=== PATIENT | male | born 1960 | race American Indian/Alaskan Native ===

== ENCOUNTER 2020-08-21 20:41 | Inpatient (IN) | payer MEDICARE ==
--- NOTE | 2020-08-21 21:01 | Emergency Department Report ---
ED Altered Mental Status HPI - General Chief Complaint: Altered Mental Status Stated Complaint: AMS PUI?: No Time Seen by Provider: 08/21/20 20:57 Source: patient, EMS, RN notes reviewed Mode of arrival: Stretcher Limitations: Altered Mental Status, Physical Limitation - History of Present Illness Initial Comments: Patient is a 60-year-old male presents from a local custodial for altered mental status. EMS brought the patient to the emergency room to be evaluated. EMS states that the initial staff states he has not gotten out of bed all day and he normally gets out of bed to go smoke and is weak and tired. Patient was found to be hypotensive by EMS. Patient also has an open chronic ulcer that is foul-smelling on the right lower extremity. Patient denies pain. Patient denies chest pain shortness of breath. Patient denies fever. Patient complains of weakness and fatigue. Patient denies recent travel. Patient denies recent international travel. Patient denies exposure to the novel coronavirus. Patient denies sick contacts. Patient denies fever and chills. Patient denies cough. Patient denies diarr hea. Patient denies coming in contact with anybody with symptoms of the novel coronavirus. MD Complaint: altered mental status, decreased responsiveness, weakness -: Sudden Severity: severe Consistency of Symptoms: constant Treatments Prior to Arrival: IV fluid - Related Data Allergies Allergy/AdvReac Type Severity Reaction Status Date / Time No Known Allergies Allergy Verified 08/21/20 21:39 ED Review of Systems ROS: Stated complaint: AMS Other details as noted in HPI Comment: All other systems reviewed and negative ED Past Medical Hx - Past Medical History Previous Medical History?: Yes Hx Hypertension: Yes Hx CVA: Yes Hx Congestive Heart Failure: Yes Hx Renal Disease: Yes Hx COPD: Yes Hx Dementia: Yes Additional medical history: Chronic ulcers, PVD, diastolic heart failure, vascular dementia, weakness, falls, - Surgical History Past Surgical History?: No - Family History Family history: no significant - Social History Smoking Status: Current Every Day Smoker Substance Use Type: None ED Physical Exam - General Limitations: Altered Mental Status, Physical Limitation General appearance: alert, in no apparent distress - Head Head exam: Present: atraumatic, normocephalic - Eye Eye exam: Present: normal appearance - ENT ENT exam: Present: mucous membranes dry - Neck Neck exam: Present: normal inspection - Respiratory Respiratory exam: Present: normal lung sounds bilaterally. Absent: respiratory distress, wheezes, rales - Cardiovascular Cardiovascular Exam: Present: regular rate, normal rhythm. Absent: systolic murmur, diastolic murmur, rubs, gallop - GI/Abdominal GI/Abdominal exam: Present: soft, normal bowel sounds. Absent: distended, tenderness, guarding - Rectal Rectal exam: Present: deferred - Extremities Exam Extremities exam: Present: normal inspection - Back Exam Back exam: Present: normal inspection - Neurological Exam Neurological exam: Present: alert, altered (Patient is oriented x2. Patient is oriented to person and place. I am GI bleeding is from not taking iron she has heavy periods but not actively vaginal bleeding right now internal medicine) - Psychiatric Psychiatric exam: Present: normal affect, normal mood - Skin Skin exam: Present: warm, dry, normal color, other (Opened ulcer noted to the posterior right lower extremity. Wound bed has a purulent discharge and a foul smell.). Absent: rash - Assessment Assessment Interval: Baseline - Level of Consciousness 1a. Level of Consciousness: alert/keenly responsive - LOC Questions 1b. LOC Questions: answers both correctly - LOC Command 1c. LOC Commands: performs tasks correctly - Best Gaze 2. Best Gaze: normal - Visual 3. Visual: no visual loss - Facial Palsy 4. Facial Palsy: normal symmetrical movement - Motor Arm 5a. Motor Arm Left: no drift 5b. Motor Arm Right: no drift - Motor Leg 6a. Motor Leg Left: no drift 6b. Motor Leg Right: no drift - Limb Ataxia 7. Limb Ataxia: absent - Sensory 8. Sensory: normal - Best Language 9. Best Language: no aphasia - Dysarthria 10. Dysarthria: normal - Extinction and Inattention 11. Extinction/Inattention: no abnormality - Scoring Total Score: 0 Stroke Severity: No Stroke Symptoms ED Course Vital Signs 08/21/20 08/21/20 08/21/20 20:50 21:00 21:15 Temperature Pulse Rate Respiratory Rate Blood Pressure 77/51 85/60 O2 Sat by Pulse 91 99 98 Oximetry 08/21/20 08/21/20 08/21/20 21:30 21:40 21:51 Temperature 97.9 F Pulse Rate 69 71 74 Respiratory 11 L 18 9 L Rate Blood Pressure 77/48 O2 Sat by Pulse 100 90 100 Oximetry 08/21/20 08/21/20 08/21/20 22:00 22:16 22:30 Temperature Pulse Rate 73 74 72 Respiratory 10 L 10 L 10 L Rate Blood Pressure 111/66 118/58 121/61 O2 Sat by Pulse 98 99 98 Oximetry 08/21/20 08/21/20 08/21/20 22:46 23:00 23:16 Temperature Pulse Rate 74 69 72 Respiratory 10 L 10 L 10 L Rate Blood Pressure 103/70 101/63 99/63 O2 Sat by Pulse 98 99 98 Oximetry 08/21/20 08/21/20 08/22/20 23:30 23:46 00:16 Temperature Pulse Rate 73 72 72 Respiratory 9 L 9 L 11 L Rate Blood Pressure 106/62 102/62 105/55 O2 Sat by Pulse 99 100 100 Oximetry 08/22/20 08/22/20 00:30 00:46 Temperature Pulse Rate 75 83 Respiratory 10 L 15 Rate Blood Pressure 110/76 122/77 O2 Sat by Pulse 100 100 Oximetry - Reevaluation(s) Reevaluation #1: Patient is receiving fluids from EMS But the blood pressure still low. Patient will be given another liter of fluid and will monitor blood pressure. Patient started on a sepsis protocol. Due to the patient history of congestive heart failure we will give the fluids over a longer period of time. 08/21/20 21:08 Reevaluation #2: Patient's blood pressure is better. Patient will be given any more fluids slowly. Patient was given clindamycin. 08/21/20 21:37 Reevaluation #3: Patient's blood pressure is improving. Patient states he is feeling a little bit better. I discussed all results with patient. I discussed plan of care with patient. Patient agrees with plan of care and admission. Patient to be admitted to the hospitalist service. 08/21/20 22:57 - Consultations Consultation #1: Hospitalist consulted for admission. Hospitalist to admit patient. 08/21/20 22:57 - Lab Data Result diagrams: 08/21/20 21:15 08/21/20 21:15 Lab Results 08/21/20 08/21/20 08/21/20 Range/Units 21:15 21:15 21:15 WBC 7.3 (4.5-11.0) K/mm3 RBC 3.10 L (3.65-5.03) M/mm3 Hgb 8.9 L (11.8-15.2) gm/dl Hct 26.5 L (35.5-45.6) % MCV 85 (84-94) fl MCH 29 (28-32) pg MCHC 34 (32-34) % RDW 15.5 H (13.2-15.2) % Plt Count 264 (140-440) K/mm3 Lymph % (Auto) 16.5 (13.4-35.0) % [place] % (Auto) 15.0 H (0.0-7.3) % Eos % (Auto) 1.2 (0.0-4.3) % Baso % (Auto) 0.2 (0.0-1.8) % Lymph # (Auto) 1.2 (1.2-5.4) K/mm3 [place] # (Auto) 1.1 H (0.0-0.8) K/mm3 Eos # (Auto) 0.1 (0.0-0.4) K/mm3 Baso # (Auto) 0.0 (0.0-0.1) K/mm3 Seg Neutrophils % 67.1 (40.0-70.0) % Seg Neutrophils # 4.9 (1.8-7.7) K/mm3 PT 14.6 (12.2-14.9) Sec. INR 1.09 (0.87-1.13) Sodium 135 L (137-145) mmol/L Potassium 4.6 (3.6-5.0) mmol/L Chloride 107.5 H (98-107) mmol/L Carbon Dioxide 20 L (22-30) mmol/L Anion Gap 12 mmol/L BUN 97 H (9-20) mg/dL Creatinine 2.7 H (0.8-1.3) mg/dL Estimated GFR 29 ml/min BUN/Creatinine Ratio 36 % Glucose 95 (75-100) mg/dL Lactic Acid (0.7-2.0) mmol/L Calcium 8.3 L (8.4-10.2) mg/dL Total Bilirubin 0.30 (0.1-1.2) mg/dL AST 22 (5-40) units/L ALT 23 (7-56) units/L Alkaline Phosphatase 97 (35-129) units/L Ammonia (25-60) umol/L Total Protein 7.2 (6.3-8.2) g/dL Albumin 3.3 L (3.9-5) g/dL Albumin/Globulin Ratio 0.8 % Plasma/Serum Alcohol (0-0.07) % 08/21/20 08/21/20 08/21/20 Range/Units 21:15 21:15 21:15 WBC (4.5-11.0) K/mm3 RBC (3.65-5.03) M/mm3 Hgb (11.8-15.2) gm/dl Hct (35.5-45.6) % MCV (84-94) fl MCH (28-32) pg MCHC (32-34) % RDW (13.2-15.2) % Plt Count (140-440) K/mm3 Lymph % (Auto) (13.4-35.0) % [place] % (Auto) (0.0-7.3) % Eos % (Auto) (0.0-4.3) % Baso % (Auto) (0.0-1.8) % Lymph # (Auto) (1.2-5.4) K/mm3 [place] # (Auto) (0.0-0.8) K/mm3 Eos # (Auto) (0.0-0.4) K/mm3 Baso # (Auto) (0.0-0.1) K/mm3 Seg Neutrophils % (40.0-70.0) % Seg Neutrophils # (1.8-7.7) K/mm3 PT (12.2-14.9) Sec. INR (0.87-1.13) Sodium (137-145) mmol/L Potassium (3.6-5.0) mmol/L Chloride (98-107) mmol/L Carbon Dioxide (22-30) mmol/L Anion Gap mmol/L BUN (9-20) mg/dL Creatinine (0.8-1.3) mg/dL Estimated GFR ml/min BUN/Creatinine Ratio % Glucose (75-100) mg/dL Lactic Acid 0.60 L (0.7-2.0) mmol/L Calcium (8.4-10.2) mg/dL Total Bilirubin (0.1-1.2) mg/dL AST (5-40) units/L ALT (7-56) units/L Alkaline Phosphatase (35-129) units/L Ammonia 50.0 (25-60) umol/L Total Protein (6.3-8.2) g/dL Albumin (3.9-5) g/dL Albumin/Globulin Ratio % Plasma/Serum Alcohol < 0.01 (0-0.07) % - EKG Data -: EKG Interpreted by Me EKG shows normal: sinus rhythm, axis, intervals, QRS complexes, ST-T waves Rate: normal - Radiology Data Radiology results: report reviewed, image reviewed interpreted by me: Chest x-ray: No pneumonia, no pneumothorax, no foreign body, no osseous findings, no acute findings CHEST 1 VIEW 08/21/2020 8:30 PM INDICATION / CLINICAL INFORMATION: Altered Mental Status. COMPARISON: None available. FINDINGS: SUPPORT DEVICES: None. HEART / MEDIASTINUM: Cardiomegaly LUNGS / PLEURA: Mild increased interstitial prominence in bilateral lungs No pneumothorax. ADDITIONAL FINDINGS: No significant additional findings. IMPRESSION: 1. Cardiomegaly with mild increased pulmonary vascularity Right ankle 3 views INDICATION: Pain FINDINGS: Diffuse soft tissue edema is seen throughout the lower extremity. No bone marrow edema or acute bone findings are definitely seen. Calcaneal spurring is seen. IMPRESSION: Soft tissue ulcerations with diffuse soft tissue edema throughout the lower extremity. No acute fracture CT HEAD WITHOUT CONTRAST INDICATION / CLINICAL INFORMATION: Altered Mental Status. TECHNIQUE: All CT scans at this location are performed using CT dose reduction for ALARA by means of automated exposure control. COMPARISON: None available. FINDINGS: No acute intracranial hemorrhage. There are diffuse areas of low-attenuation periventricular central white matter suggesting nonspecific white matter change. Vascular rashmi cifications are seen throughout the intracranial vessels. Diffuse ethmoid sinus disease and left fr ontal sinus disease. ADDITIONAL FINDINGS: None. IMPRESSION: 1. Diffuse periventricular and central white matter areas of low-attenuation suggesting chronic small vessel disease. If there is concern for acute ischemic change MRI with diffusion recommended. 2. Extensive intracranial atherosclerotic calcifications throughout the vessels. 3. Sinus disease. - Medical Decision Making Patient is a 60-year-old male who presents emergency room with weakness and altered mental status. Patient brought in by EMS from a local emergency room. Patient found to be hypotensive. Patient given fluids but EMS blood pressure remained low. Patient given more fluids after arrival and his blood pressure improved. After initial evaluation, patient was started on sepsis protocol. However because the patient has a history of his heart failure we gave the fluids at a slower rate and lower volume. Patient was given clindamycin for suspected wound infection in his right lower extremity. Patient's source of infection is the right lower extremity ulceration. Patient was given Clinda immediately after initial evaluation. Patient had labs done which revealed acute on chronic renal failure, anemia. Patient had blood cultures done as well. Patient had urine culture done as well. Patient's UA was positive for a UTI. Patient admitted to the hospital service for further evaluation treatment. Critical care time documented due to the multiple reassessments, prolonged time at the bedside, interpretation of diagnostics and labs. - Differential Diagnosis Sepsis, wound infection, hypotension, weakness, altered mental status Critical Care Time: Yes Critical care time in (mins) excluding proc time.: 35 Critical care attestation.: If time is entered above; I have spent that time in minutes in the direct care of this critically ill patient, excluding procedure time. Critical Care Time: 35 minutes ED Disposition Clinical Impression: Wound infection, Weakness Sepsis Qualifiers: Sepsis type: sepsis due to unspecified organism Sepsis acute organ dysfunction status: with acute organ dysfunction Severe sepsis acute organ dysfunction type: encephalopathy Severe sepsis shock status: without septic shock Qualified Code(s): A41.9 - Sepsis, unspecified organism; R65.20 - Severe sepsis without septic shock; G93.40 - Encephalopathy, unspecified Hypotension Qualifiers: Hypotension type: unspecified hypotension type Qualified Code(s): I95.9 - Hypotension, unspecified Ulcer of right ankle Qualifiers: Non-pressure ulcer stage: unspecified non-pressure ulcer stage Qualified Code(s): L97.319 - Non-pressure chronic ulcer of right ankle with unspecified severity Altered mental status Qualifiers: Altered mental status type: unspecified Qualified Code(s): R41.82 - Altered mental status, unspecified Acute on chronic kidney failure Qualifiers: Acute renal failure type: unspecified Chronic kidney disease stage: unspecified stage Qualified Code(s): N17.9 - Acute kidney failure, unspecified; N18.9 - Chronic kidney disease, unspecified UTI (urinary tract infection) Qualifiers: Urinary tract infection type: acute cystitis Hematuria presence: with hematuria Qualified Code(s): N30.01 - Acute cystitis with hematuria Disposition: 09 OP ADMIT IP TO THIS HOSP Is pt being admited?: Yes Does the pt Need Aspirin: No Condition: Critical Time of Disposition: 23:04
[2020-08-21] MEDS ORDERED: SODIUM CHLORIDE 0.9% 1000 ML 1,000 ML IV ONE (21:02)
[2020-08-21] MEDS ORDERED: CLINDAMYCIN 300 MG/50 mL 300 MG/50 ML BAG IV ONE (21:31)
[2020-08-21 21:38] LABS: Basophils % (Auto) 0.2 % (0.0-1.8); Eosinophils # (Auto) 0.1 K/mm3 (0.0-0.4); Eosinophils % (Auto) 1.2 % (0.0-4.3); Hematocrit 26.5 % (35.5-45.6); Hemoglobin 8.9 gm/dl (11.8-15.2); Lymphocytes # (Auto) 1.2 K/mm3 (1.2-5.4); Lymphocytes % (Auto) 16.5 % (13.4-35.0); Mean Corpuscular HGB Conc 34 % (32-34); Mean Corpuscular Volume 85 fl (84-94); Monocytes # (Auto) 1.1 K/mm3 (0.0-0.8); Platelet Count 264 K/mm3 (140-440); Red Cell Distribution Width 15.5 % (13.2-15.2)
[2020-08-21 21:49] LABS: INR 1.09 (0.87-1.13)
[2020-08-21 21:50] LABS: Albumin 3.3 g/dL (3.9-5); Calcium 8.3 mg/dL (8.4-10.2)
--- NOTE | 2020-08-21 22:32 | Cat Scan Report ---
CT HEAD WITHOUT CONTRAST INDICATION / CLINICAL INFORMATION: Altered Mental Status. TECHNIQUE: All CT scans at this location are performed using CT dose reduction for ALARA by means of automated e xposure control. COMPARISON: None available. FINDINGS: No acute intracranial hemorrhage. There are diffuse areas of low-attenuation periventricular central white matter suggesting nonspecific white matter change. Vascular calcifications are seen throughout the intracranial vessels. Diffuse ethmoid sinus disease and left frontal sinus disease. ADDITIONAL FINDINGS: None. IMPRESSION: 1. Diffuse periventricular and central white matter areas of low-attenuation suggesting chronic small vessel disease. If there is concern for acute ischemic change MRI with diffusion recommended. 2. Extensive intracranial atherosclerotic calcifications throughout the vessels. 3. Sinus disease. Signer Name: Ezra Taylor MD Signed: 08/21/2020 10:28 PM Workstation Name: [id number]
--- NOTE | 2020-08-21 22:34 | XRay Report ---
CHEST 1 VIEW 08/21/2020 8:30 PM INDICATION / CLINICAL INFORMATION: Altered Mental Status. COMPARISON: None available. FINDINGS: SUPPORT DEVICES: None. HEART / MEDIASTINUM: Cardiomegaly LUNGS / PLEURA: Mild increased interstitial prominence in bilateral lungs No pneumothorax. ADDITIONAL FINDINGS: No significant additional findings. IMPRESSION: 1. Cardiomegaly with mild increased pulmonary vascularity Right ankle 3 views INDICATION: Pain FINDINGS: Diffuse soft tissue edema is seen throughout the lower extremity. No bone marrow edema or a cute bone findings are definitely seen. Calcaneal spurring is seen. IMPRESSION: Soft tissue ulcerations with diffuse soft tissue edema throughout the lower extremity. No acute fract ure Signer Name: Ezra Taylor MD Signed: 08/21/2020 10:29 PM Workstation Name: [id number]
--- NOTE | 2020-08-21 22:53 | History and Physical Report ---
History of Present Illness Date of examination: 08/21/20 Date of admission: 08/21/2020 Chief complaint: Altered Mental Status History of present illness: 60-year-old -Turkish male with known history of dementia, CVA, CHF, COPD and hypertension resident of a custodial brought into the emergency room today with for evaluation of changes in mental status. He is said to be quite lethargic today and has not been getting out of bed. Patient normally goes out to smoke cigarettes but has been feeling quite weak today. Upon arrival of EMS patient was found to be hypotensive. He has a chronic foul- smelling ulcer on the right ankle. Patient unable to give very good history and most of the information was gotten from the ER staff. Work-up in the emergency room today, he was slightly hypotensive on arrival. CT scan of the head shows chronic small vessel disease. X-ray of the right ankle show soft tissue ulceration with diffuse soft tissue edema throughout the lower extremity, no acute fracture. Labs were significant for worsening BUN and creatinine. Patient has been admitted with chronic right lower extremity ulcer, sepsis, hypotension, acute on chronic renal failure. Past History Past Medical History: COPD, heart failure, hypertension, stroke, other (Chronic Ulcers,Vascular Dementia,Falls) Social history: smoking (Current daily smoker) Family history: no significant family history Medications and Allergies Allergies Allergy/AdvReac Type Severity Reaction Status Date / Time No Known Allergies Allergy Verified 08/21/20 21:39 Review of Systems ROS unobtainable: due to mental status Exam - Constitutional Vitals: Temp Pulse Resp BP Pulse Ox 97.9 F 71 18 77/48 90 08/21/20 21:40 08/21/20 21:40 08/21/20 21:40 08/21/20 21:40 08/21/20 21:40 General appearance: Present: no acute distress, well-nourished - EENT Eyes: Present: PERRL, EOM intact. Absent: scleral icterus ENT: hearing intact, clear oral mucosa, dentition normal - Neck Neck: Present: supple, normal ROM - Respiratory Respiratory effort: normal Respiratory: bilateral: CTA - Cardiovascular Rhythm: regular Heart Sounds: Present: S1 & S2. Absent: gallop, systolic murmur, diastolic murmur - Extremities Extremities: no ischemia, pulses intact, pulses symmetrical, Full ROM Extremity abnormal: edema (1+ bilatera lower extremity edema.), ulceration (Dressing over right ankle ulcer.) Peripheral Pulses: within normal limits - Abdominal General gastrointestinal: Present: soft, non-tender, non-distended, normal bowel sounds. Absent: mass - Integumentary Integumentary: Present: clear, warm, dry. Absent: rash - Musculoskeletal Musculoskeletal: strength equal bilaterally - Psychiatric Psychiatric: appropriate mood/affect, intact judgment & insight, memory intact, cooperative - Neurologic Neurologic: CNII-XII intact, no focal deficits, moves all extremities Results - Labs CBC & Chem 7: 08/21/20 21:15 08/21/20 21:15 Labs: Abnormal lab results 08/21/20 08/21/20 08/21/20 Range/Units 21:15 21:15 21:15 RBC 3.10 L (3.65-5.03) M/mm3 Hgb 8.9 L (11.8-15.2) gm/dl Hct 26.5 L (35.5-45.6) % RDW 15.5 H (13.2-15.2) % [place] % (Auto) 15.0 H (0.0-7.3) % [place] # (Auto) 1.1 H (0.0-0.8) K/mm3 Sodium 135 L (137-145) mmol/L Chloride 107.5 H (98-107) mmol/L Carbon Dioxide 20 L (22-30) mmol/L BUN 97 H (9-20) mg/dL Creatinine 2.7 H (0.8-1.3) mg/dL Lactic Acid 0.60 L (0.7-2.0) mmol/L Calcium 8.3 L (8.4-10.2) mg/dL Albumin 3.3 L (3.9-5) g/dL Assessment and Plan - Patient Problems (1) Sepsis Current Visit: Yes Status: Acute Qualifiers: Sepsis type: sepsis due to unspecified organism Sepsis acute organ dysfunction status: with acute organ dysfunction Severe sepsis acute organ dysfunction type: encephalopathy Severe sepsis shock status: without septic shock Qualified Code(s): A41.9 - Sepsis, unspecified organism; R65.20 - Severe sepsis without septic shock; G93.40 - Encephalopathy, unspecified Plan to address problem: Possibly secondary to underlying chronic right ankle wound. Patient has been started on empiric IV antibiotics and IV fluid. (2) Ulcer of right ankle Current Visit: Yes Status: Acute Qualifiers: Non-pressure ulcer stage: unspecified non-pressure ulcer stage Qualified Code(s): L97.319 - Non-pressure chronic ulcer of right ankle with unspecified severity Plan to address problem: We will continue patient on empiric IV antibiotics. Consult placed to wound care team for evaluation and recommendation. We will consider infectious disease evaluation if needed. (3) Hypotension Current Visit: Yes Status: Acute Qualifiers: Hypotension type: unspecified hypotension type Qualified Code(s): I95.9 - Hypotension, unspecified Plan to address problem: Patient placed on gentle IV hydration. We will monitor vital signs closely. (4) Acute on chronic kidney failure Current Visit: Yes Status: Acute Qualifiers: Acute renal failure type: unspecified Chronic kidney disease stage: unspecified stage Qualified Code(s): N17.9 - Acute kidney failure, unspecified; N18.9 - Chronic kidney disease, unspecified Plan to address problem: Consult placed to nephrology for evaluation and recommendation. (5) DVT prophylaxis Current Visit: Yes Status: Acute Plan to address problem: Patient placed on subcutaneous heparin. (6) Full code status Current Visit: Yes Status: Acute Plan to address problem: Patient is full code.
[2020-08-21] MEDS ORDERED: ONDANSETRON 4 MG/2 ML INJ IV PRN (23:01)
[2020-08-21] MEDS ORDERED: ACETAMINOPHEN 325 MG TAB PO PRN (23:01)
[2020-08-21] MEDS ORDERED: MAGNESIUM HYDROXIDE (MOM) ORAL LIQD UDC PO PRN (23:01)
[2020-08-22 01:23] LABS: Bacteria,Urine 1+ /HPF (Negative); Mucus,Urine FEW /HPF
[2020-08-22 01:24] LABS: Amphetamine Screen,Urine Negative; Benzodiazepines Screen,Urine Negative; Cannabinoid Screen,Urine Negative; Cocaine Screen,Urine Negative; Methadone Screen,Urine Negative; Opiate Screen,Urine Negative; WBC,Urine > 182.0 /HPF (0.0-6.0)
[2020-08-22 01:26] LABS: Color,Urine Yellow (Yellow); Protein,Urine <15 mg/dL mg/dL (Negative)
[2020-08-22 01:27] LABS: Urobilinogen,Urine < 2.0 mg/dL (<2.0)
[2020-08-22 01:30] LABS: Ictotest,Urine Negative (Negative)
[2020-08-22] MEDS: SODIUM CHLORIDE 0.9% 1000 ML 1,000 ML IV SCH ×2 (02:04→22:58)
[2020-08-22] MEDS: MORPHINE 2 MG/1 ML INJ IV PRN ×2 (02:04→21:59)
[2020-08-22] MEDS: HEPARIN 5,000 UNIT/1 ML VIAL SUB-Q SCH ×3 (05:20→21:57)
[2020-08-22 06:00] LABS: Basophils % (Auto) 0.3 % (0.0-1.8); Eosinophils # (Auto) 0.1 K/mm3 (0.0-0.4); Eosinophils % (Auto) 0.6 % (0.0-4.3); Hematocrit 29.2 % (35.5-45.6); Hemoglobin 9.6 gm/dl (11.8-15.2); Mean Corpuscular HGB Conc 33 % (32-34); Mean Corpuscular Volume 84 fl (84-94); Monocytes # (Auto) 1.1 K/mm3 (0.0-0.8); Monocytes % (Auto) 11.2 % (0.0-7.3); Platelet Count 264 K/mm3 (140-440); Red Blood Count 3.47 M/mm3 (3.65-5.03); Red Cell Distribution Width 15.3 % (13.2-15.2)
[2020-08-22] MEDS ORDERED: CLINDAMYCIN 600 MG/50 mL 600 MG/50 ML BAG IV SCH (06:00)
[2020-08-22 06:11] LABS: INR 1.11 (0.87-1.13)
[2020-08-22 06:19] LABS: Calcium 9.2 mg/dL (8.4-10.2)
--- NOTE | 2020-08-22 09:09 | Progress Note ---
Assessment and Plan Assessment and plan: 60-year-old -[place] male with known history of dementia, CVA, CHF, COPD and hypertension resident of a group home brought into the emergency room today with for evaluation of changes in mental status. He is said to be quite lethargic today and has not been getting out of bed. Patient normally goes out to smoke cigarettes but has been feeling quite weak today. Upon arrival of EMS patient was found to be hypotensive. He has a chronic foul- smelling ulcer on the right ankle. Patient unable to give very good history and most of the information was gotten from the ER staff. Work-up in the emergency room today, he was slightly hypotensive on arrival. CT scan of the head shows chronic small vessel disease. X-ray of the right ankle show soft tissue ulceration with diffuse soft tissue edema throughout the lower extremity, no acute fracture. Labs were significant for worsening BUN and creatinine. Patient has been admitted with chronic right lower extremity ulcer, sepsis, hypotension, acute on chronic renal failure. 08/22: ID consulted, awaiting wound management, may need Debridement. Sitter requested. Continue supportive care. (1) Sepsis Current Visit: Yes Status: Acute Qualifiers: Sepsis type: sepsis due to unspecified organism Sepsis acute organ dysfunction status: with acute organ dysfunction Severe sepsis acute organ dysfunction type: encephalopathy Severe sepsis shock status: without septic shock Qualified Code(s): A41.9 - Sepsis, unspecified organism; R65.20 - Severe sepsis without septic shock; G93.40 - Encephalopathy, unspecified Plan to address problem: Possibly secondary to underlying chronic right ankle wound. Patient has been started on empiric IV antibiotics and IV fluid. (2) Ulcer of right ankle Current Visit: Yes Status: Acute Qualifiers: Non-pressure ulcer stage: unspecified non-pressure ulcer stage Qualified Code(s): L97.319 - Non-pressure chronic ulcer of right ankle with unspecified severity Plan to address problem: We will continue patient on empiric IV antibiotics. Consult placed to wound care team for evaluation and recommendation. We will consider infectious disease evaluation if needed. (3) Hypotension Current Visit: Yes Status: Acute Qualifiers: Hypotension type: unspecified hypotension type Qualified Code(s): I95.9 - Hypotension, unspecified Plan to address problem: Patient placed on gentle IV hydration. We will monitor vital signs closely. (4) Acute on chronic kidney failure Current Visit: Yes Status: Acute Qualifiers: Acute renal failure type: unspecified Chronic kidney disease stage: unspecified stage Qualified Code(s): N17.9 - Acute kidney failure, unspecified; N18.9 - Chronic kidney disease, unspecified Plan to address problem: Consult placed to nephrology for evaluation and recommendation. (5) DVT prophylaxis Current Visit: Yes Status: Acute Plan to address problem: Patient placed on subcutaneous heparin. (6) Full code status Current Visit: Yes Status: Acute Plan to address problem: Patient is full code. History Interval history: Patient seen and examined this morning still lethargic, confused Hospitalist Physical - Physical exam Narrative exam: General appearance: Present: no acute distress, well-nourished otherwise chronically ill-appearing - EENT Eyes: Present: PERRL, EOM intact. Absent: scleral icterus ENT: hearing intact, clear oral mucosa, dentition normal - Neck Neck: Present: supple, normal ROM - Respiratory Respiratory effort: normal Respiratory: bilateral: CTA - Cardiovascular Rhythm: regular Heart Sounds: Present: S1 & S2. Absent: gallop, systolic murmur, diastolic murmur - Extremities Extremities: no ischemia, pulses intact, pulses symmetrical, Full ROM Extremity abnormal: edema (1+ bilatera lower extremity edema.), ulceration (Dressing over right ankle ulcer.) Peripheral Pulses: within normal limits - Abdominal General gastrointestinal: Present: soft, non-tender, non-distended, normal bowel sounds. Absent: mass - Integumentary Integumentary: Present: clear, warm, dry. Absent: rash - Musculoskeletal Musculoskeletal: strength equal bilaterally - Psychiatric Psychiatric: a confused, lacks insight into his clinical condition - Neurologic Neurologic: CNII-XII intact, no focal deficits, moves all extremities - Constitutional Vitals: Temp Pulse Resp BP Pulse Ox 98.8 F 95 H 20 159/92 97 08/22/20 08:27 08/22/20 08:27 08/22/20 08:27 08/22/20 08:27 08/22/20 08:27 General appearance: Present: no acute distress, well-nourished Results - Labs CBC & Chem 7: 08/22/20 05:29 08/22/20 05:29 Labs: Laboratory Last Values WBC 9.9 K/mm3 (4.5-11.0) 08/22/20 05:29 RBC 3.47 M/mm3 (3.65-5.03) L 08/22/20 05:29 Hgb 9.6 gm/dl (11.8-15.2) L 08/22/20 05:29 Hct 29.2 % (35.5-45.6) L 08/22/20 05:29 MCV 84 fl (84-94) 08/22/20 05:29 MCH 28 pg (28-32) 08/22/20 05:29 MCHC 33 % (32-34) 08/22/20 05:29 RDW 15.3 % (13.2-15.2) H 08/22/20 05:29 Plt Count 264 K/mm3 (140-440) 08/22/20 05:29 Lymph % (Auto) 10.0 % (13.4-35.0) L 08/22/20 05:29 [place] % (Auto) 11.2 % (0.0-7.3) H 08/22/20 05:29 Eos % (Auto) 0.6 % (0.0-4.3) 08/22/20 05:29 Baso % (Auto) 0.3 % (0.0-1.8) 08/22/20 05:29 Lymph # (Auto) 1.0 K/mm3 (1.2-5.4) L 08/22/20 05:29 [place] # (Auto) 1.1 K/mm3 (0.0-0.8) H 08/22/20 05:29 Eos # (Auto) 0.1 K/mm3 (0.0-0.4) 08/22/20 05:29 Baso # (Auto) 0.0 K/mm3 (0.0-0.1) 08/22/20 05:29 Seg Neutrophils % 77.9 % (40.0-70.0) H 08/22/20 05:29 Seg Neutrophils # 7.7 K/mm3 (1.8-7.7) 08/22/20 05:29 PT 14.8 Sec. (12.2-14.9) 08/22/20 05:29 INR 1.11 (0.87-1.13) 08/22/20 05:29 Sodium 145 mmol/L (137-145) D 08/22/20 05:29 Potassium 4.7 mmol/L (3.6-5.0) 08/22/20 05:29 Chloride 111.4 mmol/L (98-107) H 08/22/20 05:29 Carbon Dioxide 22 mmol/L (22-30) 08/22/20 05:29 Anion Gap 16 mmol/L 08/22/20 05:29 BUN 90 mg/dL (9-20) H 08/22/20 05:29 Creatinine 2.2 mg/dL (0.8-1.3) H 08/22/20 05:29 Estimated GFR 37 ml/min 08/22/20 05:29 BUN/Creatinine Ratio 41 % 08/22/20 05:29 Glucose 85 mg/dL (75-100) 08/22/20 05:29 Lactic Acid 0.40 mmol/L (0.7-2.0) L 08/22/20 00:29 Calcium 9.2 mg/dL (8.4-10.2) 08/22/20 05:29 Total Bilirubin 0.30 mg/dL (0.1-1.2) 08/21/20 21:15 AST 22 units/L (5-40) 08/21/20 21:15 ALT 23 units/L (7-56) 08/21/20 21:15 Alkaline Phosphatase 97 units/L (35-129) 08/21/20 21:15 Ammonia 50.0 umol/L (25-60) 08/21/20 21:15 Total Protein 7.2 g/dL (6.3-8.2) 08/21/20 21:15 Albumin 3.3 g/dL (3.9-5) L 08/21/20 21:15 Albumin/Globulin Ratio 0.8 % 08/21/20 21:15 Urine Color Yellow (Yellow) 08/22/20 Unknown Urine Turbidity Clear (Clear) 08/22/20 Unknown Urine pH 5.0 (5.0-7.0) 08/22/20 Unknown Ur Specific [place] 1.020 (1.003-1.030) 08/22/20 Unknown Urine Protein <15 mg/dl mg/dL (Negative) 08/22/20 Unknown Urine Glucose (UA) Negative mg/dL (Negative) 08/22/20 Unknown Urine Ketones Negative mg/dL (Negative) 08/22/20 Unknown Urine Nitrite Negative (Negative) 08/22/20 Unknown Ur Reducing Substances Not Reportable 08/22/20 Unknown Urine Ictotest Negative (Negative) 08/22/20 Unknown Urine Urobilinogen < 2.0 mg/dL (<2.0) 08/22/20 Unknown Ur Leukocyte Esterase Moderate (Negative) 08/22/20 Unknown Urine WBC (Auto) > 182.0 /HPF (0.0-6.0) H 08/22/20 Unknown Urine RBC (Auto) 5.0 /HPF (0.0-6.0) 08/22/20 Unknown U Epithel Cells (Auto) 1.0 /HPF (0-13.0) 08/22/20 Unknown Urine Bacteria (Auto) 1+ /HPF (Negative) 08/22/20 Unknown Urine WBC Clumps 2+ /HPF 08/22/20 Unknown Urine Mucus Few /HPF 08/22/20 Unknown Urine Yeast (Budding) 1+ /HPF 08/22/20 Unknown Urine Opiates Screen Negative 08/22/20 Unknown Urine Methadone Screen Negative 08/22/20 Unknown Ur Barbiturates Screen Negative 08/22/20 Unknown Ur Phencyclidine Scrn Negative 08/22/20 Unknown Ur Amphetamines Screen Negative 08/22/20 Unknown U Benzodiazepines Scrn Negative 08/22/20 Unknown Urine Cocaine Screen Negative 08/22/20 Unknown U Marijuana (THC) Screen Negative 08/22/20 Unknown Drugs of Abuse Note Disclamer 08/22/20 Unknown Plasma/Serum Alcohol < 0.01 % (0-0.07) 08/21/20 21:15 Microbiology: Microbiology 08/21/20 21:15 Peripheral/Venous Blood Culture - Preliminary Culture in Progress 08/21/20 21:34 Peripheral/Venous Blood Culture - Preliminary Culture in Progress Active Medications - Current Medications Current Medications: Generic Name Dose Route Start Last Admin Trade Name Freq PRN Reason Stop Dose Admin Acetaminophen 650 mg 08/21/20 23:01 Acetaminophen 325 Mg Tab PO Q4H PRN Pain MILD(1-3)/Fever >100.5/DEVI Heparin Sodium (Porcine) 5,000 unit 08/22/20 06:00 08/22/20 05:20 Heparin 5,000 Unit/1 Ml Vial SUB-Q 5,000 unit Q8HR ELIOT Administration Sodium Chloride 1,000 mls @ 75 mls/hr 08/21/20 23:15 08/22/20 02:04 Nacl 0.9% 1000 Ml IV 75 mls/hr DIRECT ELIOT Administration Clindamycin HCl 600 mg in 50 mls @ 100 mls/hr 08/22/20 06:00 08/22/20 05:14 Cleocin 600 Mg/50 Ml IV 100 mls/hr Q8H ELIOT Administration Protocol Magnesium Hydroxide 30 ml 08/21/20 23:01 Magnesium Hydroxide (Mom) Oral Liqd Udc PO Q4H PRN Constipation Morphine Sulfate 2 mg 08/21/20 23:01 08/22/20 02:04 Morphine 2 Mg/1 Ml Inj IV 2 mg Q4H PRN Administration Pain, Moderate (4-6) Ondansetron HCl 4 mg 08/21/20 23:01 Ondansetron 4 Mg/2 Ml Inj IV Q8H PRN Nausea And Vomiting Sodium Chloride 10 ml 08/22/20 10:00 Sodium Chloride 0.9% 10 Ml Flush Syringe IV BID ELIOT Sodium Chloride 10 ml 08/21/20 23:01 Sodium Chloride 0.9% 10 Ml Flush Syringe IV PRN PRN LINE FLUSH
--- NOTE | 2020-08-22 10:31 | Consultation ---
History of Present Illness - Reason for Consult Consult date: 08/22/20 acute renal failure - History of Present Illness The patient is a 60 YO AAM with known history of HTN, Dementia, CVA, CHF, COPD and NH resident who was brought into the [facility] ED 08/21 for evaluation of AMS. Patient was not able to provide any history and there was no family member at the bedside. Per chart patient normally goes out to smoke cigarettes but was feeling quite weak to get up. Upon arrival of EMS patient was found to be hypotensive. CT scan of the head showed chronic small vessel disease. X-ray of the right ankle showed soft tissue ulceration with diffuse soft tissue edema throughout the lower extremity, no acute fracture. Labs significant for BUN 97, creatinine 2.7 and bicarb 20. Patient was admitted with right lower extremity ulcer, ?sepsis, hypotension and DANIKA. Nephrology was consulted for further evaluation and treatment of DANIKA. Past History Past Medical History: COPD, heart failure, hypertension, stroke, other (Chronic Ulcers,Vascular Dementia,Falls) Social history: smoking (Current daily smoker) Family history: no significant family history Medications and Allergies Allergies Allergy/AdvReac Type Severity Reaction Status Date / Time No Known Allergies Allergy Verified 08/21/20 21:39 Active Meds: Active Medications Acetaminophen (Acetaminophen 325 Mg Tab) 650 mg PO Q4H PRN PRN Reason: Pain MILD(1-3)/Fever >100.5/DEVI Heparin Sodium (Porcine) (Heparin 5,000 Unit/1 Ml Vial) 5,000 unit SUB-Q Q8HR ELIOT Last Admin: 08/22/20 05:20 Dose: 5,000 unit Documented by: Sodium Chloride (Nacl 0.9% 1000 Ml) 1,000 mls @ 75 mls/hr IV DIRECT ELIOT Last Admin: 08/22/20 02:04 Dose: 75 mls/hr Documented by: Clindamycin HCl (Cleocin 600 Mg/50 Ml) 600 mg in 50 mls @ 100 mls/hr IV Q8H ELIOT; Protocol Last Admin: 08/22/20 05:14 Dose: 100 mls/hr Documented by: Magnesium Hydroxide (Magnesium Hydroxide (Mom) Oral Liqd Udc) 30 ml PO Q4H PRN PRN Reason: Constipation Morphine Sulfate (Morphine 2 Mg/1 Ml Inj) 2 mg IV Q4H PRN PRN Reason: Pain, Moderate (4-6) Last Admin: 08/22/20 02:04 Dose: 2 mg Documented by: Ondansetron HCl (Ondansetron 4 Mg/2 Ml Inj) 4 mg IV Q8H PRN PRN Reason: Nausea And Vomiting Sodium Chloride (Sodium Chloride 0.9% 10 Ml Flush Syringe) 10 ml IV BID ELIOT Sodium Chloride (Sodium Chloride 0.9% 10 Ml Flush Syringe) 10 ml IV PRN PRN PRN Reason: LINE FLUSH Review of Systems ROS unobtainable: due to mental status Exam - Vital Signs Vital signs: Vital Signs Pulse Ox 91 08/21/20 20:50 Results - Lab Results 08/22/20 05:29 08/22/20 05:29 Most recent lab results Calcium 9.2 mg/dL (8.4-10.2) 08/22/20 05:29 Assessment and Plan 1. Acute kidney injury: Vasomotor DANIKA in the setting of hypotension / shock. Urine studies and Renal US ordered. Baseline renal function unknown. Continue IV fluids. Monitor renal function. Creatinine level is improving. Renal prognosis is guarded. Avoid nephrotoxic agents. Meds dosage based on GFR. 2. FEN: Monitor lytes and volume status. 3. Hypotension: BP is improving. 4. UTI: UA with pyuria, follow-up urine cultures. Followed by ID. 5. Chronic right lower extremity wound: Wound care. 6. Anemia, POA: Monitor. Subjective: Patient was seen and examined at the bedside. Examination: General appearance: well-developed, appears stated age, no distress HEENT: ATNC, MATILDE Neck: trachea midline Respiratory: Clear to Auscultation Heart: regular, S1S2, no murmur Gastrointestinal: soft, normoactive bowel sounds, not tender, not distended Integumentary: R leg covered with dressing, LE stasis changes noted Neurologic: lethargic, confused, not following any command Ext: R leg warm to touch
--- NOTE | 2020-08-22 12:38 | Consultation ---
History of Present Illness - Reason for Consult Consult date: 08/22/20 t Requesting physician: GRANT BRANCH - History of Present Illness The patient is a 60-year-old male with dementia, CVA, COPD, jail resident was admitted to the hospital due to change in mental status and concern for wound infection on his right leg. Upon evaluation in the ER, he was afebrile. Labs did not show any leukocytosis. Chemistry profile showed creatinine of 2.7. UA also showed pyuria. Infectious diseases was consulted for additional evaluation. Patient is a poor historian. Denies any specific complaints at this time. Review of Systems: Limited due to above Past History Past Medical History: COPD, heart failure, hypertension, stroke, other (Chronic Ulcers,Vascular Dementia,Falls) Social history: smoking (Current daily smoker) Family history: no significant family history Medications and Allergies Allergies Allergy/AdvReac Type Severity Reaction Status Date / Time No Known Allergies Allergy Verified 08/21/20 21:39 Active Meds: Active Medications Acetaminophen (Acetaminophen 325 Mg Tab) 650 mg PO Q4H PRN PRN Reason: Pain MILD(1-3)/Fever >100.5/DEVI Heparin Sodium (Porcine) (Heparin 5,000 Unit/1 Ml Vial) 5,000 unit SUB-Q Q8HR ELIOT Last Admin: 08/22/20 05:20 Dose: 5,000 unit Documented by: Sodium Chloride (Nacl 0.9% 1000 Ml) 1,000 mls @ 75 mls/hr IV DIRECT ELIOT Last Admin: 08/22/20 02:04 Dose: 75 mls/hr Documented by: Magnesium Hydroxide (Magnesium Hydroxide (Mom) Oral Liqd Udc) 30 ml PO Q4H PRN PRN Reason: Constipation Morphine Sulfate (Morphine 2 Mg/1 Ml Inj) 2 mg IV Q4H PRN PRN Reason: Pain, Moderate (4-6) Last Admin: 08/22/20 02:04 Dose: 2 mg Documented by: Ondansetron HCl (Ondansetron 4 Mg/2 Ml Inj) 4 mg IV Q8H PRN PRN Reason: Nausea And Vomiting Sodium Chloride (Sodium Chloride 0.9% 10 Ml Flush Syringe) 10 ml IV BID [facility] Last Admin: 08/22/20 10:39 Dose: 10 ml Documented by: Sodium Chloride (Sodium Chloride 0.9% 10 Ml Flush Syringe) 10 ml IV PRN PRN PRN Reason: LINE FLUSH Physical Examination - Physical Exam Narrative exam: Physical Exam: Constitutional: Alert, cooperative. No acute distress Head, Ears, Nose: Normocephalic, atraumatic. External ears, nose normal Eyes: Conjunctivae/corneas clear. No icterus. No ptosis. Neck: Supple, no meningeal signs Cardiovascular: S1, S2 normal. Respiratory: Good air entry, clear to auscultation bilaterally GI: Soft, non-tender; bowel sounds normal. No peritoneal signs Musculoskeletal: RLE edema with a large wound that appears heavily colonized with some slough, wound suggestive of likely pyoderma Skin: No rash or abscess Hem/Lymphatic: No palpable cervical or supraclavicular nodes. No lymphangitis Psych: Flat affect Neurological: Awake, alert, answering questions - Constitutional Vitals: Vital Signs Temp Pulse Resp BP Pulse Ox 98.8 F 95 H 20 159/92 97 08/22/20 08:27 08/22/20 08:27 08/22/20 08:27 08/22/20 08:27 08/22/20 08:27 Temperature -Last 24 Hours Temperature 98.8 F Temperature 97.8 F Temperature 98.5 F Temperature 97.9 F Results - Labs CBC & Chem 7: 08/22/20 05:29 08/22/20 05:29 Labs: Abnormal lab results 08/21/20 08/21/20 08/21/20 Range/Units 21:15 21:15 21:15 RBC 3.10 L (3.65-5.03) M/mm3 Hgb 8.9 L (11.8-15.2) gm/dl Hct 26.5 L (35.5-45.6) % RDW 15.5 H (13.2-15.2) % Lymph % (Auto) (13.4-35.0) % [place] % (Auto) 15.0 H (0.0-7.3) % Lymph # (Auto) (1.2-5.4) K/mm3 [place] # (Auto) 1.1 H (0.0-0.8) K/mm3 Seg Neutrophils % (40.0-70.0) % Sodium 135 L (137-145) mmol/L Chloride 107.5 H (98-107) mmol/L Carbon Dioxide 20 L (22-30) mmol/L BUN 97 H (9-20) mg/dL Creatinine 2.7 H (0.8-1.3) mg/dL Lactic Acid 0.60 L (0.7-2.0) mmol/L Calcium 8.3 L (8.4-10.2) mg/dL Albumin 3.3 L (3.9-5) g/dL Urine WBC (Auto) (0.0-6.0) /HPF 08/22/20 08/22/20 08/22/20 Range/Units 00:29 05:29 05:29 RBC 3.47 L (3.65-5.03) M/mm3 Hgb 9.6 L (11.8-15.2) gm/dl Hct 29.2 L (35.5-45.6) % RDW 15.3 H (13.2-15.2) % Lymph % (Auto) 10.0 L (13.4-35.0) % [place] % (Auto) 11.2 H (0.0-7.3) % Lymph # (Auto) 1.0 L (1.2-5.4) K/mm3 [place] # (Auto) 1.1 H (0.0-0.8) K/mm3 Seg Neutrophils % 77.9 H (40.0-70.0) % Sodium (137-145) mmol/L Chloride 111.4 H (98-107) mmol/L Carbon Dioxide (22-30) mmol/L BUN 90 H (9-20) mg/dL Creatinine 2.2 H (0.8-1.3) mg/dL Lactic Acid 0.40 L (0.7-2.0) mmol/L Calcium (8.4-10.2) mg/dL Albumin (3.9-5) g/dL Urine WBC (Auto) (0.0-6.0) /HPF 08/22/20 Range/Units Unknown RBC (3.65-5.03) M/mm3 Hgb (11.8-15.2) gm/dl Hct (35.5-45.6) % RDW (13.2-15.2) % Lymph % (Auto) (13.4-35.0) % [place] % (Auto) (0.0-7.3) % Lymph # (Auto) (1.2-5.4) K/mm3 [place] # (Auto) (0.0-0.8) K/mm3 Seg Neutrophils % (40.0-70.0) % Sodium (137-145) mmol/L Chloride (98-107) mmol/L Carbon Dioxide (22-30) mmol/L BUN (9-20) mg/dL Creatinine (0.8-1.3) mg/dL Lactic Acid (0.7-2.0) mmol/L Calcium (8.4-10.2) mg/dL Albumin (3.9-5) g/dL Urine WBC (Auto) > 182.0 H (0.0-6.0) /HPF - Imaging and Cardiology Chest x-ray: report reviewed, image reviewed (no pneumonia seen.) Assessment and Plan Cultures: 08/21/2020 blood culture: In process A/P: 60-year-old male with dementia, CVA, COPD, jail resident was admitted to the hospital due to change in mental status: #UTI: UA with pyuria, follow-up urine cultures. #Chronic right lower extremity wound: Large chronic appearing wound with features suggestive of possible pyoderma. No acute cellulitis around it, Mainstay is wound care. #DANIKA versus CKD: Renally dose antibiotics. Recs: -IV ceftriaxone ordered -clindamycin stopped -Follow-up cultures -Wound care to SHANTHI Cates MD, FACP [facility] O: [phone] F: [phone]
--- NOTE | 2020-08-22 14:20 | Electrocardiograph Report ---
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
[2020-08-22] MEDS: cefTRIAXone/NS 2 GM/100 ML 2 GM/100 ML BAG IV SCH (15:00)
[2020-08-22] MEDS ORDERED: LORazepam 2 MG/ML VIAL IV ONE (16:38)
--- NOTE | 2020-08-22 22:33 | Ultrasound Report ---
Renal ultrasound INDICATION: Kidney disease FINDINGS: Right kidney measures 10.3 cm in left kidney 13.7 cm. There is a left renal cyst measuring 4.9 x 5.4 x 4.4 cm. Bladder is not well-distended. IMPRESSION: Bladder is not well-distended. Left renal cyst. Signer Name: Ezra Taylor MD Signed: 08/22/2020 10:28 PM Workstation Name: [id number]
[2020-08-23] MEDS: MORPHINE 2 MG/1 ML INJ IV PRN ×2 (02:11→21:32)
[2020-08-23] MEDS ORDERED: LORazepam 2 MG/ML VIAL IV ONE (02:27)
[2020-08-23 04:39] LABS: Hematocrit 30.5 % (35.5-45.6); Hemoglobin 10.2 gm/dl (11.8-15.2); Mean Corpuscular HGB Conc 33 % (32-34); Mean Corpuscular Volume 83 fl (84-94); Platelet Count 314 K/mm3 (140-440); Red Blood Count 3.66 M/mm3 (3.65-5.03); Red Cell Distribution Width 15.8 % (13.2-15.2)
[2020-08-23 05:01] LABS: Calcium 9.5 mg/dL (8.4-10.2)
[2020-08-23] MEDS: HEPARIN 5,000 UNIT/1 ML VIAL SUB-Q SCH ×3 (05:17→21:33)
[2020-08-23] MEDS ORDERED: DEXTROSE 5% IN WATER 1,000 ML IV SCH (08:00)
[2020-08-23] MEDS: cefTRIAXone/NS 2 GM/100 ML 2 GM/100 ML BAG IV SCH (10:33)
--- NOTE | 2020-08-23 10:35 | Progress Note ---
Assessment and Plan 1. Acute kidney injury: Vasomotor DANIKA in the setting of hypotension / shock. Renal US negative. Urine studies ordered. Baseline renal function unknown. Continue IV fluids. Monitor renal function. Creatinine level is improving. Avoid nephrotoxic agents. Meds dosage based on GFR. 2. FEN: Hypernatremia, IV D5W, monitor. Hyperkalemia, Kayexalate, monitor. Monitor lytes and volume status. 3. Hypotension: BP is better. 4. UTI: UA with pyuria, follow-up urine cultures. Followed by ID. 5. Chronic right lower extremity wound: Wound care. 6. Anemia, POA: Monitor. Subjective: Patient was seen and examined at the bedside. Examination: General appearance: well-developed, appears stated age, no distress HEENT: ATNC, MATILDE Neck: trachea midline Respiratory: Clear to Auscultation Heart: regular, S1S2, no murmur Gastrointestinal: soft, normoactive bowel sounds, not tender, not distended Integumentary: R leg covered with dressing, LE stasis changes noted Neurologic: lethargic, confused, not following any command Ext: R leg slightly warm to touch Subjective Date of service: 08/23/20 Objective - Vital Signs Vital signs: Vital Signs - 12hr 08/22/20 08/23/20 08/23/20 23:38 04:00 05:06 Temperature 98.1 F 97.9 F Pulse Rate 97 H 84 Respiratory 18 18 Rate Blood Pressure Blood Pressure 160/100 135/64 [Left] O2 Sat by Pulse 99 94 99 Oximetry 08/23/20 07:43 Temperature 98.9 F Pulse Rate 98 H Respiratory 16 Rate Blood Pressure 183/105 Blood Pressure [Left] O2 Sat by Pulse 97 Oximetry - Lab 08/23/20 04:14 08/23/20 04:14 Most recent lab results Calcium 9.5 mg/dL (8.4-10.2) 08/23/20 04:14 Medications & Allergies - Medications Allergies/Adverse Reactions: Allergies No Known Allergies Allergy (Verified 08/21/20 21:39) Active Medications: Generic Name Dose Route Start Last Admin Trade Name Freq PRN Reason Stop Dose Admin Acetaminophen 650 mg 08/21/20 23:01 Acetaminophen 325 Mg Tab PO Q4H PRN Pain MILD(1-3)/Fever >100.5/DEVI Heparin Sodium (Porcine) 5,000 unit 08/22/20 06:00 08/23/20 05:17 Heparin 5,000 Unit/1 Ml Vial SUB-Q 5,000 unit Q8HR ELIOT Administration Ceftriaxone Sodium 2 gm in 100 mls @ 200 mls/hr 08/22/20 13:00 08/22/20 21:43 Rocephin/Ns 2 Gm/100 Ml IV Infused Q24HR ELIOT Infusion Protocol Dextrose 1,000 mls @ 75 mls/hr 08/23/20 08:00 D5w IV DIRECT ELIOT Magnesium Hydroxide 30 ml 08/21/20 23:01 Magnesium Hydroxide (Mom) Oral Liqd Udc PO Q4H PRN Constipation Morphine Sulfate 2 mg 08/21/20 23:01 08/23/20 02:11 Morphine 2 Mg/1 Ml Inj IV 2 mg Q4H PRN Administration Pain, Moderate (4-6) Ondansetron HCl 4 mg 08/21/20 23:01 08/23/20 02:19 Ondansetron 4 Mg/2 Ml Inj IV 4 mg Q8H PRN Administration Nausea And Vomiting Sodium Chloride 10 ml 08/22/20 10:00 08/22/20 21:58 Sodium Chloride 0.9% 10 Ml Flush Syringe IV 10 ml BID ELIOT Administration Sodium Chloride 10 ml 08/21/20 23:01 Sodium Chloride 0.9% 10 Ml Flush Syringe IV PRN PRN LINE FLUSH
--- NOTE | 2020-08-23 12:00 | Progress Note ---
Assessment and Plan Assessment and plan: 60-year-old -[place] male with known history of dementia, CVA, CHF, COPD and hypertension resident of a [facility] brought into the emergency room today with for evaluation of changes in mental status. He is said to be quite lethargic today and has not been getting out of bed. Patient normally goes out to smoke cigarettes but has been feeling quite weak today. Upon arrival of EMS patient was found to be hypotensive. He has a chronic foul- smelling ulcer on the right ankle. Patient unable to give very good history and most of the information was gotten from the ER staff. Work-up in the emergency room today, he was slightly hypotensive on arrival. CT scan of the head shows chronic small vessel disease. X-ray of the right ankle show soft tissue ulceration with diffuse soft tissue edema throughout the lower extremity, no acute fracture. Labs were significant for worsening BUN and creatinine. Patient has been admitted with chronic right lower extremity ulcer, sepsis, hypotension, acute on chronic renal failure. 08/22: ID consulted, awaiting wound management, may need Debridement. Sitter requested. Continue supportive care. 08/23/20 patient is seen and examined. Patient is confused. Patient is try to get out of the bed. Continue IV ceftriaxone. Urine culture. Wound care evaluation. Potassium is 5.5. Patient is given Kayexalate 30 g p.o. x1 dose. Recheck CBC BMP in the morning. Continue supportive care. (1) Sepsis Current Visit: Yes Status: Acute Qualifiers: Sepsis type: sepsis due to unspecified organism Sepsis acute organ dysfunction status: with acute organ dysfunction Severe sepsis acute organ dysfunction type: encephalopathy Severe sepsis shock status: without septic shock Qualified Code(s): A41.9 - Sepsis, unspecified organism; R65.20 - Severe sepsis without septic shock; G93.40 - Encephalopathy, unspecified Plan to address problem: Possibly secondary to underlying chronic right ankle wound. Patient has been started on empiric IV antibiotics and IV fluid. (2) Ulcer of right ankle Current Visit: Yes Status: Acute Qualifiers: Non-pressure ulcer stage: unspecified non-pressure ulcer stage Qualified Code(s): L97.319 - Non-pressure chronic ulcer of right ankle with unspecified s everity Plan to address problem: We will continue patient on empiric IV antibiotics. Consult placed to wound care team for evaluation and recommendation. We will consider infectious disease evaluation if needed. (3) Hypotension Current Visit: Yes Status: Acute Qualifiers: Hypotension type: unspecified hypotension type Qualified Code(s): I95.9 - Hypotension, unspecified Plan to address problem: Patient placed on gentle IV hydration. We will monitor vital signs closely. (4) Acute on chronic kidney failure Current Visit: Yes Status: Acute Qualifiers: Acute renal failure type: unspecified Chronic kidney disease stage: unspecified stage Qualified Code(s): N17.9 - Acute kidney failure, unspecified; N18.9 - Chronic kidney disease, unspecified Plan to address problem: Consult placed to nephrology for evaluation and recommendation. (5) DVT prophylaxis Current Visit: Yes Status: Acute Plan to address problem: Patient placed on subcutaneous heparin. (6) Full code status Current Visit: Yes Status: Acute Plan to address problem: Patient is full code. History Interval history: Patient is seen and examined Lab and medication reviewed Patient is still confused. Try to get out of the bed Hospitalist Physical - Constitutional Vitals: Temp Pulse Resp BP Pulse Ox 98.9 F 98 H 16 183/105 97 08/23/20 07:43 08/23/20 07:43 08/23/20 07:43 08/23/20 07:43 08/23/20 07:43 General appearance: Present: no acute distress, well-nourished Results - Labs CBC & Chem 7: 08/23/20 04:14 08/23/20 04:14 Labs: Laboratory Last Values WBC 10.1 K/mm3 (4.5-11.0) 08/23/20 04:14 RBC 3.66 M/mm3 (3.65-5.03) 08/23/20 04:14 Hgb 10.2 gm/dl (11.8-15.2) L 08/23/20 04:14 Hct 30.5 % (35.5-45.6) L 08/23/20 04:14 MCV 83 fl (84-94) L 08/23/20 04:14 MCH 28 pg (28-32) 08/23/20 04:14 MCHC 33 % (32-34) 08/23/20 04:14 RDW 15.8 % (13.2-15.2) H 08/23/20 04:14 Plt Count 314 K/mm3 (140-440) 08/23/20 04:14 Lymph % (Auto) 10.0 % (13.4-35.0) L 08/22/20 05:29 [place] % (Auto) 11.2 % (0.0-7.3) H 08/22/20 05:29 Eos % (Auto) 0.6 % (0.0-4.3) 08/22/20 05:29 Baso % (Auto) 0.3 % (0.0-1.8) 08/22/20 05:29 Lymph # (Auto) 1.0 K/mm3 (1.2-5.4) L 08/22/20 05:29 [place] # (Auto) 1.1 K/mm3 (0.0-0.8) H 08/22/20 05:29 Eos # (Auto) 0.1 K/mm3 (0.0-0.4) 08/22/20 05:29 Baso # (Auto) 0.0 K/mm3 (0.0-0.1) 08/22/20 05:29 Seg Neutrophils % 77.9 % (40.0-70.0) H 08/22/20 05:29 Seg Neutrophils # 7.7 K/mm3 (1.8-7.7) 08/22/20 05:29 PT 14.8 Sec. (12.2-14.9) 08/22/20 05:29 INR 1.11 (0.87-1.13) 08/22/20 05:29 Sodium 151 mmol/L (137-145) H 08/23/20 04:14 Potassium 5.5 mmol/L (3.6-5.0) H 08/23/20 04:14 Chloride 117.0 mmol/L (98-107) H 08/23/20 04:14 Carbon Dioxide 23 mmol/L (22-30) 08/23/20 04:14 Anion Gap 17 mmol/L 08/23/20 04:14 BUN 61 mg/dL (9-20) H 08/23/20 04:14 Creatinine 1.5 mg/dL (0.8-1.3) H 08/23/20 04:14 Estimated GFR 58 ml/min 08/23/20 04:14 BUN/Creatinine Ratio 41 % 08/23/20 04:14 Glucose 91 mg/dL (75-100) 08/23/20 04:14 Lactic Acid 0.40 mmol/L (0.7-2.0) L 08/22/20 00:29 Calcium 9.5 mg/dL (8.4-10.2) 08/23/20 04:14 Total Bilirubin 0.30 mg/dL (0.1-1.2) 08/21/20 21:15 AST 22 units/L (5-40) 08/21/20 21:15 ALT 23 units/L (7-56) 08/21/20 21:15 Alkaline Phosphatase 97 units/L (35-129) 08/21/20 21:15 Ammonia 50.0 umol/L (25-60) 08/21/20 21:15 Total Protein 7.2 g/dL (6.3-8.2) 08/21/20 21:15 Albumin 3.3 g/dL (3.9-5) L 08/21/20 21:15 Albumin/Globulin Ratio 0.8 % 08/21/20 21:15 Urine Color Yellow (Yellow) 08/22/20 Unknown Urine Turbidity Clear (Clear) 08/22/20 Unknown Urine pH 5.0 (5.0-7.0) 08/22/20 Unknown Ur Specific [place] 1.020 (1.003-1.030) 08/22/20 Unknown Urine Protein <15 mg/dl mg/dL (Negative) 08/22/20 Unknown Urine Glucose (UA) Negative mg/dL (Negative) 08/22/20 Unknown Urine Ketones Negative mg/dL (Negative) 08/22/20 Unknown Urine Nitrite Negative (Negative) 08/22/20 Unknown Ur Reducing Substances Not Reportable 08/22/20 Unknown Urine Ictotest Negative (Negative) 08/22/20 Unknown Urine Urobilinogen < 2.0 mg/dL (<2.0) 08/22/20 Unknown Ur Leukocyte Esterase Moderate (Negative) 08/22/20 Unknown Urine WBC (Auto) > 182.0 /HPF (0.0-6.0) H 08/22/20 Unknown Urine RBC (Auto) 5.0 /HPF (0.0-6.0) 08/22/20 Unknown U Epithel Cells (Auto) 1.0 /HPF (0-13.0) 08/22/20 Unknown Urine Bacteria (Auto) 1+ /HPF (Negative) 08/22/20 Unknown Urine WBC Clumps 2+ /HPF 08/22/20 Unknown Urine Mucus Few /HPF 08/22/20 Unknown Urine Yeast (Budding) 1+ /HPF 08/22/20 Unknown Urine Opiates Screen Negative 08/22/20 Unknown Urine Methadone Screen Negative 08/22/20 Unknown Ur Barbiturates Screen Negative 08/22/20 Unknown Ur Phencyclidine Scrn Negative 08/22/20 Unknown Ur Amphetamines Screen Negative 08/22/20 Unknown U Benzodiazepines Scrn Negative 08/22/20 Unknown Urine Cocaine Screen Negative 08/22/20 Unknown U Marijuana (THC) Screen Negative 08/22/20 Unknown Drugs of Abuse Note Disclamer 08/22/20 Unknown Plasma/Serum Alcohol < 0.01 % (0-0.07) 08/21/20 21:15 Microbiology: Microbiology 08/21/20 21:15 Peripheral/Venous Blood Culture - Preliminary NO GROWTH AFTER 24 HOURS 08/21/20 21:34 Peripheral/Venous Blood Culture - Preliminary NO GROWTH AFTER 24 HOURS Cohn/IV: Voiding Method Condom Catheter Active Medications - Current Medications Current Medications: Generic Name Dose Route Start Last Admin Trade Name Freq PRN Reason Stop Dose Admin Acetaminophen 650 mg 08/21/20 23:01 Acetaminophen 325 Mg Tab PO Q4H PRN Pain MILD(1-3)/Fever >100.5/DEVI Heparin Sodium (Porcine) 5,000 unit 08/22/20 06:00 08/23/20 05:17 Heparin 5,000 Unit/1 Ml Vial SUB-Q 5,000 unit Q8HR ELIOT Administration Ceftriaxone Sodium 2 gm in 100 mls @ 200 mls/hr 08/22/20 13:00 08/22/20 21:43 Rocephin/Ns 2 Gm/100 Ml IV Infused Q24HR ELIOT Infusion Protocol Dextrose 1,000 mls @ 75 mls/hr 08/23/20 08:00 D5w IV DIRECT ELIOT Magnesium Hydroxide 30 ml 08/21/20 23:01 Magnesium Hydroxide (Mom) Oral Liqd Udc PO Q4H PRN Constipation Morphine Sulfate 2 mg 08/21/20 23:01 08/23/20 02:11 Morphine 2 Mg/1 Ml Inj IV 2 mg Q4H PRN Administration Pain, Moderate (4-6) Ondansetron HCl 4 mg 08/21/20 23:01 08/23/20 02:19 Ondansetron 4 Mg/2 Ml Inj IV 4 mg Q8H PRN Administration Nausea And Vomiting Sodium Chloride 10 ml 08/22/20 10:00 08/22/20 21:58 Sodium Chloride 0.9% 10 Ml Flush Syringe IV 10 ml BID ELIOT Administration Sodium Chloride 10 ml 08/21/20 23:01 Sodium Chloride 0.9% 10 Ml Flush Syringe IV PRN PRN LINE FLUSH Sodium Polystyrene Sulfonate 30 gm 08/23/20 12:30 Sodium Polystyrene 15 Gm/60 Ml Oral Liqd PO 08/23/20 12:31 ONCE ONE Nutrition/Malnutrition Assess - Malnutrition Assessment Minimum of two criteria: No physical signs of malnutrition - Attestation Statement I have reviewed and agreed w/ Malnutrition eval & tx plan: No
[2020-08-23] MEDS ORDERED: SODIUM POLYSTYRENE 15 GM/60 ML ORAL LIQD PO ONE (12:30)
--- NOTE | 2020-08-23 12:36 | Progress Note ---
Assessment and Plan Cultures: 08/21/2020 blood culture: no growth 08/21/2020 urine culture: in process A/P: 60-year-old male with dementia, CVA, COPD, senior care resident was admitted to the hospital due to change in mental status: #UTI: UA with pyuria, follow-up urine cultures. #Chronic right lower extremity wound: Large chronic appearing wound with features suggestive of possible pyoderma gangrenosum. No acute cellulitis around it, mainstay is wound care. #DANIKA versus CKD: Renally dose antibiotics. Recs: -IV ceftriaxone, f/u urine culture and switch to PO abx tomorrow to complete 7 days -continue wound care to RLE -consider discharge on PO minocycyline 100 mg BID for immunomodulatory benefit f or pyoderma, duration about 2-3 months -may benefit from outpatient wound care Joselito Cates MD, FACP [facility] ([facility] O: [phone] F: [phone] Subjective Date of service: 08/23/20 Interval history: No fever. No new complaints. R leg wound is painful. Objective - Exam Narrative Exam: Physical Exam: Constitutional: Alert, cooperative. No acute distress Head, Ears, Nose: Normocephalic, atraumatic. External ears, nose normal Eyes: Conjunctivae/corneas clear. No icterus. No ptosis. Neck: Supple, no meningeal signs Cardiovascular: S1, S2 normal. Respiratory: Good air entry, clear to auscultation bilaterally GI: Soft, non-tender; bowel sounds normal. No peritoneal signs Musculoskeletal: RLE edema with a large wound that appears heavily colonized with some slough, wound suggestive of likely pyoderma Skin: No rash or abscess Hem/Lymphatic: No palpable cervical or supraclavicular nodes. No lymphangitis Psych: Flat affect Neurological: Awake, alert, answering questions - Constitutional Vitals: Vital Signs Temp Pulse Resp BP Pulse Ox 98.9 F 98 H 16 183/105 97 08/23/20 07:43 08/23/20 07:43 08/23/20 07:43 08/23/20 07:43 08/23/20 07:43 Temperature -Last 24 Hours Temperature 98.9 F Temperature 97.9 F Temperature 98.1 F Temperature 98.3 F Temperature 98.3 F - Labs CBC & Chem 7: 08/23/20 04:14 08/23/20 04:14 Labs: Abnormal lab results 08/23/20 08/23/20 Range/Units 04:14 04:14 Hgb 10.2 L (11.8-15.2) gm/dl Hct 30.5 L (35.5-45.6) % MCV 83 L (84-94) fl RDW 15.8 H (13.2-15.2) % Sodium 151 H (137-145) mmol/L Potassium 5.5 H (3.6-5.0) mmol/L Chloride 117.0 H (98-107) mmol/L BUN 61 H (9-20) mg/dL Creatinine 1.5 H (0.8-1.3) mg/dL
[2020-08-23] MEDS: hydrALAZINE 20 MG/1 ML INJ IV PRN (22:37)
[2020-08-23] MEDS: traZODone 50 MG TAB PO SCH (22:41)
[2020-08-24] MEDS: hydrALAZINE 20 MG/1 ML INJ IV PRN ×3 (04:46→23:53)
[2020-08-24] MEDS ORDERED: LORazepam 2 MG/ML VIAL IV ONE (05:21)
[2020-08-24] MEDS: LORazepam 2 MG/ML VIAL IV PRN ×3 (10:14→20:44)
--- NOTE | 2020-08-24 11:49 | Progress Note ---
Assessment and Plan Assessment and plan: 60-year-old -[place] male with known history of dementia, CVA, CHF, COPD and hypertension resident of a [facility]ci brought into the emergency room today with for evaluation of changes in mental status. He is said to be quite lethargic today and has not been getting out of bed. Patient normally goes out to smoke cigarettes but has been feeling quite weak today. Upon arrival of EMS patient was found to be hypotensive. He has a chronic foul- smelling ulcer on the right ankle. Patient unable to give very good history and most of the information was gotten from the ER staff. Work-up in the emergency room today, he was slightly hypotensive on arrival. CT scan of the head shows chronic small vessel disease. X-ray of the right ankle show soft tissue ulceration with diffuse soft tissue edema throughout the lower extremity, no acute fracture. Labs were significant for worsening BUN and creatinine. Patient has been admitted with chronic right lower extremity ulcer, sepsis, hypotension, acute on chronic renal failure. 08/22: ID consulted, awaiting wound management, may need Debridement. Sitter requested. Continue supportive care. 08/23/20 patient is seen and examined. Patient is confused. Patient is try to get out of the bed. Continue IV ceftriaxone. Urine culture. Wound care evaluation. Potassium is 5.5. Patient is given Kayexalate 30 g p.o. x1 dose. Recheck CBC BMP in the morning. Continue supportive care. 07/31/20 patient is seen and examined. Patient is confused. Patient is try to get out of bed. We have started on soft restraint and Ativan as needed. Co ntinue IV ceftriaxone. Tomorrow we will change the antibiotic to p.o. Augmentin. Follow urine culture. Wound care evaluation. Recheck BMP in the morning. Continue supportive care. 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 (1) Sepsis Current Visit: Yes Status: Acute Qualifiers: Sepsis type: sepsis due to unspecified organism Sepsis acute organ dysfunction status: with acute organ dysfunction Severe sepsis acute organ dysfunction type: encephalopathy Severe sepsis shock status: without septic shock Qualified Code(s): A41.9 - Sepsis, unspecified organism; R65.20 - Severe sepsis without septic shock; G93.40 - Encephalopathy, unspecified Plan to address problem: Possibly secondary to underlying chronic right ankle wound. Patient has been started on empiric IV antibiotics and IV fluid. (2) Ulcer of right ankle Current Visit: Yes Status: Acute Qualifiers: Non-pressure ulcer stage: unspecified non-pressure ulcer stage Qualified Code(s): L97.319 - Non-pressure chronic ulcer of right ankle with unspecified severity Plan to address problem: We will continue patient on empiric IV antibiotics. Consult placed to wound care team for evaluation and recommendation. We will consider infectious disease evaluation if needed. (3) Hypotension Current Visit: Yes Status: Acute Qualifiers: Hypotension type: unspecified hypotension type Qualified Code(s): I95.9 - Hypotension, unspecified Plan to address problem: Patient placed on gentle IV hydration. We will monitor vital signs closely. (4) Acute on chronic kidney failure Current Visit: Yes Status: Acute Qualifiers: Acute renal failure type: unspecified Chronic kidney disease stage: unspecified stage Qualified Code(s): N17.9 - Acute kidney failure, unspecified; N18.9 - Chronic kidney disease, unspecified Plan to address problem: Consult placed to nephrology for evaluation and recommendation. (5) DVT prophylaxis Current Visit: Yes Status: Acute Plan to address problem: Patient placed on subcutaneous heparin. (6) Full code status Current Visit: Yes Status: Acute Plan to address problem: Patient is full code. History Interval history: Patient is seen and examined Lab and medication reviewed Patient is still confused. Try to get out of the bed Hospitalist Physical - Constitutional Vitals: Temp Pulse Resp BP Pulse Ox 98.4 F 96 H 17 158/90 91 08/24/20 07:44 08/24/20 04:46 08/24/20 10:00 08/24/20 07:44 08/24/20 07:44 General appearance: Present: no acute distress, well-nourished - EENT Eyes: Present: PERRL, EOM intact ENT: hearing intact, clear oral mucosa, dentition normal - Neck Neck: Present: supple, normal ROM - Respiratory Respiratory effort: normal Respiratory: bilateral: diminished - Cardiovascular Rhythm: regular Heart Sounds: Present: S1 & S2 - Extremities Extremities: no ischemia Extremity abnormal: ulceration, erythema Peripheral Pulses: within normal limits - Abdominal General gastrointestinal: soft, non-tender, normal bowel sounds - Integumentary Integumentary: Present: clear, warm - Psychiatric Psychiatric: other (Agitated, confused) - Neurologic Neurologic: CNII-XII intact (Agitated, confused), other Results - Labs CBC & Chem 7: 08/23/20 04:14 08/23/20 04:14 Labs: Laboratory Last Values WBC 10.1 K/mm3 (4.5-11.0) 08/23/20 04:14 RBC 3.66 M/mm3 (3.65-5.03) 08/23/20 04:14 Hgb 10.2 gm/dl (11.8-15.2) L 08/23/20 04:14 Hct 30.5 % (35.5-45.6) L 08/23/20 04:14 MCV 83 fl (84-94) L 08/23/20 04:14 MCH 28 pg (28-32) 08/23/20 04:14 MCHC 33 % (32-34) 08/23/20 04:14 RDW 15.8 % (13.2-15.2) H 08/23/20 04:14 Plt Count 314 K/mm3 (140-440) 08/23/20 04:14 Lymph % (Auto) 10.0 % (13.4-35.0) L 08/22/20 05:29 [place] % (Auto) 11.2 % (0.0-7.3) H 08/22/20 05:29 Eos % (Auto) 0.6 % (0.0-4.3) 08/22/20 05:29 Baso % (Auto) 0.3 % (0.0-1.8) 08/22/20 05:29 Lymph # (Auto) 1.0 K/mm3 (1.2-5.4) L 08/22/20 05:29 [place] # (Auto) 1.1 K/mm3 (0.0-0.8) H 08/22/20 05:29 Eos # (Auto) 0.1 K/mm3 (0.0-0.4) 08/22/20 05:29 Baso # (Auto) 0.0 K/mm3 (0.0-0.1) 08/22/20 05:29 Seg Neutrophils % 77.9 % (40.0-70.0) H 08/22/20 05:29 Seg Neutrophils # 7.7 K/mm3 (1.8-7.7) 08/22/20 05:29 PT 14.8 Sec. (12.2-14.9) 08/22/20 05:29 INR 1.11 (0.87-1.13) 08/22/20 05:29 Sodium 151 mmol/L (137-145) H 08/23/20 04:14 Potassium 5.5 mmol/L (3.6-5.0) H 08/23/20 04:14 Chloride 117.0 mmol/L (98-107) H 08/23/20 04:14 Carbon Dioxide 23 mmol/L (22-30) 08/23/20 04:14 Anion Gap 17 mmol/L 08/23/20 04:14 BUN 61 mg/dL (9-20) H 08/23/20 04:14 Creatinine 1.5 mg/dL (0.8-1.3) H 08/23/20 04:14 Estimated GFR 58 ml/min 08/23/20 04:14 BUN/Creatinine Ratio 41 % 08/23/20 04:14 Glucose 91 mg/dL (75-100) 08/23/20 04:14 Lactic Acid 0.40 mmol/L (0.7-2.0) L 08/22/20 00:29 Calcium 9.5 mg/dL (8.4-10.2) 08/23/20 04:14 Total Bilirubin 0.30 mg/dL (0.1-1.2) 08/21/20 21:15 AST 22 units/L (5-40) 08/21/20 21:15 ALT 23 units/L (7-56) 08/21/20 21:15 Alkaline Phosphatase 97 units/L (35-129) 08/21/20 21:15 Ammonia 50.0 umol/L (25-60) 08/21/20 21:15 Total Protein 7.2 g/dL (6.3-8.2) 08/21/20 21:15 Albumin 3.3 g/dL (3.9-5) L 08/21/20 21:15 Albumin/Globulin Ratio 0.8 % 08/21/20 21:15 Urine Color Yellow (Yellow) 08/22/20 Unknown Urine Turbidity Clear (Clear) 08/22/20 Unknown Urine pH 5.0 (5.0-7.0) 08/22/20 Unknown Ur Specific [place] 1.020 (1.003-1.030) 08/22/20 Unknown Urine Protein <15 mg/dl mg/dL (Negative) 08/22/20 Unknown Urine Glucose (UA) Negative mg/dL (Negative) 08/22/20 Unknown Urine Ketones Negative mg/dL (Negative) 08/22/20 Unknown Urine Nitrite Negative (Negative) 08/22/20 Unknown Ur Reducing Substances Not Reportable 08/22/20 Unknown Urine Ictotest Negative (Negative) 08/22/20 Unknown Urine Urobilinogen < 2.0 mg/dL (<2.0) 08/22/20 Unknown Ur Leukocyte Esterase Moderate (Negative) 08/22/20 Unknown Urine WBC (Auto) > 182.0 /HPF (0.0-6.0) H 08/22/20 Unknown Urine RBC (Auto) 5.0 /HPF (0.0-6.0) 08/22/20 Unknown U Epithel Cells (Auto) 1.0 /HPF (0-13.0) 08/22/20 Unknown Urine Bacteria (Auto) 1+ /HPF (Negative) 08/22/20 Unknown Urine WBC Clumps 2+ /HPF 08/22/20 Unknown Urine Mucus Few /HPF 08/22/20 Unknown Urine Yeast (Budding) 1+ /HPF 08/22/20 Unknown Urine Opiates Screen Negative 08/22/20 Unknown Urine Methadone Screen Negative 08/22/20 Unknown Ur Barbiturates Screen Negative 08/22/20 Unknown Ur Phencyclidine Scrn Negative 08/22/20 Unknown Ur Amphetamines Screen Negative 08/22/20 Unknown U Benzodiazepines Scrn Negative 08/22/20 Unknown Urine Cocaine Screen Negative 08/22/20 Unknown U Marijuana (THC) Screen Negative 08/22/20 Unknown Drugs of Abuse Note Disclamer 08/22/20 Unknown Plasma/Serum Alcohol < 0.01 % (0-0.07) 08/21/20 21:15 Microbiology: Microbiology 08/21/20 21:15 Peripheral/Venous Blood Culture - Preliminary NO GROWTH AFTER 48 HOURS 08/21/20 21:34 Peripheral/Venous Blood Culture - Preliminary NO GROWTH AFTER 48 HOURS Cohn/IV: Voiding Method Condom Catheter Active Medications - Current Medications Current Medications: Generic Name Dose Route Start Last Admin Trade Name Freq PRN Reason Stop Dose Admin Heparin Sodium (Porcine) 5,000 unit 08/24/20 14:00 Heparin 5,000 Unit/1 Ml Vial SUB-Q Q8HR ELIOT Hydralazine HCl 5 mg 08/23/20 21:39 08/24/20 04:46 Hydralazine 20 Mg/1 Ml Inj IV 5 mg Q4HR PRN Administration Hypertension Ceftriaxone Sodium 2 gm in 100 mls @ 200 mls/hr 08/25/20 10:00 Rocephin/Ns 2 Gm/100 Ml IV 08/29/20 12:59 Q24HR ELIOT Protocol Dextrose 1,000 mls @ 75 mls/hr 08/24/20 11:00 D5w IV DIRECT ELIOT Lorazepam 1 mg 08/24/20 08:01 08/24/20 10:14 Lorazepam 2 Mg/Ml Vial IV 1 mg Q4H PRN Administration Agitation Trazodone HCl 50 mg 08/23/20 22:00 08/23/20 22:41 Trazodone 50 Mg Tab PO 50 mg QHS ELIOT Administration Nutrition/Malnutrition Assess - Malnutrition Assessment Minimum of two criteria: No
--- NOTE | 2020-08-24 13:13 | Progress Note ---
Assessment and Plan 1. Acute kidney injury: Vasomotor DANIKA in the setting of hypotension / shock. Renal US negative. Urine studies ordered. Baseline renal function unknown. Continue IV fluids. Monitor renal function. Creatinine level is better. Avoid nephrotoxic agents. Meds dosage based on GFR. 2. FEN: Hypernatremia, continue IV D5W, monitor. Hyperkalemia, Kayexalate, monitor. Monitor lytes and volume status. 3. Hypotension: BP is better. 4. UTI: Abx. Followed by ID. 5. Chronic right lower extremity wound: Wound care. 6. Anemia, POA: Monitor. Subjective: Patient was seen and examined at the bedside. Examination: General appearance: well-developed, appears stated age, no distress, restrains HEENT: ATNC, MATILDE Neck: trachea midline Respiratory: Clear to Auscultation Heart: regular, S1S2, no murmur Gastrointestinal: soft, normoactive bowel sounds, not tender, not distended Integumentary: R leg covered with dressing, LE stasis changes noted Neurologic: lethargic, not following any command Ext: R leg slightly warm to touch Subjective Date of service: 08/24/20 Objective - Vital Signs Vital signs: Vital Signs - 12hr 08/24/20 08/24/20 08/24/20 04:19 04:44 04:46 Temperature 98.2 F Pulse Rate 96 H 96 H Respiratory 18 17 Rate Respiratory Rate [Right Lower Leg] Blood Pressure 185/120 177/105 Blood Pressure 177/105 [Left] O2 Sat by Pulse Oximetry 08/24/20 08/24/20 07:44 10:00 Temperature 98.4 F Pulse Rate Respiratory 18 Rate Respiratory 17 Rate [Right Lower Leg] Blood Pressure 158/90 Blood Pressure [Left] O2 Sat by Pulse 91 Oximetry - Lab 08/23/20 04:14 08/24/20 14:05 Most recent lab results Calcium 9.5 mg/dL (8.4-10.2) 08/23/20 04:14 Medications & Allergies - Medications Allergies/Adverse Reactions: Allergies No Known Allergies Allergy (Verified 08/21/20 21:39) Active Medications: Generic Name Dose Route Start Last Admin Trade Name Freq PRN Reason Stop Dose Admin Heparin Sodium (Porcine) 5,000 unit 08/24/20 14:00 Heparin 5,000 Unit/1 Ml Vial SUB-Q Q8HR [facility] Hydralazine HCl 5 mg 08/23/20 21:39 08/24/20 04:46 Hydralazine 20 Mg/1 Ml Inj IV 5 mg Q4HR PRN Administration Hypertension Ceftriaxone Sodium 2 gm in 100 mls @ 200 mls/hr 08/25/20 10:00 Rocephin/Ns 2 Gm/100 Ml IV 08/29/20 12:59 Q24HR ELIOT Protocol Dextrose 1,000 mls @ 75 mls/hr 08/24/20 11:00 D5w IV DIRECT ELIOT Lorazepam 1 mg 08/24/20 08:01 08/24/20 10:14 Lorazepam 2 Mg/Ml Vial IV 1 mg Q4H PRN Administration Agitation Trazodone HCl 50 mg 08/23/20 22:00 08/23/20 22:41 Trazodone 50 Mg Tab PO 50 mg QHS ELIOT Administration
[2020-08-24] MEDS: DEXTROSE 5% IN WATER 1,000 ML IV SCH (13:45)
[2020-08-24] MEDS: HEPARIN 5,000 UNIT/1 ML VIAL SUB-Q SCH ×2 (14:10→22:00)
[2020-08-24 14:36] LABS: Calcium 9.9 mg/dL (8.4-10.2)
[2020-08-24] MEDS ORDERED: SODIUM POLYSTYRENE 15 GM/60 ML ORAL LIQD PO ONE (20:26)
[2020-08-24] MEDS: traZODone 50 MG TAB PO SCH (23:28)
[2020-08-25] MEDS: DEXTROSE 5% IN WATER 1,000 ML IV SCH ×3 (02:27→22:03)
[2020-08-25] MEDS: HEPARIN 5,000 UNIT/1 ML VIAL SUB-Q SCH ×3 (06:34→21:48)
--- NOTE | 2020-08-25 09:10 | Progress Note ---
Assessment and Plan 1. Acute kidney injury: Vasomotor DANIKA in the setting of hypotension / shock. Renal US negative. Urine studies ordered. Baseline renal function unknown. Continue IV fluids. Monitor renal function. Creatinine level is better. Avoid nephrotoxic agents. Meds dosage based on GFR. 2. FEN: Hypernatremia, continue IV D5W, monitor. Hyperkalemia, Kayexalate, monitor. Monitor lytes and volume status. 3. Hypotension: BP is better. 4. UTI: Abx. Followed by ID. 5. Chronic right lower extremity wound: Wound care. 6. Anemia, POA: Monitor. Subjective: Patient was seen and examined at the bedside. Examination: General appearance: well-developed, appears stated age, no distress, restrains HEENT: ATNC, MATILDE Neck: trachea midline Respiratory: Clear to Auscultation Heart: regular, S1S2, no murmur Gastrointestinal: soft, normoactive bowel sounds, not tender, not distended Integumentary: R leg covered with dressing, LE stasis changes noted Neurologic: lethargic, not following any command Ext: R leg slightly warm to touch Subjective Date of service: 08/25/20 Objective - Vital Signs Vital signs: Vital Signs - 12hr 08/24/20 08/24/20 08/25/20 23:44 23:53 05:12 Temperature 98.6 F Pulse Rate 101 H Respiratory 20 Rate Blood Pressure 161/108 161/108 157/106 O2 Sat by Pulse Oximetry 08/25/20 08/25/20 05:13 07:23 Temperature 98.5 F 98.7 F Pulse Rate 98 H 104 H Respiratory 20 16 Rate Blood Pressure 140/88 O2 Sat by Pulse 99 99 Oximetry - Lab 08/23/20 04:14 08/25/20 09:18 Most recent lab results Calcium 9.9 mg/dL (8.4-10.2) 08/24/20 14:05 Medications & Allergies - Medications Allergies/Adverse Reactions: Allergies No Known Allergies Allergy (Verified 08/21/20 21:39) Active Medications: Generic Name Dose Route Start Last Admin Trade Name Freq PRN Reason Stop Dose Admin Divalproex Sodium 250 mg 08/25/20 10:[address] 250 Mg Tab PO BID [facility] Gabapentin 100 mg 08/25/20 10:00 Gabapentin 100 Mg Cap PO Q8H ELIOT Heparin Sodium (Porcine) 5,000 unit 08/24/20 14:00 08/25/20 06:34 Heparin 5,000 Unit/1 Ml Vial SUB-Q 5,000 unit Q8HR ELIOT Administration Hydralazine HCl 5 mg 08/23/20 21:39 08/24/20 23:53 Hydralazine 20 Mg/1 Ml Inj IV 5 mg Q4HR PRN Administration Hypertension Ceftriaxone Sodium 2 gm in 100 mls @ 200 mls/hr 08/25/20 10:00 Rocephin/Ns 2 Gm/100 Ml IV 08/29/20 12:59 Q24HR ELIOT Protocol Dextrose 1,000 mls @ 75 mls/hr 08/24/20 11:00 08/25/20 02:27 D5w IV 75 mls/hr DIRECT ELIOT Administration Lorazepam 1 mg 08/24/20 08:01 08/24/20 20:44 Lorazepam 2 Mg/Ml Vial IV 1 mg Q4H PRN Administration Agitation Pentoxifylline 400 mg 08/25/20 10:00 Pentoxifylline Er 400 Mg Tab PO Q12HR ELIOT Sertraline HCl 50 mg 08/25/20 10:00 Sertraline 50 Mg Tab PO QDAY ELIOT Sodium Polystyrene Sulfonate 30 gm 08/25/20 09:00 Sodium Polystyrene 15 Gm/60 Ml Oral Liqd PO 08/25/20 09:01 ONCE ONE Trazodone HCl 50 mg 08/23/20 22:00 08/24/20 23:28 Trazodone 50 Mg Tab PO 50 mg QHS ELIOT Administration
--- NOTE | 2020-08-25 09:11 | Progress Note ---
Assessment and Plan Assessment and plan: 60-year-old -[place] male with known history of dementia, CVA, CHF, COPD and hypertension resident of a alf brought into the emergency room today with for evaluation of changes in mental status. He is said to be quite lethargic today and has not been getting out of bed. Patient normally goes out to smoke cigarettes but has been feeling quite weak today. Upon arrival of EMS patient was found to be hypotensive. He has a chronic foul- smelling ulcer on the right ankle. Patient unable to give very good history and most of the information was gotten from the ER staff. Work-up in the emergency room today, he was slightly hypotensive on arrival. CT scan of the head shows chronic small vessel disease. X-ray of the right ankle show soft tissue ulceration with diffuse soft tissue edema throughout the lower extremity, no acute fracture. Labs were significant for worsening BUN and creatinine. Patient has been admitted with chronic right lower extremity ulcer, sepsis, hypotension, acute on chronic renal failure. 08/22: ID consulted, awaiting wound management, may need Debridement. Sitter requested. Continue supportive care. 08/23/20 patient is seen and examined. Patient is confused. Patient is try to get out of the bed. Continue IV ceftriaxone. Urine culture. Wound care evaluation. Potassium is 5.5. Patient is given Kayexalate 30 g p.o. x1 dose. Recheck CBC BMP in the morning. Continue supportive care. 08/24/20 patient is seen and examined. Patient is confused. Patient is try to get out of bed. We have started on soft restraint and Ativan as needed. Co ntinue IV ceftriaxone. Tomorrow we will change the antibiotic to p.o. Augmentin. Follow urine culture. Wound care evaluation. Recheck BMP in the morning. Continue supportive care. 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 08/25: Continue supportive care, Still with elevated Potassium and Na. Will give additional kayxalate and also Monitor. Will restart some home medications, patient is normally on Torsemide and BIDIL, coreg among others, will restart except Nephrotoxic meds, renal function showing some improvement. Continue D5W due to the noted HYPERNATREMIA Continue wound care, will obtain vascular evaluation prior to discharge ID following anticipate discharge in a.m. if no further input by vascular. I restarted some of his home psych medications anticipate that this will help improve his mentation so we can take him off restraints. (1) Sepsis Current Visit: Yes Status: Acute Qualifiers: Sepsis type: sepsis due to unspecified organism Sepsis acute organ dysfunction status: with acute organ dysfunction Severe sepsis acute organ dysfunction type: encephalopathy Severe sepsis shock status: without septic shock Qualified Code(s): A41.9 - Sepsis, unspecified organism; R65.20 - Severe sepsis without septic shock; G93.40 - Encephalopathy, unspecified Plan to address problem: Possibly secondary to underlying chronic right ankle wound. Patient has been started on empiric IV antibiotics and IV fluid. (2) Ulcer of right ankle Current Visit: Yes Status: Acute Qualifiers: Non-pressure ulcer stage: unspecified non-pressure ulcer stage Qualified Code(s): L97.319 - Non-pressure chronic ulcer of right ankle with unspecified severity Plan to address problem: We will continue patient on empiric IV antibiotics. Consult placed to wound care team for evaluation and recommendation. We will consider infectious disease evaluation if needed. (3) Hypotension Current Visit: Yes Status: Acute Qualifiers: Hypotension type: unspecified hypotension type Qualified Code(s): I95.9 - Hypotension, unspecified Plan to address problem: Patient placed on gentle IV hydration. We will monitor vital signs closely. (4) Acute on chronic kidney failure secondary to ATN Current Visit: Yes Status: Acute Qualifiers: Acute renal failure type: unspecified Chronic kidney disease stage: unspecified stage Qualified Code(s): N17.9 - Acute kidney failure, unspecified; N18.9 - Chronic kidney disease, unspecified Plan to address problem: Consult placed to nephrology for evaluation and recommendation. (5) Hypernatermia (6)Hyperkalemia (7) DVT prophylaxis Current Visit: Yes Status: Acute Plan to address problem: Patient placed on subcutaneous heparin. (8) Full code status Current Visit: Yes Status: Acute Plan to address problem: Patient is full code. History Interval history: Patient seen and examined confused states that he is tied down and they want to kill him. Otherwise no other reported by nursing staff Hospitalist Physical - Physical exam Narrative exam: General appearance: Present: no acute distress, well-nourished otherwise chronically ill-appearing - EENT Eyes: Present: PERRL, EOM intact. Absent: scleral icterus ENT: hearing intact, clear oral mucosa, dentition normal - Neck Neck: Present: supple, normal ROM - Respiratory Respiratory effort: normal Respiratory: bilateral: CTA - Cardiovascular Rhythm: regular Heart Sounds: Present: S1 & S2. Absent: gallop, systolic murmur, diastolic murmur - Extremities Extremities: no ischemia, pulses intact, pulses symmetrical, Full ROM Extremity abnormal: edema (1+ bilatera lower extremity edema.), ulceration (Dressing over right ankle ulcer.) Peripheral Pulses: within normal limits - Abdominal General gastrointestinal: Present: soft, non-tender, non-distended, normal bowel sounds. Absent: mass - Integumentary Integumentary: Present: clear, warm, dry. Absent: rash - Musculoskeletal Musculoskeletal: strength equal bilaterally - Psychiatric Psychiatric: a confused, lacks insight into his clinical condition - Neurologic Neurologic: CNII-XII intact, no focal deficits, moves all extremities - Constitutional Vitals: Temp Pulse Resp BP Pulse Ox 98.7 F 104 H 16 140/88 99 08/25/20 07:23 08/25/20 07:23 08/25/20 07:23 08/25/20 07:23 08/25/20 07:23 General appearance: Present: no acute distress, well-nourished Results - Labs CBC & Chem 7: 08/23/20 04:14 08/24/20 14:05 Labs: Laboratory Last Values WBC 10.1 K/mm3 (4.5-11.0) 08/23/20 04:14 RBC 3.66 M/mm3 (3.65-5.03) 08/23/20 04:14 Hgb 10.2 gm/dl (11.8-15.2) L 08/23/20 04:14 Hct 30.5 % (35.5-45.6) L 08/23/20 04:14 MCV 83 fl (84-94) L 08/23/20 04:14 MCH 28 pg (28-32) 08/23/20 04:14 MCHC 33 % (32-34) 08/23/20 04:14 RDW 15.8 % (13.2-15.2) H 08/23/20 04:14 Plt Count 314 K/mm3 (140-440) 08/23/20 04:14 Lymph % (Auto) 10.0 % (13.4-35.0) L 08/22/20 05:29 [place] % (Auto) 11.2 % (0.0-7.3) H 08/22/20 05:29 Eos % (Auto) 0.6 % (0.0-4.3) 08/22/20 05:29 Baso % (Auto) 0.3 % (0.0-1.8) 08/22/20 05:29 Lymph # (Auto) 1.0 K/mm3 (1.2-5.4) L 08/22/20 05:29 [place] # (Auto) 1.1 K/mm3 (0.0-0.8) H 08/22/20 05:29 Eos # (Auto) 0.1 K/mm3 (0.0-0.4) 08/22/20 05:29 Baso # (Auto) 0.0 K/mm3 (0.0-0.1) 08/22/20 05:29 Seg Neutrophils % 77.9 % (40.0-70.0) H 08/22/20 05:29 Seg Neutrophils # 7.7 K/mm3 (1.8-7.7) 08/22/20 05:29 PT 14.8 Sec. (12.2-14.9) 08/22/20 05:29 INR 1.11 (0.87-1.13) 08/22/20 05:29 Sodium 158 mmol/L (137-145) H 08/24/20 14:05 Potassium 5.2 mmol/L (3.6-5.0) H 08/24/20 14:05 Chloride 122.6 mmol/L (98-107) H 08/24/20 14:05 Carbon Dioxide 24 mmol/L (22-30) 08/24/20 14:05 Anion Gap 17 mmol/L 08/24/20 14:05 BUN 43 mg/dL (9-20) H 08/24/20 14:05 Creatinine 1.7 mg/dL (0.8-1.3) H 08/24/20 14:05 Estimated GFR 50 ml/min 08/24/20 14:05 BUN/Creatinine Ratio 25 % 08/24/20 14:05 Glucose 91 mg/dL (75-100) 08/24/20 14:05 Lactic Acid 0.40 mmol/L (0.7-2.0) L 08/22/20 00:29 Calcium 9.9 mg/dL (8.4-10.2) 08/24/20 14:05 Total Bilirubin 0.30 mg/dL (0.1-1.2) 08/21/20 21:15 AST 22 units/L (5-40) 08/21/20 21:15 ALT 23 units/L (7-56) 08/21/20 21:15 Alkaline Phosphatase 97 units/L (35-129) 08/21/20 21:15 Ammonia 50.0 umol/L (25-60) 08/21/20 21:15 Total Protein 7.2 g/dL (6.3-8.2) 08/21/20 21:15 Albumin 3.3 g/dL (3.9-5) L 08/21/20 21:15 Albumin/Globulin Ratio 0.8 % 08/21/20 21:15 Urine Color Yellow (Yellow) 08/22/20 Unknown Urine Turbidity Clear (Clear) 08/22/20 Unknown Urine pH 5.0 (5.0-7.0) 08/22/20 Unknown Ur Specific [place] 1.020 (1.003-1.030) 08/22/20 Unknown Urine Protein <15 mg/dl mg/dL (Negative) 08/22/20 Unknown Urine Glucose (UA) Negative mg/dL (Negative) 08/22/20 Unknown Urine Ketones Negative mg/dL (Negative) 08/22/20 Unknown Urine Nitrite Negative (Negative) 08/22/20 Unknown Ur Reducing Substances Not Reportable 08/22/20 Unknown Urine Ictotest Negative (Negative) 08/22/20 Unknown Urine Urobilinogen < 2.0 mg/dL (<2.0) 08/22/20 Unknown Ur Leukocyte Esterase Moderate (Negative) 08/22/20 Unknown Urine WBC (Auto) > 182.0 /HPF (0.0-6.0) H 08/22/20 Unknown Urine RBC (Auto) 5.0 /HPF (0.0-6.0) 08/22/20 Unknown U Epithel Cells (Auto) 1.0 /HPF (0-13.0) 08/22/20 Unknown Urine Bacteria (Auto) 1+ /HPF (Negative) 08/22/20 Unknown Urine WBC Clumps 2+ /HPF 08/22/20 Unknown Urine Mucus Few /HPF 08/22/20 Unknown Urine Yeast (Budding) 1+ /HPF 08/22/20 Unknown Urine Opiates Screen Negative 08/22/20 Unknown Urine Methadone Screen Negative 08/22/20 Unknown Ur Barbiturates Screen Negative 08/22/20 Unknown Ur Phencyclidine Scrn Negative 08/22/20 Unknown Ur Amphetamines Screen Negative 08/22/20 Unknown U Benzodiazepines Scrn Negative 08/22/20 Unknown Urine Cocaine Screen Negative 08/22/20 Unknown U Marijuana (THC) Screen Negative 08/22/20 Unknown Drugs of Abuse Note Disclamer 08/22/20 Unknown Plasma/Serum Alcohol < 0.01 % (0-0.07) 08/21/20 21:15 Coronavirus (PCR) Negative (Negative) 08/22/20 Unknown Microbiology: Microbiology 08/21/20 21:15 Peripheral/Venous Blood Culture - Preliminary NO GROWTH AFTER 72 HOURS 08/21/20 21:34 Peripheral/Venous Blood Culture - Preliminary NO GROWTH AFTER 72 HOURS 08/23/20 Unknown Urine,Clean Catch Urine Culture - Preliminary NO GROWTH AFTER 24 HOURS Cohn/IV: Voiding Method Condom Catheter Active Medications - Current Medications Current Medications: Generic Name Dose Route Start Last Admin Trade Name Freq PRN Reason Stop Dose Admin Heparin Sodium (Porcine) 5,000 unit 08/24/20 14:00 08/25/20 06:34 Heparin 5,000 Unit/1 Ml Vial SUB-Q 5,000 unit Q8HR ELIOT Administration Hydralazine HCl 5 mg 08/23/20 21:39 08/24/20 23:53 Hydralazine 20 Mg/1 Ml Inj IV 5 mg Q4HR PRN Administration Hypertension Ceftriaxone Sodium 2 gm in 100 mls @ 200 mls/hr 08/25/20 10:00 Rocephin/Ns 2 Gm/100 Ml IV 08/29/20 12:59 Q24HR ELIOT Protocol Dextrose 1,000 mls @ 75 mls/hr 08/24/20 11:00 08/25/20 02:27 D5w IV 75 mls/hr DIRECT ELIOT Administration Lorazepam 1 mg 08/24/20 08:01 08/24/20 20:44 Lorazepam 2 Mg/Ml Vial IV 1 mg Q4H PRN Administration Agitation Trazodone HCl 50 mg 08/23/20 22:00 08/24/20 23:28 Trazodone 50 Mg Tab PO 50 mg QHS ELIOT Administration
[2020-08-25] MEDS ORDERED: SODIUM POLYSTYRENE 15 GM/60 ML ORAL LIQD PO ONE (10:00)
[2020-08-25] MEDS: LORazepam 2 MG/ML VIAL IV PRN (10:12)
[2020-08-25] MEDS: GABAPENTIN 100 MG CAP PO SCH ×2 (10:13→19:20)
[2020-08-25] MEDS: SERTRALINE 50 MG TAB PO SCH (10:13)
[2020-08-25] MEDS: carvediloL 25 MG TAB PO SCH ×2 (10:13→21:46)
[2020-08-25] MEDS: cefTRIAXone/NS 2 GM/100 ML 2 GM/100 ML BAG IV SCH (10:13)
[2020-08-25] MEDS: PENTOXIFYLLINE ER 400 MG TAB PO SCH ×2 (10:26→21:46)
[2020-08-25] MEDS: DIVALPROEX DR 250 MG TAB PO SCH ×2 (10:26→21:46)
[2020-08-25] MEDS: ISOSORB DINIT/HYDRALAZINE 20-37.5MG TAB PO SCH ×2 (13:18→21:45)
--- NOTE | 2020-08-25 15:19 | Event Note ---
Date: 08/25/20 Reviewed chart. Ordered venous study to exclude acute venous occlusion, but suspect chronic venous insuffiency with ulcer. Ordered arterial duplex with ESDRAS to evaluate for mixed disease, as based on images this appears to be a predominately venous ulcer with infection. Will see patient tomorrow after tests have resulted.
[2020-08-25] MEDS: hydrALAZINE 20 MG/1 ML INJ IV PRN (17:11)
[2020-08-25] MEDS: traZODone 50 MG TAB PO SCH (21:45)
[2020-08-26] MEDS: ISOSORB DINIT/HYDRALAZINE 20-37.5MG TAB PO SCH ×3 (05:28→22:06)
[2020-08-26] MEDS: HEPARIN 5,000 UNIT/1 ML VIAL SUB-Q SCH ×3 (06:00→22:07)
[2020-08-26] MEDS: GABAPENTIN 100 MG CAP PO SCH ×3 (07:46→18:57)
[2020-08-26 08:27] LABS: Calcium 9.4 mg/dL (8.4-10.2)
--- NOTE | 2020-08-26 09:57 | Progress Note ---
Assessment and Plan 1. Acute kidney injury: Vasomotor DANIKA in the setting of hypotension / shock. Renal US negative. Urine studies ordered. Baseline renal function unknown. Continue IV fluids. Monitor renal function. Creatinine level fluctuates. Avoid nephrotoxic agents. Meds dosage based on GFR. 2. FEN: Hypernatremia, continue IV D5W, monitor. Hyperkalemia, Kayexalate, monitor. Monitor lytes and volume status. 3. Hypotension: BP is better. 4. UTI: Abx. Followed by ID. 5. Chronic right lower extremity wound: Wound care. 6. Anemia, POA: Monitor. Subjective: Patient was seen and examined at the bedside. Examination: General appearance: well-developed, appears stated age, no distress HEENT: ATNC, MATILDE Neck: trachea midline Respiratory: Clear to Auscultation Heart: regular, S1S2, no murmur Gastrointestinal: soft, normoactive bowel sounds, not tender, not distended Integumentary: R leg covered with dressing, LE stasis changes noted Neurologic: alert, able to move extremities, confused Ext: no edema Subjective Date of service: 08/26/20 Objective - Vital Signs Vital signs: Vital Signs - 12hr 08/25/20 08/25/20 08/26/20 22:00 23:59 00:46 Temperature 98.1 F Pulse Rate 91 H Respiratory 17 18 17 Rate Respiratory 17 Rate [Right Lower Leg] Blood Pressure 90/58 Blood Pressure 108/71 [Right] O2 Sat by Pulse 94 Oximetry 08/26/20 08/26/20 08/26/20 04:34 05:28 07:49 Temperature 98.3 F 98.8 F Pulse Rate 95 H 99 H Respiratory 18 18 Rate Respiratory Rate [Right Lower Leg] Blood Pressure 127/85 121/89 106/75 Blood Pressure [Right] O2 Sat by Pulse 93 Oximetry - Lab 08/23/20 04:14 08/26/20 07:35 Most recent lab results Calcium 9.4 mg/dL (8.4-10.2) 08/26/20 07:35 Medications & Allergies - Medications Allergies/Adverse Reactions: Allergies No Known Allergies Allergy (Verified 08/21/20 21:39) Active Medications: Generic Name Dose Route Start Last Admin Trade Name Freq PRN Reason Stop Dose Admin Carvedilol 25 mg 08/25/20 10:00 08/25/20 21:46 Carvedilol 25 Mg Tab PO 25 mg BID ELIOT Administration Divalproex Sodium 250 mg 08/25/20 10:00 08/25/20 21:[address] 250 Mg Tab PO 250 mg BID ELIOT Administration Gabapentin 100 mg 08/25/20 10:00 08/26/20 07:46 Gabapentin 100 Mg Cap PO 100 mg Q8H ELIOT Administration Heparin Sodium (Porcine) 5,000 unit 08/24/20 14:00 08/26/20 06:00 Heparin 5,000 Unit/1 Ml Vial SUB-Q 5,000 unit Q8HR ELIOT Administration Hydralazine HCl 5 mg 08/23/20 21:39 08/25/20 17:11 Hydralazine 20 Mg/1 Ml Inj IV 5 mg Q4HR PRN Administration Hypertension Ceftriaxone Sodium 2 gm in 100 mls @ 200 mls/hr 08/25/20 10:00 08/25/20 10:13 Rocephin/Ns 2 Gm/100 Ml IV 08/29/20 12:59 200 mls/hr Q24HR ELIOT Administration Protocol Dextrose 1,000 mls @ 75 mls/hr 08/24/20 11:00 08/25/20 22:03 D5w IV 75 mls/hr DIRECT ELIOT Administration Isosorbide Dinitrate/Hydralazine 1 each 08/25/20 14:00 08/26/20 05:28 Isosorb Dinit/Hydralazine 20-37.5mg Tab PO 1 each Q8HR ELIOT Administration Lorazepam 1 mg 08/24/20 08:01 08/25/20 10:12 Lorazepam 2 Mg/Ml Vial IV 1 mg Q4H PRN Administration Agitation Pentoxifylline 400 mg 08/25/20 10:00 08/25/20 21:46 Pentoxifylline Er 400 Mg Tab PO 400 mg Q12HR ELIOT Administration Sertraline HCl 50 mg 08/25/20 10:00 08/25/20 10:13 Sertraline 50 Mg Tab PO 50 mg QDAY ELIOT Administration Trazodone HCl 50 mg 08/23/20 22:00 08/25/20 21:45 Trazodone 50 Mg Tab PO 50 mg QHS ELIOT Administration
--- NOTE | 2020-08-26 10:28 | Vascular Lab Report ---
DUPLEX DOPPLER LOWER EXTREMITY VEINS, BILATERAL INDICATION: Right lower extremity nonhealing wound, swelling. TECHNIQUE: Duplex doppler imaging was performed through the veins of both lower extremities using ve nous compression and other maneuvers. COMPARISON: No relevant prior imaging study available. FINDINGS: Right Common femoral vein: Negative. Right Superficial femoral vein: Negative. Right Popliteal vein: Negative. Right Calf veins: Negative. Left Common femoral vein: Negative. Left Superficial femoral vein: Negative. Left Popliteal vein: Negative. Left Calf veins: Negative. Additional findings: None. IMPRESSION: No sonographic evidence for DVT in either lower extremity. Signer Name: Hank Urrutia Jr, MD Signed: 08/26/2020 10:24 AM Workstation Name: [id number]
[2020-08-26] MEDS: DIVALPROEX DR 250 MG TAB PO SCH ×2 (10:30→22:08)
[2020-08-26] MEDS: PENTOXIFYLLINE ER 400 MG TAB PO SCH ×2 (10:30→22:08)
[2020-08-26] MEDS: cefTRIAXone/NS 2 GM/100 ML 2 GM/100 ML BAG IV SCH (10:30)
[2020-08-26] MEDS: SERTRALINE 50 MG TAB PO SCH (10:30)
--- NOTE | 2020-08-26 10:48 | Vascular Lab Report ---
DUPLEX DOPPLER LOWER EXTREMITY ARTERIAL, BILATERAL VL ESDRAS EVALUATION INDICATION: Right lower extremity nonhealing wound. TECHNIQUE: Arterial duplex examination of both lower extremities performed using B-mode, color flow and spectral Doppler assessment. FINDINGS: RIGHT: Common Femoral Artery: PSV 79 cm/sec. Triphasic waveform. Proximal SFA: PSV 80 cm/sec. Triphasic waveform. Mid SFA: PSV 95 cm/sec. Triphasic waveform. Distal SFA: PSV 71 cm/sec. Triphasic waveform. Popliteal artery: PSV 66 cm/sec. Triphasic waveform. Posterior tibial artery: PSV 62 cm/sec. Triphasic waveform. Dorsalis Pedis Artery: PSV 29 cm/sec. Biphasic waveform. LEFT: Common Femoral Artery: PSV 75 cm/sec. Triphasic waveform. Proximal SFA: PSV 78 cm/sec. Triphasic waveform. Mid SFA: PSV 83 cm/sec. Triphasic waveform. Distal SFA: PSV 74 cm/sec. Triphasic waveform. Popliteal artery: PSV 43 cm/sec. Triphasic waveform. Posterior tibial artery: PSV 67 cm/sec. Triphasic waveform. Dorsalis Pedis Artery: PSV 35 cm/sec. Triphasic waveform. Right ESDRAS: 1.08. Left ESDRAS: 1.11. IMPRESSION: No significant lower extremity peripheral artery disease. Ankle-Brachial Index (ESDRAS): * Calcified arteries > 1.4 * Normal = 0.9-1.4 * Mild PAD = 0.7-0.89 * Moderate PAD = 0.51-0.69 * Severe PAD < 0.5 Doppler Waveform: * Triphasic is normal. * Biphasic is abnormal if clear transition from triphasic signal along vascular tree. * Monophasic is abnormal. Signer Name: Hank Urrutia Jr, MD Signed: 08/26/2020 10:44 AM Workstation Name: [id number]
[2020-08-26] MEDS ORDERED: SODIUM POLYSTYRENE 15 GM/60 ML ORAL LIQD PO SCH (11:00)
[2020-08-26] MEDS: LORazepam 2 MG/ML VIAL IV PRN (11:48)
[2020-08-26] MEDS: carvediloL 25 MG TAB PO SCH ×2 (12:19→22:10)
--- NOTE | 2020-08-26 12:27 | Progress Note ---
Assessment and Plan Assessment and plan: 60-year-old -Greek male with known history of dementia, CVA, CHF, COPD and hypertension resident of a retirement brought into the emergency room today with for evaluation of changes in mental status. He is said to be quite lethargic today and has not been getting out of bed. Patient normally goes out to smoke cigarettes but has been feeling quite weak today. Upon arrival of EMS patient was found to be hypotensive. He has a chronic foul- smelling ulcer on the right ankle. Patient unable to give very good history and most of the information was gotten from the ER staff. Work-up in the emergency room today, he was slightly hypotensive on arrival. CT scan of the head shows chronic small vessel disease. X-ray of the right ankle show soft tissue ulceration with diffuse soft tissue edema throughout the lower extremity, no acute fracture. Labs were significant for worsening BUN and creatinine. Patient has been admitted with chronic right lower extremity ulcer, sepsis, hypotension, acute on chronic renal failure. 08/22: ID consulted, awaiting wound management, may need Debridement. Sitter requested. Continue supportive care. 08/23/20 patient is seen and examined. Patient is confused. Patient is try to get out of the bed. Continue IV ceftriaxone. Urine culture. Wound care evaluation. Potassium is 5.5. Patient is given Kayexalate 30 g p.o. x1 dose. Recheck CBC BMP in the morning. Continue supportive care. 08/24/20 patient is seen and examined. Patient is confused. Patient is try to get out of bed. We have started on soft restraint and Ativan as needed. Co ntinue IV ceftriaxone. Tomorrow we will change the antibiotic to p.o. Augmentin. Follow urine culture. Wound care evaluation. Recheck BMP in the morning. Continue supportive care. bridge worker evaluation for discharge planning. 08/25: Continue supportive care, Still with elevated Potassium and Na. Will give additional kayxalate and also Monitor. Will restart some home medications, patient is normally on Torsemide and BIDIL, coreg among others, will restart except Nephrotoxic meds, renal function showing some improvement. Continue D5W due to the noted HYPERNATREMIA Continue wound care, will obtain vascular evaluation prior to discharge ID following anticipate discharge in a.m. if no further input by vascular. I restarted some of his home psych medications anticipate that this will help improve his mentation so we can take him off restraints. 08/26: Continue supportive care, will obtain Psych consult to assist with management. Vascular work up ongoing. Patient on restriants for safety but if baseline, will discontinue and follow up outpatient. (1) Sepsis Current Visit: Yes Status: Acute Qualifiers: Sepsis type: sepsis due to unspecified organism Sepsis acute organ dysfunction status: with acute organ dysfunction Severe sepsis acute organ dysfunction type: encephalopathy Severe sepsis shock status: without septic shock Qualified Code(s): A41.9 - Sepsis, unspecified organism; R65.20 - Severe sepsis without septic shock; G93.40 - Encephalopathy, unspecified Plan to address problem: Possibly secondary to underlying chronic right ankle wound. Patient has been started on empiric IV antibiotics and IV fluid. (2) Ulcer of right ankle Current Visit: Yes Status: Acute Qualifiers: Non-pressure ulcer stage: unspecified non-pressure ulcer stage Qualified Code(s): L97.319 - Non-pressure chronic ulcer of right ankle with unspecified severity Plan to address problem: We will continue patient on empiric IV antibiotics. Consult placed to wound care team for evaluation and recommendation. We will consider infectious disease evaluation if needed. (3) Hypotension Current Visit: Yes Status: Acute Qualifiers: Hypotension type: unspecified hypotension type Qualified Code(s): I95.9 - Hypotension, unspecified Plan to address problem: Patient placed on gentle IV hydration. We will monitor vital signs closely. (4) Acute on chronic kidney failure secondary to ATN Current Visit: Yes Status: Acute Qualifiers: Acute renal failure type: unspecified Chronic kidney disease stage: unspecified stage Qualified Code(s): N17.9 - Acute kidney failure, unspecified; N18.9 - Chronic kidney disease, unspecified Plan to address problem: Consult placed to nephrology for evaluation and recommendation. (5) Hypernatermia (6)Hyperkalemia (7) Encephalopathy- Underlying Psych (8) DVT prophylaxis Current Visit: Yes Status: Acute Plan to address problem: Patient placed on subcutaneous heparin. (9) Full code status Current Visit: Yes Status: Acute Plan to address problem: Patient is full code. History Interval history: Patient seen and examined No new distress. Hospitalist Physical - Physical exam Narrative exam: General appearance: Present: no acute distress, well-nourished otherwise chronically ill-appearing, Intermittent confusion but looks like the baseline pysch related hx - EENT Eyes: Present: PERRL, EOM intact. Absent: scleral icterus ENT: hearing intact, clear oral mucosa, dentition normal - Neck Neck: Present: supple, normal ROM - Respiratory Respiratory effort: normal Respiratory: bilateral: CTA - Cardiovascular Rhythm: regular Heart Sounds: Present: S1 & S2. Absent: gallop, systolic murmur, diastolic murmur - Extremities Extremities: no ischemia, pulses intact, pulses symmetrical, Full ROM Extremity abnormal: edema (1+ bilatera lower extremity edema.), ulceration (Dressing over right ankle ulcer.) Peripheral Pulses: within normal limits - Abdominal General gastrointestinal: Present: soft, non-tender, non-distended, normal bowel sounds. Absent: mass - Integumentary Integumentary: Present: clear, warm, dry. Absent: rash - Musculoskeletal Musculoskeletal: strength equal bilaterally - Psychiatric Psychiatric: a confused, lacks insight into his clinical condition - Neurologic Neurologic: CNII-XII intact, no focal deficits, moves all extremities - Constitutional Vitals: Temp Pulse Resp BP Pulse Ox 98.8 F 115 H 20 96/59 90 08/26/20 12:15 08/26/20 12:15 08/26/20 12:15 08/26/20 12:15 08/26/20 12:15 General appearance: Present: no acute distress, well-nourished Results - Labs CBC & Chem 7: 08/23/20 04:14 08/26/20 07:35 Labs: Laboratory Last Values WBC 10.1 K/mm3 (4.5-11.0) 08/23/20 04:14 RBC 3.66 M/mm3 (3.65-5.03) 08/23/20 04:14 Hgb 10.2 gm/dl (11.8-15.2) L 08/23/20 04:14 Hct 30.5 % (35.5-45.6) L 08/23/20 04:14 MCV 83 fl (84-94) L 08/23/20 04:14 MCH 28 pg (28-32) 08/23/20 04:14 MCHC 33 % (32-34) 08/23/20 04:14 RDW 15.8 % (13.2-15.2) H 08/23/20 04:14 Plt Count 314 K/mm3 (140-440) 08/23/20 04:14 Lymph % (Auto) 10.0 % (13.4-35.0) L 08/22/20 05:29 [place] % (Auto) 11.2 % (0.0-7.3) H 08/22/20 05:29 Eos % (Auto) 0.6 % (0.0-4.3) 08/22/20 05:29 Baso % (Auto) 0.3 % (0.0-1.8) 08/22/20 05:29 Lymph # (Auto) 1.0 K/mm3 (1.2-5.4) L 08/22/20 05:29 [place] # (Auto) 1.1 K/mm3 (0.0-0.8) H 08/22/20 05:29 Eos # (Auto) 0.1 K/mm3 (0.0-0.4) 08/22/20 05:29 Baso # (Auto) 0.0 K/mm3 (0.0-0.1) 08/22/20 05:29 Seg Neutrophils % 77.9 % (40.0-70.0) H 08/22/20 05:29 Seg Neutrophils # 7.7 K/mm3 (1.8-7.7) 08/22/20 05:29 PT 14.8 Sec. (12.2-14.9) 08/22/20 05:29 INR 1.11 (0.87-1.13) 08/22/20 05:29 Sodium 149 mmol/L (137-145) H 08/26/20 07:35 Potassium 5.1 mmol/L (3.6-5.0) H 08/26/20 07:35 Chloride 116.7 mmol/L (98-107) H 08/26/20 07:35 Carbon Dioxide 22 mmol/L (22-30) 08/26/20 07:35 Anion Gap 15 mmol/L 08/26/20 07:35 BUN 38 mg/dL (9-20) H 08/26/20 07:35 Creatinine 1.9 mg/dL (0.8-1.3) H 08/26/20 07:35 Estimated GFR 44 ml/min 08/26/20 07:35 BUN/Creatinine Ratio 20 % 08/26/20 07:35 Glucose 96 mg/dL (75-100) 08/26/20 07:35 Lactic Acid 0.40 mmol/L (0.7-2.0) L 08/22/20 00:29 Calcium 9.4 mg/dL (8.4-10.2) 08/26/20 07:35 Total Bilirubin 0.30 mg/dL (0.1-1.2) 08/21/20 21:15 AST 22 units/L (5-40) 08/21/20 21:15 ALT 23 units/L (7-56) 08/21/20 21:15 Alkaline Phosphatase 97 units/L (35-129) 08/21/20 21:15 Ammonia 50.0 umol/L (25-60) 08/21/20 21:15 Total Protein 7.2 g/dL (6.3-8.2) 08/21/20 21:15 Albumin 3.3 g/dL (3.9-5) L 08/21/20 21:15 Albumin/Globulin Ratio 0.8 % 08/21/20 21:15 Urine Color Yellow (Yellow) 08/22/20 Unknown Urine Turbidity Clear (Clear) 08/22/20 Unknown Urine pH 5.0 (5.0-7.0) 08/22/20 Unknown Ur Specific [place] 1.020 (1.003-1.030) 08/22/20 Unknown Urine Protein <15 mg/dl mg/dL (Negative) 08/22/20 Unknown Urine Glucose (UA) Negative mg/dL (Negative) 08/22/20 Unknown Urine Ketones Negative mg/dL (Negative) 08/22/20 Unknown Urine Nitrite Negative (Negative) 08/22/20 Unknown Ur Reducing Substances Not Reportable 08/22/20 Unknown Urine Ictotest Negative (Negative) 08/22/20 Unknown Urine Urobilinogen < 2.0 mg/dL (<2.0) 08/22/20 Unknown Ur Leukocyte Esterase Moderate (Negative) 08/22/20 Unknown Urine WBC (Auto) > 182.0 /HPF (0.0-6.0) H 08/22/20 Unknown Urine RBC (Auto) 5.0 /HPF (0.0-6.0) 08/22/20 Unknown U Epithel Cells (Auto) 1.0 /HPF (0-13.0) 08/22/20 Unknown Urine Bacteria (Auto) 1+ /HPF (Negative) 08/22/20 Unknown Urine WBC Clumps 2+ /HPF 08/22/20 Unknown Urine Mucus Few /HPF 08/22/20 Unknown Urine Yeast (Budding) 1+ /HPF 08/22/20 Unknown Urine Opiates Screen Negative 08/22/20 Unknown Urine Methadone Screen Negative 08/22/20 Unknown Ur Barbiturates Screen Negative 08/22/20 Unknown Ur Phencyclidine Scrn Negative 08/22/20 Unknown Ur Amphetamines Screen Negative 08/22/20 Unknown U Benzodiazepines Scrn Negative 08/22/20 Unknown Urine Cocaine Screen Negative 08/22/20 Unknown U Marijuana (THC) Screen Negative 08/22/20 Unknown Drugs of Abuse Note Disclamer 08/22/20 Unknown Plasma/Serum Alcohol < 0.01 % (0-0.07) 08/21/20 21:15 Coronavirus (PCR) Negative (Negative) 08/22/20 Unknown Microbiology: Microbiology 08/21/20 21:15 Peripheral/Venous Blood Culture - Preliminary NO GROWTH AFTER 4 DAYS 08/21/20 21:34 Peripheral/Venous Blood Culture - Preliminary NO GROWTH AFTER 4 DAYS 08/23/20 Unknown Urine,Clean Catch Urine Culture - Final NO GROWTH AFTER 48 HOURS Cohn/IV: Voiding Method Condom Catheter Active Medications - Current Medications Current Medications: Generic Name Dose Route Start Last Admin Trade Name Freq PRN Reason Stop Dose Admin Carvedilol 25 mg 08/25/20 10:00 08/26/20 12:19 Carvedilol 25 Mg Tab PO Not Given BID ELIOT Divalproex Sodium 250 mg 08/25/20 10:00 08/26/20 10:[address] 250 Mg Tab PO 250 mg BID ELIOT Administration Gabapentin 100 mg 08/25/20 10:00 08/26/20 10:36 Gabapentin 100 Mg Cap PO Not Given Q8H ELIOT Heparin Sodium (Porcine) 5,000 unit 08/24/20 14:00 08/26/20 06:00 Heparin 5,000 Unit/1 Ml Vial SUB-Q 5,000 unit Q8HR ELIOT Administration Hydralazine HCl 5 mg 08/23/20 21:39 08/25/20 17:11 Hydralazine 20 Mg/1 Ml Inj IV 5 mg Q4HR PRN Administration Hypertension Ceftriaxone Sodium 2 gm in 100 mls @ 200 mls/hr 08/25/20 10:00 08/26/20 10:30 Rocephin/Ns 2 Gm/100 Ml IV 08/29/20 12:59 200 mls/hr Q24HR ELIOT Administration Protocol Dextrose 1,000 mls @ 75 mls/hr 08/24/20 11:00 08/25/20 22:03 D5w IV 75 mls/hr DIRECT ELIOT Administration Isosorbide Dinitrate/Hydralazine 1 each 08/25/20 14:00 08/26/20 05:28 Isosorb Dinit/Hydralazine 20-37.5mg Tab PO 1 each Q8HR ELIOT Administration Lorazepam 1 mg 08/24/20 08:01 08/26/20 11:48 Lorazepam 2 Mg/Ml Vial IV 1 mg Q4H PRN Administration Agitation Pentoxifylline 400 mg 08/25/20 10:00 08/26/20 10:30 Pentoxifylline Er 400 Mg Tab PO 400 mg Q12HR ELIOT Administration Sertraline HCl 50 mg 08/25/20 10:00 08/26/20 10:30 Sertraline 50 Mg Tab PO 50 mg QDAY ELIOT Administration Sodium Polystyrene Sulfonate 15 gm 08/26/20 11:00 08/26/20 11:48 Sodium Polystyrene 15 Gm/60 Ml Oral Liqd PO 08/26/20 15:00 15 gm ONCE ELIOT Administration Trazodone HCl 50 mg 08/23/20 22:00 08/25/20 21:45 Trazodone 50 Mg Tab PO 50 mg QHS ELIOT Administration
--- NOTE | 2020-08-26 13:06 | Progress Note ---
Assessment and Plan Cultures: 08/21/2020 blood culture: no growth 08/23/2020 urine culture: No growth A/P: 60-year-old male with dementia, CVA, COPD, detention resident was admitted to the hospital due to change in mental status: #UTI: UA with pyuria, no growth on urine culture. #Chronic right lower extremity wound: Large chronic appearing wound with features suggestive of possible pyoderma gangrenosum. ?venous ulcer. No acute cellulitis around it, mainstay is wound care. DVT scan: Negative, arterial doppler without significant peripheral arterial disease. #DANIKA versus CKD: Renally dose antibiotics. Recs: -Ceftriaxone discontinued -continue wound care to RLE -upon discharge, recommend PO minocycyline 100 mg BID for immunomodulatory benefit for possible pyoderma, duration about 2-3 months -may benefit from outpatient wound care ID will sign off. Please call with questions. Joselito Cates MD, FACP [facility] ([facility] O: [phone] F: [phone] Subjective Date of service: 08/26/20 Interval history: No fever. No new complaints. Has restraints on, not the best of historians. Objective - Exam Narrative Exam: Physical Exam: Constitutional: awake, no distress Head, Ears, Nose: Normocephalic, atraumatic. External ears, nose normal Eyes: Conjunctivae/corneas clear. No icterus. No ptosis. Neck: Supple, no meningeal signs Cardiovascular: S1, S2 normal. Respiratory: Good air entry, clear to auscultation bilaterally GI: Soft, non-tender; bowel sounds normal. No peritoneal signs Musculoskeletal: RLE edema with a large wound with dressing Skin: No rash or abscess Hem/Lymphatic: No palpable cervical or supraclavicular nodes. No lymphangitis - Constitutional Vitals: Vital Signs Temp Pulse Resp BP Pulse Ox 98.8 F 115 H 20 96/59 90 08/26/20 12:15 08/26/20 12:15 08/26/20 12:15 08/26/20 12:15 08/26/20 12:15 Temperature -Last 24 Hours Temperature 98.8 F Temperature 98.8 F Temperature 98.3 F Temperature 98.1 F Temperature 98.4 F Temperature 98.4 F - Labs CBC & Chem 7: 08/23/20 04:14 08/26/20 07:35 Labs: Abnormal lab results 08/26/20 Range/Units 07:35 Sodium 149 H (137-145) mmol/L Potassium 5.1 H (3.6-5.0) mmol/L Chloride 116.7 H (98-107) mmol/L BUN 38 H (9-20) mg/dL Creatinine 1.9 H (0.8-1.3) mg/dL
[2020-08-26] MEDS: DEXTROSE 5% IN WATER 1,000 ML IV SCH (13:23)
[2020-08-26 17:48] LABS: Creatinine,Urine 189.1 mg/dL (0.1-20.0)
[2020-08-26] MEDS: traZODone 50 MG TAB PO SCH (22:06)
[2020-08-27] MEDS: DEXTROSE 5% IN WATER 1,000 ML IV SCH ×2 (02:00→16:07)
[2020-08-27] MEDS: GABAPENTIN 100 MG CAP PO SCH ×3 (03:00→18:07)
[2020-08-27] MEDS: ISOSORB DINIT/HYDRALAZINE 20-37.5MG TAB PO SCH ×3 (05:12→22:42)
[2020-08-27] MEDS: HEPARIN 5,000 UNIT/1 ML VIAL SUB-Q SCH ×3 (05:12→22:44)
[2020-08-27 05:38] LABS: Calcium 9.5 mg/dL (8.4-10.2)
--- NOTE | 2020-08-27 08:30 | Progress Note ---
Assessment and Plan Assessment and plan: 60-year-old -Maltese male with known history of dementia, CVA, CHF, COPD and hypertension resident of a skilled nursing brought into the emergency room today with for evaluation of changes in mental status. He is said to be quite lethargic today and has not been getting out of bed. Patient normally goes out to smoke cigarettes but has been feeling quite weak today. Upon arrival of EMS patient was found to be hypotensive. He has a chronic foul- smelling ulcer on the right ankle. Patient unable to give very good history and most of the information was gotten from the ER staff. Work-up in the emergency room today, he was slightly hypotensive on arrival. CT scan of the head shows chronic small vessel disease. X-ray of the right ankle show soft tissue ulceration with diffuse soft tissue edema throughout the lower extremity, no acute fracture. Labs were significant for worsening BUN and creatinine. Patient has been admitted with chronic right lower extremity ulcer, sepsis, hypotension, acute on chronic renal failure. 08/22: ID consulted, awaiting wound management, may need Debridement. Sitter requested. Continue supportive care. 08/23/20 patient is seen and examined. Patient is confused. Patient is try to get out of the bed. Continue IV ceftriaxone. Urine culture. Wound care evaluation. Potassium is 5.5. Patient is given Kayexalate 30 g p.o. x1 dose. Recheck CBC BMP in the morning. Continue supportive care. 08/24/20 patient is seen and examined. Patient is confused. Patient is try to get out of bed. We have started on soft restraint and Ativan as needed. C ontinue IV ceftriaxone. Tomorrow we will change the antibiotic to p.o. Augmentin. Follow urine culture. Wound care evaluation. Recheck BMP in the morning. Continue supportive care. mop worker evaluation for discharge planning. 08/25: Continue supportive care, Still with elevated Potassium and Na. Will give additional kayxalate and also Monitor. Will restart some home medications, patient is normally on Torsemide and BIDIL, coreg among others, will restart except Nephrotoxic meds, renal function showing some improvement. Continue D5W due to the noted HYPERNATREMIA Continue wound care, will obtain vascular evaluation prior to discharge ID following anticipate discharge in a.m. if no further input by vascular. I restarted some of his home psych medications anticipate that this will help improve his mentation so we can take him off restraints. 08/26: Continue supportive care, will obtain Psych consult to assist with management. Vascular work up ongoing. Patient on restriants for safety but if baseline, will discontinue and follow up outpatient. 08/27/2020; patient was evaluated by ID and wound care and outpatient minocycline. Vascular consulted and ordered arterial Doppler and will evaluate the patient after that. Nephrology is following, hyperkalemia resolved. Patient is hypernatremic and will continue with D5W at 75. Patient is confused and on restraints. Patient is still on restraints and we going to take off the restraints and see how he is doing. (1) Sepsis Current Visit: Yes Status: Acute Qualifiers: Sepsis type: sepsis due to unspecified organism Sepsis acute organ dysfunction status: with acute organ dysfunction Severe sepsis acute organ dysfunction type: encephalopathy Severe sepsis shock status: without septic shock Qualified Code(s): A41.9 - Sepsis, unspecified organism; R65.20 - Severe sepsis without septic shock; G93.40 - Encephalopathy, unspecified Plan to address problem: Possibly secondary to underlying chronic right ankle wound. Patient has been started on empiric IV antibiotics and IV fluid. (2) Ulcer of right ankle Current Visit: Yes Status: Acute Qualifiers: Non-pressure ulcer stage: unspecified non-pressure ulcer stage Qualified Code(s): L97.319 - Non-pressure chronic ulcer of right ankle with unspecified severity Plan to address problem: We will continue patient on empiric IV antibiotics. Consult placed to wound care team for evaluation and recommendation. We will consider infectious disease evaluation if needed. (3) Hypotension Current Visit: Yes Status: Acute Qualifiers: Hypotension type: unspecified hypotension type Qualified Code(s): I95.9 - Hypotension, unspecified Plan to address problem: Patient placed on gentle IV hydration. We will monitor vital signs closely. (4) Acute on chronic kidney failure secondary to ATN Current Visit: Yes Status: Acute Qualifiers: Acute renal failure type: unspecified Chronic kidney disease stage: unspecified stage Qualified Code(s): N17.9 - Acute kidney failure, unspecified; N18.9 - Chronic kidney disease, unspecified Plan to address problem: Consult placed to nephrology for evaluation and recommendation. (5) Hypernatermia (6)Hyperkalemia (7) Encephalopathy- Underlying Psych (8) DVT prophylaxis Current Visit: Yes Status: Acute Plan to address problem: Patient placed on subcutaneous heparin. (9) Full code status Current Visit: Yes Status: Acute Plan to address problem: Patient is full code. History Interval history: Patient was seen and evaluated this morning Patient was alert and oriented Patient was on restraints Hospitalist Physical - Physical exam Narrative exam: Not in cardiopulmonary distress. The patient appeared well nourished and normally developed. Vital signs as documented. Head exam is unremarkable. No scleral icterus . Neck is without jugular venous distension, thyromegaly, or carotid bruits. Lungs are clear to auscultation. Cardiac exam reveals regular rate and Rhythm. Abdominal exam reveals normal bowel sounds, nontender, no organomegaly. Extremities are nonedematous and both femoral and pedal pulses are normal. Right leg wound, clean dressing. 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 No focal weakness. - Constitutional Vitals: Temp Pulse Resp BP Pulse Ox 97.6 F 83 18 112/77 94 08/27/20 04:25 08/27/20 05:12 08/27/20 04:25 08/27/20 05:12 08/27/20 04:25 General appearance: Present: no acute distress, well-nourished Results - Labs CBC & Chem 7: 08/23/20 04:14 08/27/20 04:16 Labs: Laboratory Last Values WBC 10.1 K/mm3 (4.5-11.0) 08/23/20 04:14 RBC 3.66 M/mm3 (3.65-5.03) 08/23/20 04:14 Hgb 10.2 gm/dl (11.8-15.2) L 08/23/20 04:14 Hct 30.5 % (35.5-45.6) L 08/23/20 04:14 MCV 83 fl (84-94) L 08/23/20 04:14 MCH 28 pg (28-32) 08/23/20 04:14 MCHC 33 % (32-34) 08/23/20 04:14 RDW 15.8 % (13.2-15.2) H 08/23/20 04:14 Plt Count 314 K/mm3 (140-440) 08/23/20 04:14 Lymph % (Auto) 10.0 % (13.4-35.0) L 08/22/20 05:29 [place] % (Auto) 11.2 % (0.0-7.3) H 08/22/20 05:29 Eos % (Auto) 0.6 % (0.0-4.3) 08/22/20 05:29 Baso % (Auto) 0.3 % (0.0-1.8) 08/22/20 05:29 Lymph # (Auto) 1.0 K/mm3 (1.2-5.4) L 08/22/20 05:29 [place] # (Auto) 1.1 K/mm3 (0.0-0.8) H 08/22/20 05:29 Eos # (Auto) 0.1 K/mm3 (0.0-0.4) 08/22/20 05:29 Baso # (Auto) 0.0 K/mm3 (0.0-0.1) 08/22/20 05:29 Seg Neutrophils % 77.9 % (40.0-70.0) H 08/22/20 05:29 Seg Neutrophils # 7.7 K/mm3 (1.8-7.7) 08/22/20 05:29 PT 14.8 Sec. (12.2-14.9) 08/22/20 05:29 INR 1.11 (0.87-1.13) 08/22/20 05:29 Sodium 149 mmol/L (137-145) H 08/27/20 04:16 Potassium 4.7 mmol/L (3.6-5.0) 08/27/20 04:16 Chloride 110.9 mmol/L (98-107) H 08/27/20 04:16 Carbon Dioxide 28 mmol/L (22-30) 08/27/20 04:16 Anion Gap 15 mmol/L 08/27/20 04:16 BUN 35 mg/dL (9-20) H 08/27/20 04:16 Creatinine 1.8 mg/dL (0.8-1.3) H 08/27/20 04:16 Estimated GFR 47 ml/min 08/27/20 04:16 BUN/Creatinine Ratio 19 % 08/27/20 04:16 Glucose 99 mg/dL (75-100) 08/27/20 04:16 Lactic Acid 0.40 mmol/L (0.7-2.0) L 08/22/20 00:29 Calcium 9.5 mg/dL (8.4-10.2) 08/27/20 04:16 Total Bilirubin 0.30 mg/dL (0.1-1.2) 08/21/20 21:15 AST 22 units/L (5-40) 08/21/20 21:15 ALT 23 units/L (7-56) 08/21/20 21:15 Alkaline Phosphatase 97 units/L (35-129) 08/21/20 21:15 Ammonia 50.0 umol/L (25-60) 08/21/20 21:15 Total Protein 7.2 g/dL (6.3-8.2) 08/21/20 21:15 Albumin 3.3 g/dL (3.9-5) L 08/21/20 21:15 Albumin/Globulin Ratio 0.8 % 08/21/20 21:15 Urine Color Yellow (Yellow) 08/22/20 Unknown Urine Turbidity Clear (Clear) 08/22/20 Unknown Urine pH 5.0 (5.0-7.0) 08/22/20 Unknown Ur Specific [place] 1.020 (1.003-1.030) 08/22/20 Unknown Urine Protein <15 mg/dl mg/dL (Negative) 08/22/20 Unknown Urine Glucose (UA) Negative mg/dL (Negative) 08/22/20 Unknown Urine Ketones Negative mg/dL (Negative) 08/22/20 Unknown Urine Nitrite Negative (Negative) 08/22/20 Unknown Ur Reducing Substances Not Reportable 08/22/20 Unknown Urine Ictotest Negative (Negative) 08/22/20 Unknown Urine Urobilinogen < 2.0 mg/dL (<2.0) 08/22/20 Unknown Ur Leukocyte Esterase Moderate (Negative) 08/22/20 Unknown Urine WBC (Auto) > 182.0 /HPF (0.0-6.0) H 08/22/20 Unknown Urine RBC (Auto) 5.0 /HPF (0.0-6.0) 08/22/20 Unknown U Epithel Cells (Auto) 1.0 /HPF (0-13.0) 08/22/20 Unknown Urine Bacteria (Auto) 1+ /HPF (Negative) 08/22/20 Unknown Urine WBC Clumps 2+ /HPF 08/22/20 Unknown Urine Mucus Few /HPF 08/22/20 Unknown Urine Yeast (Budding) 1+ /HPF 08/22/20 Unknown Urine Eosinophils None seen (None Seen) 08/23/20 Unknown Urine Osmolality 472 Mosm/kg 08/25/20 Unknown Urine Creatinine 189.1 mg/dL (0.1-20.0) H 08/25/20 Unknown Urine Sodium 10 mmol/L 08/25/20 Unknown Urine Opiates Screen Negative 08/22/20 Unknown Urine Methadone Screen Negative 08/22/20 Unknown Ur Barbiturates Screen Negative 08/22/20 Unknown Ur Phencyclidine Scrn Negative 08/22/20 Unknown Ur Amphetamines Screen Negative 08/22/20 Unknown U Benzodiazepines Scrn Negative 08/22/20 Unknown Urine Cocaine Screen Negative 08/22/20 Unknown U Marijuana (THC) Screen Negative 08/22/20 Unknown Drugs of Abuse Note Disclamer 08/22/20 Unknown Plasma/Serum Alcohol < 0.01 % (0-0.07) 08/21/20 21:15 Coronavirus (PCR) Negative (Negative) 08/22/20 Unknown Microbiology: Microbiology 08/21/20 21:15 Peripheral/Venous Blood Culture - Final NO GROWTH AFTER 5 DAYS 08/21/20 21:34 Peripheral/Venous Blood Culture - Final NO GROWTH AFTER 5 DAYS Cohn/IV: Voiding Method Condom Catheter Active Medications - Current Medications Current Medications: Generic Name Dose Route Start Last Admin Trade Name Freq PRN Reason Stop Dose Admin Carvedilol 25 mg 08/25/20 10:00 08/26/20 22:10 Carvedilol 25 Mg Tab PO 25 mg BID ELIOT Administration Divalproex Sodium 250 mg 08/25/20 10:00 08/26/20 22:[address] 250 Mg Tab PO 250 mg BID ELIOT Administration Gabapentin 100 mg 08/25/20 10:00 08/27/20 03:00 Gabapentin 100 Mg Cap PO 100 mg Q8H ELIOT Administration Heparin Sodium (Porcine) 5,000 unit 08/24/20 14:00 08/27/20 05:12 Heparin 5,000 Unit/1 Ml Vial SUB-Q 5,000 unit Q8HR ELIOT Administration Hydralazine HCl 5 mg 08/23/20 21:39 08/25/20 17:11 Hydralazine 20 Mg/1 Ml Inj IV 5 mg Q4HR PRN Administration Hypertension Dextrose 1,000 mls @ 75 mls/hr 08/24/20 11:00 08/27/20 02:00 D5w IV 75 mls/hr DIRECT ELIOT Administration Isosorbide Dinitrate/Hydralazine 1 each 08/25/20 14:00 08/27/20 05:12 Isosorb Dinit/Hydralazine 20-37.5mg Tab PO Not Given Q8HR ELIOT Lorazepam 1 mg 08/24/20 08:01 08/26/20 11:48 Lorazepam 2 Mg/Ml Vial IV 1 mg Q4H PRN Administration Agitation Pentoxifylline 400 mg 08/25/20 10:00 08/26/20 22:08 Pentoxifylline Er 400 Mg Tab PO 400 mg Q12HR ELIOT Administration Sertraline HCl 50 mg 08/25/20 10:00 08/26/20 10:30 Sertraline 50 Mg Tab PO 50 mg QDAY ELIOT Administration Trazodone HCl 50 mg 08/23/20 22:00 08/26/20 22:06 Trazodone 50 Mg Tab PO 50 mg QHS ELIOT Administration
[2020-08-27] MEDS: PENTOXIFYLLINE ER 400 MG TAB PO SCH ×2 (09:16→22:42)
[2020-08-27] MEDS: DIVALPROEX DR 250 MG TAB PO SCH ×2 (09:16→22:42)
[2020-08-27] MEDS: carvediloL 25 MG TAB PO SCH ×2 (09:16→22:43)
[2020-08-27] MEDS: SERTRALINE 50 MG TAB PO SCH (09:16)
--- NOTE | 2020-08-27 10:06 | Progress Note ---
Assessment and Plan 1. Acute kidney injury: Vasomotor DANIKA in the setting of hypotension / shock. Renal US negative. Baseline renal function unknown. Continue IV fluids. Monitor renal function. Creatinine level fluctuates. Avoid nephrotoxic agents. Meds dosage based on GFR. 2. FEN: Hypernatremia, continue IV D5W, monitor. Hyperkalemia, improved, monitor. Monitor lytes and volume status. 3. Hypotension: BP is better. 4. UTI: S/p Abx. Seen by ID. 5. Chronic right lower extremity wound: Wound care. 6. Anemia, POA: Monitor. Subjective: Patient was seen and examined at the bedside. Examination: General appearance: well-developed, appears stated age, no distress HEENT: ATNC, MATILDE Neck: trachea midline Respiratory: Clear to Auscultation Heart: regular, S1S2, no murmur Gastrointestinal: soft, normoactive bowel sounds, not tender, not distended Integumentary: R leg covered with dressing, LE stasis changes noted Neurologic: alert, able to move extremities, confused Ext: no edema Subjective Date of service: 08/27/20 Objective - Vital Signs Vital signs: Vital Signs - 12hr 08/26/20 08/26/20 08/27/20 22:10 23:53 04:25 Temperature 98.9 F 97.6 F Pulse Rate 92 H 93 H 92 H Respiratory 18 18 Rate Blood Pressure 170/108 119/73 Blood Pressure 93/47 [Right] O2 Sat by Pulse 97 94 Oximetry 08/27/20 08/27/20 05:12 08:00 Temperature 97.8 F Pulse Rate 83 86 Respiratory 18 Rate Blood Pressure 112/77 Blood Pressure 120/76 [Right] O2 Sat by Pulse 96 Oximetry - Lab 08/23/20 04:14 08/27/20 04:16 Most recent lab results Calcium 9.5 mg/dL (8.4-10.2) 08/27/20 04:16 Urine Creatinine 189.1 mg/dL (0.1-20.0) H 08/25/20 Unknown Urine Sodium 10 mmol/L 08/25/20 Unknown Medications & Allergies - Medications Allergies/Adverse Reactions: Allergies No Known Allergies Allergy (Verified 08/21/20 21:39) Home Medications: Home Medications Medication Instructions Recorded Confirmed Last Taken Type AtorvaSTATin [Lipitor] 40 mg PO HS 08/26/20 08/26/20 Unknown History Divalproex ER [DepaKOTE ER] 250 mg PO DAILY 08/26/20 08/26/20 Unknown History Gabapentin [Neurontin] 100 mg PO Q8HR 08/26/20 08/26/20 Unknown History Isosorb Dinit/Hydralazine [Bidil 1 tab PO Q8H 08/26/20 08/26/20 Unknown History 20/37.5MG] Melatonin [Melatonin 5MG TAB] 5 mg PO HS 08/26/20 08/26/20 Unknown History Pentoxifylline 1 tab PO DAILY 08/26/20 08/26/20 Unknown History Sertraline HCl [Zoloft] 75 mg PO DAILY 08/26/20 08/26/20 Unknown History Torsemide [Demadex] 20 mg PO DAILY 08/26/20 08/26/20 Unknown History carvediloL [Coreg] 25 mg PO BID 08/26/20 08/26/20 Unknown History lisinopriL [Lisinopril] 40 mg PO DAILY 08/26/20 08/26/20 Unknown History Active Medications: Generic Name Dose Route Start Last Admin Trade Name Freq PRN Reason Stop Dose Admin Carvedilol 25 mg 08/25/20 10:00 08/27/20 09:16 Carvedilol 25 Mg Tab PO 25 mg BID ELIOT Administration Divalproex Sodium 250 mg 08/25/20 10:00 08/27/20 09:[address] 250 Mg Tab PO 250 mg BID ELIOT Administration Gabapentin 100 mg 08/25/20 10:00 08/27/20 09:16 Gabapentin 100 Mg Cap PO 100 mg Q8H ELIOT Administration Heparin Sodium (Porcine) 5,000 unit 08/24/20 14:00 08/27/20 05:12 Heparin 5,000 Unit/1 Ml Vial SUB-Q 5,000 unit Q8HR ELIOT Administration Hydralazine HCl 5 mg 08/23/20 21:39 08/25/20 17:11 Hydralazine 20 Mg/1 Ml Inj IV 5 mg Q4HR PRN Administration Hypertension Dextrose 1,000 mls @ 75 mls/hr 08/24/20 11:00 08/27/20 02:00 D5w IV 75 mls/hr DIRECT ELIOT Administration Isosorbide Dinitrate/Hydralazine 1 each 08/25/20 14:00 08/27/20 05:12 Isosorb Dinit/Hydralazine 20-37.5mg Tab PO Not Given Q8HR ELIOT Lorazepam 1 mg 08/24/20 08:01 08/26/20 11:48 Lorazepam 2 Mg/Ml Vial IV 1 mg Q4H PRN Administration Agitation Pentoxifylline 400 mg 08/25/20 10:00 08/27/20 09:16 Pentoxifylline Er 400 Mg Tab PO 400 mg Q12HR ELIOT Administration Sertraline HCl 50 mg 08/25/20 10:00 08/27/20 09:16 Sertraline 50 Mg Tab PO 50 mg QDAY ELIOT Administration Trazodone HCl 50 mg 08/23/20 22:00 08/26/20 22:06 Trazodone 50 Mg Tab PO 50 mg QHS ELIOT Administration
--- NOTE | 2020-08-27 13:18 | Consultation ---
History of Present Illness - Reason for Consult Consult date: 08/27/20 Wounds LE Requesting physician: GRANT BRANCH - History of Present Illness 60-year-old -Citizen Of [place] male with known history of dementia, CVA, CHF, COPD and hypertension resident of a jail brought into the emergency room today with for evaluation of changes in mental status. He is said to be quite lethargic today and has not been getting out of bed. Patient normally goes out to smoke cigarettes but has been feeling quite weak today. Patient presented with sepsis and has subsequently improved. CT scan of the head shows chronic small vessel disease. X-ray of the right ankle show soft tissue ulceration with diffuse soft tissue edema throughout the lower extremity, no acute fracture. Patient has been admitted with chronic right lower extremity ulcer, sepsis, hypotension, acute on chronic renal failure. Vascular consulted during his admission for evaluation of the right lower extremity wound. Patient declined to allow me to take down his right lower extremity dressings, a nd therefore I evaluated the wound based on wound pictures. Patient has some venous stasis changes of his legs, but no overt lipodermatosclerosis. There is a large chronic ulceration of the right calf which, according to the patient, has been there for 3 months. I am not sure how reliable historian the patient is. The patient has palpable dorsalis pedis pulses and a palpable left posterior tibial pulse. I could not palpate the right posterior pulse due to patient pain and withdrawal of the limb. Patient denies any heaviness tightness or discomfort in his calves. He reports that he could walk as far as he wanted until 3 months ago. Past History Past Medical History: COPD, heart failure, hypertension, stroke, other (Chronic Ulcers,Vascular Dementia,Falls) Social history: smoking (Current daily smoker) Family history: no significant family history Medications and Allergies Allergies Allergy/AdvReac Type Severity Reaction Status Date / Time No Known Allergies Allergy Verified 08/21/20 21:39 Home Medications Medication Instructions Recorded Confirmed Last Taken Type AtorvaSTATin [Lipitor] 40 mg PO HS 08/26/20 08/26/20 Unknown History Divalproex ER [DepaKOTE ER] 250 mg PO DAILY 08/26/20 08/26/20 Unknown History Gabapentin [Neurontin] 100 mg PO Q8HR 08/26/20 08/26/20 Unknown History Isosorb Dinit/Hydralazine [Bidil 1 tab PO Q8H 08/26/20 08/26/20 Unknown History 20/37.5MG] Melatonin [Melatonin 5MG TAB] 5 mg PO HS 08/26/20 08/26/20 Unknown History Pentoxifylline 1 tab PO DAILY 08/26/20 08/26/20 Unknown History Sertraline HCl [Zoloft] 75 mg PO DAILY 08/26/20 08/26/20 Unknown History Torsemide [Demadex] 20 mg PO DAILY 08/26/20 08/26/20 Unknown History carvediloL [Coreg] 25 mg PO BID 08/26/20 08/26/20 Unknown History lisinopriL [Lisinopril] 40 mg PO DAILY 08/26/20 08/26/20 Unknown History Active Meds: Active Medications Carvedilol (Carvedilol 25 Mg Tab) 25 mg PO BID [facility] Last Admin: 08/27/20 09:16 Dose: 25 mg Documented by: Divalproex Sodium (Divalproex Dr 250 Mg Tab) 250 mg PO BID [facility] Last Admin: 08/27/20 09:16 Dose: 250 mg Documented by: Gabapentin (Gabapentin 100 Mg Cap) 100 mg PO Q8H [facility] Last Admin: 08/27/20 09:16 Dose: 100 mg Documented by: Heparin Sodium (Porcine) (Heparin 5,000 Unit/1 Ml Vial) 5,000 unit SUB-Q Q8HR [facility] Last Admin: 08/27/20 05:12 Dose: 5,000 unit Documented by: Hydralazine HCl (Hydralazine 20 Mg/1 Ml Inj) 5 mg IV Q4HR PRN PRN Reason: Hypertension Last Admin: 08/25/20 17:11 Dose: 5 mg Documented by: Dextrose (D5w) 1,000 mls @ 100 mls/hr IV DIRECT [facility] Last Admin: 08/27/20 02:00 Dose: 75 mls/hr Documented by: Isosorbide Dinitrate/Hydralazine (Isosorb Dinit/Hydralazine 20-37.5mg Tab) 1 each PO Q8HR [facility] Last Admin: 08/27/20 05:12 Dose: Not Given Documented by: Lorazepam (Lorazepam 2 Mg/Ml Vial) 1 mg IV Q4H PRN PRN Reason: Agitation Last Admin: 08/26/20 11:48 Dose: 1 mg Documented by: Pentoxifylline (Pentoxifylline Er 400 Mg Tab) 400 mg PO Q12HR [facility] Last Admin: 08/27/20 09:16 Dose: 400 mg Documented by: Sertraline HCl (Sertraline 50 Mg Tab) 50 mg PO QDAY [facility] Last Admin: 08/27/20 09:16 Dose: 50 mg Documented by: Trazodone HCl (Trazodone 50 Mg Tab) 50 mg PO QHS [facility] Last Admin: 08/26/20 22:06 Dose: 50 mg Documented by: Review of Systems All systems: negative (see HPI) Exam - Constitutional Vitals: Temp Pulse Resp BP Pulse Ox 97.9 F 82 20 124/73 98 08/27/20 11:40 08/27/20 11:40 08/27/20 11:40 08/27/20 11:40 08/27/20 11:40 General appearance: Present: mild distress (Right lower extremity pain) - EENT Eyes: Present: EOM intact ENT: hearing intact - Neck Neck: Present: supple - Respiratory Respiratory effort: normal - Extremities Extremities: pulses intact, abnormal (Bandages over right lower extremity wound which patient would not allow me to remove) - Abdominal General gastrointestinal: Present: soft, non-tender - Psychiatric Psychiatric: other (Patient is cooperative, but has flat affect and does not appear to have much insight.) - Neurologic Neurologic: moves all extremities Results - Labs CBC & Chem 7: 08/23/20 04:14 08/27/20 04:16 Labs: Abnormal lab results 08/25/20 08/27/20 Range/Units Unknown 04:16 Sodium 149 H (137-145) mmol/L Chloride 110.9 H (98-107) mmol/L BUN 35 H (9-20) mg/dL Creatinine 1.8 H (0.8-1.3) mg/dL Urine Creatinine 189.1 H (0.1-20.0) mg/dL Assessment and Plan 60-year-old male with chronic wound of the right lower extremity and multiple medical issues. According to the patient, who is a poor historian, the wound has been there for 3 months. Patient has normal arterial Doppler, and normal pulse exam (although patient declined to allow me to palpate his right posterior tibial pulse). Differential for this ulceration includes pyoderma gangrenosum and venous ulcer. Of note, no clear other sites of pathergy noted on the patient's body. Recommend dermatology referral as outpatient. Recommend wound care referral as outpatient. Venous insufficiency study can be performed as outpatient, but treatment would usually be performed after dermatology evaluation as pathergy can occur with pyoderma gangrenosum. Noted patient already on pentoxifylline which can help with venous ulcerations if this is a venous ulcer. No vascular interventions need to be performed during this admission.
[2020-08-27] MEDS: traZODone 50 MG TAB PO SCH (22:43)
[2020-08-28] MEDS: GABAPENTIN 100 MG CAP PO SCH ×3 (02:43→17:01)
[2020-08-28] MEDS: ISOSORB DINIT/HYDRALAZINE 20-37.5MG TAB PO SCH ×3 (08:01→21:51)
[2020-08-28] MEDS: HEPARIN 5,000 UNIT/1 ML VIAL SUB-Q SCH ×3 (08:05→21:52)
--- NOTE | 2020-08-28 08:21 | Progress Note ---
Assessment and Plan Assessment and plan: 60-year-old -[place]er male with known history of dementia, CVA, CHF, COPD and hypertension resident of a detention brought into the emergency room today with for evaluation of changes in mental status. He is said to be quite lethargic today and has not been getting out of bed. Patient normally goes out to smoke cigarettes but has been feeling quite weak today. Upon arrival of EMS patient was found to be hypotensive. He has a chronic foul- smelling ulcer on the right ankle. Patient unable to give very good history and most of the information was gotten from the ER staff. Work-up in the emergency room today, he was slightly hypotensive on arrival. CT scan of the head shows chronic small vessel disease. X-ray of the right ankle show soft tissue ulceration with diffuse soft tissue edema throughout the lower extremity, no acute fracture. Labs were significant for worsening BUN and creatinine. Patient has been admitted with chronic right lower extremity ulcer, sepsis, hypotension, acute on chronic renal failure. 08/22: ID consulted, awaiting wound management, may need Debridement. Sitter requested. Continue supportive care. 08/23/20 patient is seen and examined. Patient is confused. Patient is try to get out of the bed. Continue IV ceftriaxone. Urine culture. Wound care evaluation. Potassium is 5.5. Patient is given Kayexalate 30 g p.o. x1 dose. Recheck CBC BMP in the morning. Continue supportive care. 08/24/20 patient is seen and examined. Patient is confused. Patient is try to get out of bed. We have started on soft restraint and Ativan as needed. C ontinue IV ceftriaxone. Tomorrow we will change the antibiotic to p.o. Augmentin. Follow urine culture. Wound care evaluation. Recheck BMP in the morning. Continue supportive care. material requirements worker evaluation for discharge planning. 08/25: Continue supportive care, Still with elevated Potassium and Na. Will give additional kayxalate and also Monitor. Will restart some home medications, patient is normally on Torsemide and BIDIL, coreg among others, will restart except Nephrotoxic meds, renal function showing some improvement. Continue D5W due to the noted HYPERNATREMIA Continue wound care, will obtain vascular evaluation prior to discharge ID following anticipate discharge in a.m. if no further input by vascular. I restarted some of his home psych medications anticipate that this will help improve his mentation so we can take him off restraints. 08/26: Continue supportive care, will obtain Psych consult to assist with management. Vascular work up ongoing. Patient on restriants for safety but if baseline, will discontinue and follow up outpatient. 08/27/2020; patient was evaluated by ID and wound care and outpatient minocycline. Vascular consulted and ordered arterial Doppler and will evaluate the patient after that. Nephrology is following, hyperkalemia resolved. Patient is hypernatremic and will continue with D5W at 75. Patient is confused and on restraints. Patient is still on restraints and we going to take off the restraints and see how he is doing. 08/28/2020; patient was evaluated by vascular and recommend outpatient venous study and dermatologic evaluation. ID recommendations appreciated. Will follow BMP. Patient is on CIWA protocol for alcohol withdrawal. (1) Sepsis Current Visit: Yes Status: Acute Qualifiers: Sepsis type: sepsis due to unspecified organism Sepsis acute organ dysfunction status: with acute organ dysfunction Severe sepsis acute organ dysfunction type: encephalopathy Severe sepsis shock status: without septic shock Qualified Code(s): A41.9 - Sepsis, unspecified organism; R65.20 - Severe sepsis without septic shock; G93.40 - Encephalopathy, unspecified Plan to address problem: Possibly secondary to underlying chronic right ankle wound. Patient has been started on empiric IV antibiotics and IV fluid. (2) Ulcer of right ankle Current Visit: Yes Status: Acute Qualifiers: Non-pressure ulcer stage: unspecified non-pressure ulcer stage Qualified Code(s): L97.319 - Non-pressure chronic ulcer of right ankle with unspecified severity Plan to address problem: We will continue patient on empiric IV antibiotics. Consult placed to wound care team for evaluation and recommendation. We will consider infectious disease evaluation if needed. (3) Hypotension Current Visit: Yes Status: Acute Qualifiers: Hypotension type: unspecified hypotension type Qualified Code(s): I95.9 - Hypotension, unspecified Plan to address problem: Patient placed on gentle IV hydration. We will monitor vital signs closely. (4) Acute on chronic kidney failure secondary to ATN Current Visit: Yes Status: Acute Qualifiers: Acute renal failure type: unspecified Chronic kidney disease stage: unspecified stage Qualified Code(s): N17.9 - Acute kidney failure, unspecified; N18.9 - Chronic kidney disease, unspecified Plan to address problem: Consult placed to nephrology for evaluation and recommendation. (5) Hypernatermia (6)Hyperkalemia (7) Encephalopathy- Underlying Psych (8) DVT prophylaxis Current Visit: Yes Status: Acute Plan to address problem: Patient placed on subcutaneous heparin. (9) Full code status Current Visit: Yes Status: Acute Plan to address problem: Patient is full code. History Interval history: Patient was seen and evaluated this morning Patient was alert and oriented Patient was off restraints this morning, patient was agitated overnight Hospitalist Physical - Physical exam Narrative exam: Not in cardiopulmonary distress. The patient appeared well nourished and normally developed. Vital signs as documented. Head exam is unremarkable. No scleral icterus . Neck is without jugular venous distension, thyromegaly, or carotid bruits. Lungs are clear to auscultation. Cardiac exam reveals regular rate and Rhythm. Abdominal exam reveals normal bowel sounds, nontender, no organomegaly. Extremities are nonedematous and both femoral and pedal pulses are normal. Right leg wound, clean dressing. CASH APPLICATIONS ASSOCIATE: Alert and oriented 3. No focal weakness. - Constitutional Vitals: Temp Pulse Resp BP Pulse Ox 98.9 F 92 H 20 96/45 96 08/28/20 07:26 08/28/20 07:26 08/28/20 07:26 08/28/20 08:01 08/28/20 07:26 General appearance: Present: mild distress (Right lower extremity pain) Results - Labs CBC & Chem 7: 08/23/20 04:14 08/28/20 09:13 Labs: Laboratory Last Values WBC 10.1 K/mm3 (4.5-11.0) 08/23/20 04:14 RBC 3.66 M/mm3 (3.65-5.03) 08/23/20 04:14 Hgb 10.2 gm/dl (11.8-15.2) L 08/23/20 04:14 Hct 30.5 % (35.5-45.6) L 08/23/20 04:14 MCV 83 fl (84-94) L 08/23/20 04:14 MCH 28 pg (28-32) 08/23/20 04:14 MCHC 33 % (32-34) 08/23/20 04:14 RDW 15.8 % (13.2-15.2) H 08/23/20 04:14 Plt Count 314 K/mm3 (140-440) 08/23/20 04:14 Lymph % (Auto) 10.0 % (13.4-35.0) L 08/22/20 05:29 [place] % (Auto) 11.2 % (0.0-7.3) H 08/22/20 05:29 Eos % (Auto) 0.6 % (0.0-4.3) 08/22/20 05:29 Baso % (Auto) 0.3 % (0.0-1.8) 08/22/20 05:29 Lymph # (Auto) 1.0 K/mm3 (1.2-5.4) L 08/22/20 05:29 [place] # (Auto) 1.1 K/mm3 (0.0-0.8) H 08/22/20 05:29 Eos # (Auto) 0.1 K/mm3 (0.0-0.4) 08/22/20 05:29 Baso # (Auto) 0.0 K/mm3 (0.0-0.1) 08/22/20 05:29 Seg Neutrophils % 77.9 % (40.0-70.0) H 08/22/20 05:29 Seg Neutrophils # 7.7 K/mm3 (1.8-7.7) 08/22/20 05:29 PT 14.8 Sec. (12.2-14.9) 08/22/20 05:29 INR 1.11 (0.87-1.13) 08/22/20 05:29 Sodium 149 mmol/L (137-145) H 08/27/20 04:16 Potassium 4.7 mmol/L (3.6-5.0) 08/27/20 04:16 Chloride 110.9 mmol/L (98-107) H 08/27/20 04:16 Carbon Dioxide 28 mmol/L (22-30) 08/27/20 04:16 Anion Gap 15 mmol/L 08/27/20 04:16 BUN 35 mg/dL (9-20) H 08/27/20 04:16 Creatinine 1.8 mg/dL (0.8-1.3) H 08/27/20 04:16 Estimated GFR 47 ml/min 08/27/20 04:16 BUN/Creatinine Ratio 19 % 08/27/20 04:16 Glucose 99 mg/dL (75-100) 08/27/20 04:16 Lactic Acid 0.40 mmol/L (0.7-2.0) L 08/22/20 00:29 Calcium 9.5 mg/dL (8.4-10.2) 08/27/20 04:16 Total Bilirubin 0.30 mg/dL (0.1-1.2) 08/21/20 21:15 AST 22 units/L (5-40) 08/21/20 21:15 ALT 23 units/L (7-56) 08/21/20 21:15 Alkaline Phosphatase 97 units/L (35-129) 08/21/20 21:15 Ammonia 50.0 umol/L (25-60) 08/21/20 21:15 Total Protein 7.2 g/dL (6.3-8.2) 08/21/20 21:15 Albumin 3.3 g/dL (3.9-5) L 08/21/20 21:15 Albumin/Globulin Ratio 0.8 % 08/21/20 21:15 Urine Color Yellow (Yellow) 08/22/20 Unknown Urine Turbidity Clear (Clear) 08/22/20 Unknown Urine pH 5.0 (5.0-7.0) 08/22/20 Unknown Ur Specific [place] 1.020 (1.003-1.030) 08/22/20 Unknown Urine Protein <15 mg/dl mg/dL (Negative) 08/22/20 Unknown Urine Glucose (UA) Negative mg/dL (Negative) 08/22/20 Unknown Urine Ketones Negative mg/dL (Negative) 08/22/20 Unknown Urine Nitrite Negative (Negative) 08/22/20 Unknown Ur Reducing Substances Not Reportable 08/22/20 Unknown Urine Ictotest Negative (Negative) 08/22/20 Unknown Urine Urobilinogen < 2.0 mg/dL (<2.0) 08/22/20 Unknown Ur Leukocyte Esterase Moderate (Negative) 08/22/20 Unknown Urine WBC (Auto) > 182.0 /HPF (0.0-6.0) H 08/22/20 Unknown Urine RBC (Auto) 5.0 /HPF (0.0-6.0) 08/22/20 Unknown U Epithel Cells (Auto) 1.0 /HPF (0-13.0) 08/22/20 Unknown Urine Bacteria (Auto) 1+ /HPF (Negative) 08/22/20 Unknown Urine WBC Clumps 2+ /HPF 08/22/20 Unknown Urine Mucus Few /HPF 08/22/20 Unknown Urine Yeast (Budding) 1+ /HPF 08/22/20 Unknown Urine Eosinophils None seen (None Seen) 08/23/20 Unknown Urine Osmolality 472 Mosm/kg 08/25/20 Unknown Urine Creatinine 189.1 mg/dL (0.1-20.0) H 08/25/20 Unknown Urine Sodium 10 mmol/L 08/25/20 Unknown Urine Opiates Screen Negative 08/22/20 Unknown Urine Methadone Screen Negative 08/22/20 Unknown Ur Barbiturates Screen Negative 08/22/20 Unknown Ur Phencyclidine Scrn Negative 08/22/20 Unknown Ur Amphetamines Screen Negative 08/22/20 Unknown U Benzodiazepines Scrn Negative 08/22/20 Unknown Urine Cocaine Screen Negative 08/22/20 Unknown U Marijuana (THC) Screen Negative 08/22/20 Unknown Drugs of Abuse Note Disclamer 08/22/20 Unknown Plasma/Serum Alcohol < 0.01 % (0-0.07) 08/21/20 21:15 Coronavirus (PCR) Negative (Negative) 08/22/20 Unknown Cohn/IV: Voiding Method Condom Catheter Active Medications - Current Medications Current Medications: Generic Name Dose Route Start Last Admin Trade Name Freq PRN Reason Stop Dose Admin Carvedilol 25 mg 08/25/20 10:00 08/27/20 22:43 Carvedilol 25 Mg Tab PO 25 mg BID ELIOT Administration Divalproex Sodium 250 mg 08/25/20 10:00 08/27/20 22:[address] 250 Mg Tab PO 250 mg BID ELIOT Administration Gabapentin 100 mg 08/25/20 10:00 08/28/20 02:43 Gabapentin 100 Mg Cap PO 100 mg Q8H ELIOT Administration Heparin Sodium (Porcine) 5,000 unit 08/24/20 14:00 08/28/20 08:05 Heparin 5,000 Unit/1 Ml Vial SUB-Q 5,000 unit Q8HR ELIOT Administration Hydralazine HCl 5 mg 08/23/20 21:39 08/25/20 17:11 Hydralazine 20 Mg/1 Ml Inj IV 5 mg Q4HR PRN Administration Hypertension Dextrose 1,000 mls @ 100 mls/hr 08/24/20 11:00 08/27/20 16:07 D5w IV 75 mls/hr DIRECT ELIOT Administration Isosorbide Dinitrate/Hydralazine 1 each 08/25/20 14:00 08/28/20 08:01 Isosorb Dinit/Hydralazine 20-37.5mg Tab PO Not Given Q8HR ELIOT Lorazepam 1 mg 08/24/20 08:01 08/26/20 11:48 Lorazepam 2 Mg/Ml Vial IV 1 mg Q4H PRN Administration Agitation Pentoxifylline 400 mg 08/25/20 10:00 08/27/20 22:42 Pentoxifylline Er 400 Mg Tab PO 400 mg Q12HR ELIOT Administration Sertraline HCl 50 mg 08/25/20 10:00 08/27/20 09:16 Sertraline 50 Mg Tab PO 50 mg QDAY ELIOT Administration Trazodone HCl 50 mg 08/23/20 22:00 08/27/20 22:43 Trazodone 50 Mg Tab PO 50 mg QHS ELIOT Administration
[2020-08-28] MEDS: PENTOXIFYLLINE ER 400 MG TAB PO SCH ×2 (09:03→21:51)
[2020-08-28] MEDS: carvediloL 25 MG TAB PO SCH ×2 (09:04→21:50)
[2020-08-28] MEDS: DIVALPROEX DR 250 MG TAB PO SCH ×2 (09:04→21:52)
[2020-08-28] MEDS: SERTRALINE 50 MG TAB PO SCH (09:04)
[2020-08-28 10:48] LABS: Calcium 8.9 mg/dL (8.4-10.2)
--- NOTE | 2020-08-28 13:15 | Progress Note ---
Assessment and Plan 1. Acute kidney injury: Vasomotor DANIKA in the setting of hypotension / shock. Renal US negative. Baseline renal function unknown. Continue IV fluids. Monitor renal function. Creatinine level fluctuates. Avoid nephrotoxic agents. Meds dosage based on GFR. 2. FEN: Hypernatremia, continue IV D5W, monitor. Hyperkalemia, improved, monitor. Monitor lytes and volume status. 3. Hypotension: BP is better. 4. UTI: S/p Abx. Seen by ID. 5. Chronic right lower extremity wound: Wound care. 6. Anemia, POA: Monitor. Subjective: Patient was seen and examined at the bedside. Examination: General appearance: well-developed, appears stated age, no distress HEENT: ATNC, MATILDE Neck: trachea midline Respiratory: Clear to Auscultation Heart: regular, S1S2, no murmur Gastrointestinal: soft, normoactive bowel sounds, not tender, not distended Integumentary: R leg covered with dressing, LE stasis changes noted Neurologic: alert, able to move extremities, confused Ext: no edema Subjective Date of service: 08/28/20 Objective - Vital Signs Vital signs: Vital Signs - 12hr 08/28/20 08/28/20 08/28/20 04:11 07:26 08:01 Temperature 99.0 F 98.9 F Pulse Rate 67 92 H Respiratory 19 20 Rate Blood Pressure 95/50 90/52 96/45 O2 Sat by Pulse 94 96 Oximetry 08/28/20 11:05 Temperature 98.8 F Pulse Rate 89 Respiratory 18 Rate Blood Pressure 121/76 O2 Sat by Pulse 98 Oximetry - Lab 08/23/20 04:14 08/28/20 09:13 Most recent lab results Calcium 8.9 mg/dL (8.4-10.2) 08/28/20 09:13 Urine Creatinine 189.1 mg/dL (0.1-20.0) H 08/25/20 Unknown Urine Sodium 10 mmol/L 08/25/20 Unknown Medications & Allergies - Medications Allergies/Adverse Reactions: Allergies No Known Allergies Allergy (Verified 08/21/20 21:39) Home Medications: Home Medications Medication Instructions Recorded Confirmed Last Taken Type AtorvaSTATin [Lipitor] 40 mg PO HS 08/26/20 08/26/20 Unknown History Divalproex ER [DepaKOTE ER] 250 mg PO DAILY 08/26/20 08/26/20 Unknown History Gabapentin [Neurontin] 100 mg PO Q8HR 08/26/20 08/26/20 Unknown History Isosorb Dinit/Hydralazine [Bidil 1 tab PO Q8H 08/26/20 08/26/20 Unknown History 20/37.5MG] Melatonin [Melatonin 5MG TAB] 5 mg PO HS 08/26/20 08/26/20 Unknown History Pentoxifylline 1 tab PO DAILY 08/26/20 08/26/20 Unknown History Sertraline HCl [Zoloft] 75 mg PO DAILY 08/26/20 08/26/20 Unknown History Torsemide [Demadex] 20 mg PO DAILY 08/26/20 08/26/20 Unknown History carvediloL [Coreg] 25 mg PO BID 08/26/20 08/26/20 Unknown History lisinopriL [Lisinopril] 40 mg PO DAILY 08/26/20 08/26/20 Unknown History Active Medications: Generic Name Dose Route Start Last Admin Trade Name Jakubq PRN Reason Stop Dose Admin Carvedilol 25 mg 08/25/20 10:00 08/28/20 09:04 Carvedilol 25 Mg Tab PO Not Given BID ELIOT Divalproex Sodium 250 mg 08/25/20 10:00 08/28/20 09:[address] 250 Mg Tab PO 250 mg BID ELIOT Administration Gabapentin 100 mg 08/25/20 10:00 08/28/20 09:03 Gabapentin 100 Mg Cap PO 100 mg Q8H ELIOT Administration Heparin Sodium (Porcine) 5,000 unit 08/24/20 14:00 08/28/20 08:05 Heparin 5,000 Unit/1 Ml Vial SUB-Q 5,000 unit Q8HR ELIOT Administration Hydralazine HCl 5 mg 08/23/20 21:39 08/25/20 17:11 Hydralazine 20 Mg/1 Ml Inj IV 5 mg Q4HR PRN Administration Hypertension Dextrose 1,000 mls @ 100 mls/hr 08/24/20 11:00 08/27/20 16:07 D5w IV 75 mls/hr DIRECT ELIOT Administration Isosorbide Dinitrate/Hydralazine 1 each 08/25/20 14:00 08/28/20 08:01 Isosorb Dinit/Hydralazine 20-37.5mg Tab PO Not Given Q8HR ELIOT Lorazepam 1 mg 08/24/20 08:01 08/26/20 11:48 Lorazepam 2 Mg/Ml Vial IV 1 mg Q4H PRN Administration Agitation Pentoxifylline 400 mg 08/25/20 10:00 08/28/20 09:03 Pentoxifylline Er 400 Mg Tab PO 400 mg Q12HR ELIOT Administration Sertraline HCl 50 mg 08/25/20 10:00 08/28/20 09:04 Sertraline 50 Mg Tab PO 50 mg QDAY ELIOT Administration Trazodone HCl 50 mg 08/23/20 22:00 08/27/20 22:43 Trazodone 50 Mg Tab PO 50 mg QHS ELIOT Administration
--- NOTE | 2020-08-28 16:52 | Consultation ---
History of Present Illness - Reason for Consult Consult date: 08/28/20 Reason for consult: Bipolar, Schizophrenia - Chief Complaint Chief complaint: Altered Mental Status - History of Present Psychiatric Illness Per Note: 60-year-old -[place] male with known history of dementia, CVA, CHF, COPD and hypertension resident of a senior living brought into the emergency room today with for evaluation of changes in mental status. He is said to be quite lethargic today and has not been getting out of bed. Patient normally goes out to smoke cigarettes but has been feeling quite weak today. Upon arrival of EMS patient was found to be hypotensive. He has a chronic foul-smelling ulcer on the right ankle. Patient unable to give very good history and most of the information was gotten from the ER staff. The patient is a 60 year old male who was admitted via the ED for changes in mental status. Patient was seen today resting in bed. Patient reports doing well. Patient did not report any prior psychiatric diagnosis. He denies been depressed or excessively nervous. patient eats and sleeps well. Patient denies Panic attacks. Patient denies denies hallucinations, and denies any current suicidal or homicidal thoughts. PAST PSYCHIATRIC HISTORY: Diagnoses: Unknown Suicide attempts or Self-harm behavior: denies Prior psychiatric hospitalizations: Denies Substance Abuse history: Denies Previous psychiatric medications tried: unknown Outpatient treatment: unknown PAST MEDICAL HISTORY: Family Psychiatric History: None reported or documented SOCIAL HISTORY Marital Status: single Living Arrangements: [facility] Employment Status: retired Access to guns/weapons: n/a Education: 12th grade History of Abuse: n/a Legal History: n/a REVIEW OF SYSTEMS Constitutional: Negative for weight loss ENT: Negative for stridor Respiratory: Negative for cough or hemoptysis All other systems reviewed and are negative MENTAL STATUS EXAMINATION General Appearance and Behavior: Age appropriate, good hygiene, wearing appropriate clothes, uncooperative polite with questioning. Cooperation: cooperative Psychomotor Behavior: Psychomotor agitation Mood: "Ok" Affect and affective range: congruent Thought Process: goal directed Thought Content: impulsive Speech: Normal volume, Regular rate and rhythm Intellectual Functioning: average Suicidal Ideation: Denied Homicidal Ideation: Denied hallucination: Denied Impulse Control: impaired Insight and Judgment: limited Memory: memory impaired Attention:Distractible Orientation: Alert and oriented Treatment Plan: Continue current psychotropic medications. Patient should be compliant with medications and not to use drugs and not to drink alcohol. PSYCHOTHERAPY: Supportive psychotherapy provided MEDICAL: Per primary team DELIRIUM PRECAUTIONS: Please re-orient patient frequently, keep lights on during the day, and minimize benzodiazepines and opiates as these medications could worsen patient's confusion. CSM CONSULTANT: Per medical team DISPOSITION: Do not recommend acute inpatient psychiatric hospitalization at this time FOLLOW-UP: Patient to follow up with psychiatry outpatient post discharge. Will sign off Thank you for the consult. Please contact with any questions and/or concerns. Medications and Allergies Allergies Allergy/AdvReac Type Severity Reaction Status Date / Time No Known Allergies Allergy Verified 08/21/20 21:39 Home Medications Medication Instructions Recorded Confirmed Last Taken Type AtorvaSTATin [Lipitor] 40 mg PO HS 08/26/20 08/26/20 Unknown History Divalproex ER [DepaKOTE ER] 250 mg PO DAILY 08/26/20 08/26/20 Unknown History Gabapentin [Neurontin] 100 mg PO Q8HR 08/26/20 08/26/20 Unknown History Isosorb Dinit/Hydralazine [Bidil 1 tab PO Q8H 08/26/20 08/26/20 Unknown History 20/37.5MG] Melatonin [Melatonin 5MG TAB] 5 mg PO HS 08/26/20 08/26/20 Unknown History Pentoxifylline 1 tab PO DAILY 08/26/20 08/26/20 Unknown History Sertraline HCl [Zoloft] 75 mg PO DAILY 08/26/20 08/26/20 Unknown History Torsemide [Demadex] 20 mg PO DAILY 08/26/20 08/26/20 Unknown History carvediloL [Coreg] 25 mg PO BID 08/26/20 08/26/20 Unknown History lisinopriL [Lisinopril] 40 mg PO DAILY 08/26/20 08/26/20 Unknown History Active Meds: Active Medications Carvedilol (Carvedilol 25 Mg Tab) 25 mg PO BID [facility] Last Admin: 08/28/20 09:04 Dose: Not Given Documented by: Divalproex Sodium (Divalproex Dr 250 Mg Tab) 250 mg PO BID [facility] Last Admin: 08/28/20 09:04 Dose: 250 mg Documented by: Gabapentin (Gabapentin 100 Mg Cap) 100 mg PO Q8H [facility] Last Admin: 08/28/20 09:03 Dose: 100 mg Documented by: Heparin Sodium (Porcine) (Heparin 5,000 Unit/1 Ml Vial) 5,000 unit SUB-Q Q8HR [facility] Last Admin: 08/28/20 14:07 Dose: 5,000 unit Documented by: Hydralazine HCl (Hydralazine 20 Mg/1 Ml Inj) 5 mg IV Q4HR PRN PRN Reason: Hypertension Last Admin: 08/25/20 17:11 Dose: 5 mg Documented by: Dextrose (D5w) 1,000 mls @ 100 mls/hr IV DIRECT [facility] Last Admin: 08/27/20 16:07 Dose: 75 mls/hr Documented by: Isosorbide Dinitrate/Hydralazine (Isosorb Dinit/Hydralazine 20-37.5mg Tab) 1 each PO Q8HR [facility] Last Admin: 08/28/20 14:06 Dose: Not Given Documented by: Lorazepam (Lorazepam 2 Mg/Ml Vial) 1 mg IV Q4H PRN PRN Reason: Agitation Last Admin: 08/26/20 11:48 Dose: 1 mg Documented by: Pentoxifylline (Pentoxifylline Er 400 Mg Tab) 400 mg PO Q12HR [facility] Last Admin: 08/28/20 09:03 Dose: 400 mg Documented by: Sertraline HCl (Sertraline 50 Mg Tab) 50 mg PO QDAY [facility] Last Admin: 08/28/20 09:04 Dose: 50 mg Documented by: Trazodone HCl (Trazodone 50 Mg Tab) 50 mg PO QHS [facility] Last Admin: 08/27/20 22:43 Dose: 50 mg Documented by: Mental Status Exam - Vital signs Last Vital Signs Temp 97.9 F 08/28/20 15:47 Pulse 82 08/28/20 15:47 Resp 20 08/28/20 15:47 BP 118/79 08/28/20 15:47 Pulse Ox 99 08/28/20 15:47 Results Result Diagrams: 08/23/20 04:14 08/28/20 09:13 Abnormal lab results 08/28/20 Range/Units 09:13 BUN 26 H (9-20) mg/dL Creatinine 1.5 H (0.8-1.3) mg/dL Glucose 103 H (75-100) mg/dL All other labs normal.
[2020-08-28] MEDS: LORazepam 2 MG/ML VIAL IV PRN (19:17)
[2020-08-28] MEDS: oxyCODONE /ACETAMINOPHEN 5-325MG TAB PO PRN (19:45)
[2020-08-28] MEDS: traZODone 50 MG TAB PO SCH (21:52)
[2020-08-29] MEDS: GABAPENTIN 100 MG CAP PO SCH ×2 (01:10→10:07)
[2020-08-29] MEDS: LORazepam 2 MG/ML VIAL IV PRN (01:10)
[2020-08-29 05:04] LABS: Calcium 9.1 mg/dL (8.4-10.2)
[2020-08-29] MEDS: ISOSORB DINIT/HYDRALAZINE 20-37.5MG TAB PO SCH (06:08)
[2020-08-29] MEDS: HEPARIN 5,000 UNIT/1 ML VIAL SUB-Q SCH (06:08)
[2020-08-29] MEDS: oxyCODONE /ACETAMINOPHEN 5-325MG TAB PO PRN (06:14)
--- NOTE | 2020-08-29 09:57 | Progress Note ---
Assessment and Plan 1. Acute kidney injury: Vasomotor DANIKA in the setting of hypotension / shock. Renal US negative. Baseline renal function unknown. Continue IV fluids. Monitor renal function. Creatinine level is better. Avoid nephrotoxic agents. Meds dosage based on GFR. 2. FEN: Hypernatremia, improved, monitor. Hyperkalemia, improved, monitor. Monitor lytes and volume status. 3. Hypotension: BP is better. 4. UTI: S/p Abx. Seen by ID. 5. Chronic right lower extremity wound: Wound care. 6. Anemia, POA: Monitor. Subjective: Patient was seen and examined at the bedside. Examination: General appearance: well-developed, appears stated age, no distress HEENT: ATNC, MATILDE Neck: trachea midline Respiratory: Clear to Auscultation Heart: regular, S1S2, no murmur Gastrointestinal: soft, normoactive bowel sounds, not tender, not distended Integumentary: R leg covered with dressing, LE stasis changes noted Neurologic: alert, able to move extremities, confused Ext: no edema Subjective Date of service: 08/29/20 Objective - Vital Signs Vital signs: Vital Signs - 12hr 08/28/20 08/29/20 08/29/20 23:10 04:26 07:49 Temperature 98.8 F 98.9 F 98.9 F Pulse Rate 78 87 86 Respiratory 18 18 16 Rate Blood Pressure 95/54 119/67 Blood Pressure 126/78 [Right] O2 Sat by Pulse 94 100 96 Oximetry - Lab 08/23/20 04:14 08/29/20 04:18 Most recent lab results Calcium 9.1 mg/dL (8.4-10.2) 08/29/20 04:18 Urine Creatinine 189.1 mg/dL (0.1-20.0) H 08/25/20 Unknown Urine Sodium 10 mmol/L 08/25/20 Unknown Medications & Allergies - Medications Allergies/Adverse Reactions: Allergies No Known Allergies Allergy (Verified 08/21/20 21:39) Home Medications: Home Medications Medication Instructions Recorded Confirmed Last Taken Type AtorvaSTATin [Lipitor] 40 mg PO HS 08/26/20 08/26/20 Unknown History Divalproex ER [Depakote ER] 250 mg PO DAILY 08/26/20 08/26/20 Unknown History Gabapentin 100 mg PO Q8HR 08/26/20 08/26/20 Unknown History Isosorb Dinit/Hydralazine [Bidil 1 tab PO Q8H 08/26/20 08/26/20 Unknown History 20/37.5MG] Melatonin [Melatonin 5MG TAB] 5 mg PO HS 08/26/20 08/26/20 Unknown History Pentoxifylline 1 tab PO DAILY 08/26/20 08/26/20 Unknown History Sertraline HCl [Zoloft] 75 mg PO DAILY 08/26/20 08/26/20 Unknown History Torsemide [Demadex] 20 mg PO DAILY 08/26/20 08/26/20 Unknown History carvediloL [Coreg] 25 mg PO BID 08/26/20 08/26/20 Unknown History lisinopriL [Lisinopril] 40 mg PO DAILY 08/26/20 08/26/[address] [Nora Mcmullen] 250 mg PO BID tablet 08/29/20 Unknown Rx Gabapentin 100 mg PO Q8H capsule 08/29/20 Unknown Rx Isosorb Dinit/Hydralazine [Bidil 1 each PO Q8HR tablet 08/29/20 Unknown Rx 20/37.5MG] Pentoxifylline [TRENtal] 400 mg PO Q12HR tablet 08/29/20 Unknown Rx Sertraline [Zoloft] 50 mg PO QDAY tablet 08/29/20 Unknown Rx carvediloL [Coreg] 25 mg PO BID tablet 08/29/20 Unknown Rx oxyCODONE /ACETAMINOPHEN [Percocet 1 tab PO Q6H PRN #30 tablet 08/29/20 Unknown Rx 5/325 mg] traZODone [Desyrel] 50 mg PO QHS tablet 08/29/20 Unknown Rx Active Medications: Generic Name Dose Route Start Last Admin Trade Name Freq PRN Reason Stop Dose Admin Carvedilol 25 mg 08/25/20 10:00 08/28/20 21:50 Carvedilol 25 Mg Tab PO 25 mg BID ELIOT Administration Divalproex Sodium 250 mg 08/25/20 10:00 08/28/20 21:[address] 250 Mg Tab PO 250 mg BID ELIOT Administration Gabapentin 100 mg 08/25/20 10:00 08/29/20 01:10 Gabapentin 100 Mg Cap PO 100 mg Q8H ELIOT Administration Heparin Sodium (Porcine) 5,000 unit 08/24/20 14:00 08/29/20 06:08 Heparin 5,000 Unit/1 Ml Vial SUB-Q 5,000 unit Q8HR ELIOT Administration Hydralazine HCl 5 mg 08/23/20 21:39 08/25/20 17:11 Hydralazine 20 Mg/1 Ml Inj IV 5 mg Q4HR PRN Administration Hypertension Dextrose 1,000 mls @ 100 mls/hr 08/24/20 11:00 08/28/20 19:13 D5w IV Infused DIRECT ELIOT Infusion Isosorbide Dinitrate/Hydralazine 1 each 08/25/20 14:00 08/29/20 06:08 Isosorb Dinit/Hydralazine 20-37.5mg Tab PO 1 each Q8HR ELIOT Administration Lorazepam 1 mg 08/24/20 08:01 08/29/20 01:10 Lorazepam 2 Mg/Ml Vial IV 1 mg Q4H PRN Administration Agitation Oxycodone/Acetaminophen 1 tab 08/28/20 19:25 08/29/20 06:14 Oxycodone /Acetaminophen 5-325mg Tab PO 1 tab Q6H PRN Administration Pain, Moderate (4-6) Pentoxifylline 400 mg 08/25/20 10:00 08/28/20 21:51 Pentoxifylline Er 400 Mg Tab PO 400 mg Q12HR ELIOT Administration Sertraline HCl 50 mg 08/25/20 10:00 08/28/20 09:04 Sertraline 50 Mg Tab PO 50 mg QDAY ELIOT Administration Trazodone HCl 50 mg 08/23/20 22:00 08/28/20 21:52 Trazodone 50 Mg Tab PO 50 mg QHS ELIOT Administration
[2020-08-29] MEDS: carvediloL 25 MG TAB PO SCH (10:07)
[2020-08-29] MEDS: SERTRALINE 50 MG TAB PO SCH (10:07)
[2020-08-29] MEDS: DIVALPROEX DR 250 MG TAB PO SCH (10:07)
[2020-08-29] MEDS: PENTOXIFYLLINE ER 400 MG TAB PO SCH (10:07)
--- NOTE | 2020-08-29 11:53 | Discharge Summary ---
Providers - Providers Date of Admission: 08/22/20 12:23 Date of discharge: 08/29/20 Attending physician: ASHLYN WOLFE 08/21/20 23:01 Consult to Physician [CONS] Routine Comment: Consulting Provider: SREE MINOR Physician Instructions: Reason For Exam: acute on chronic renal failure 08/22/20 01:22 Consult to Wound/ET Nurse [CONS] Routine Reason For Exam: wound eval-right ankle 08/22/20 09:08 Consult to Physician [CONS] Routine Comment: Consulting Provider: CONNIE SHERIDAN Physician Instructions: Reason For Exam: INFECTED ULCER 08/22/20 16:41 Consult Geriatric-Psych [CONS] Routine Consulting Provider: Reason For Exam: AMS/Agitation 08/25/20 09:12 Consult to Physician [CONS] Routine Comment: Consulting Provider: LESLY NICOLE Physician Instructions: Reason For Exam: chronic wound with poor healing 08/26/20 12:29 Consult to Mental Health [CONS] Routine Reason For Exam: Bipolar/schizophrenia 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 Chest x-ray negative Doppler ESDRAS no evidence of significant PAD Bilateral lower extremity Doppler negative for DVT Hospital course: Patient 60-year-old with a history of CVA, congestive heart failure, COPD and hypertension [facility] from [facility] with an acute episode of lethargy and confusion. Patient had changes in mental status. Used to go out and smoke and now was no longer doing so. Patient was brought in and worked up found to have foul-smelling ulcer on right ankle. Patient admitted for sepsis. Hospital course was complicated by patient having agitation in which she was placed on CIWA protocol and also obtained a psychiatric evaluation. Psychiatric evaluation did not recommend any acute psychiatric facility admission. Thought could be done on outpatient basis patient also noted to be much more calm cooperative at this time. Patient was also diagnosed with a urinary tract infection was treated with antibiotics as well. 08/22: ID consulted, awaiting wound management, may need Debridement. Sitter requested. Continue supportive care. 08/23/20 patient is seen and examined. Patient is confused. Patient is try to get out of the bed. Continue IV ceftriaxone. Urine culture. Wound care evaluation. Potassium is 5.5. Patient is given Kayexalate 30 g p.o. x1 dose. Recheck CBC BMP in the morning. Continue supportive care. 08/24/20 patient is seen and examined. Patient is confused. Patient is try to get out of bed. We have started on soft restraint and Ativan as needed. Continue IV ceftriaxone. Tomorrow we will change the antibiotic to p.o. Augmentin. Follow urine culture. Wound care evaluation. Recheck BMP in the morning. Continue supportive care. 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 08/25: Continue supportive care, Still with elevated Potassium and Na. Will give additional kayxalate and also Monitor. Will restart some home medications, patient is normally on Torsemide and BIDIL, coreg among others, will restart except Nephrotoxic meds, renal function showing some improvement. Continue D5W due to the noted HYPERNATREMIA Continue wound care, will obtain vascular evaluation prior to discharge ID following anticipate discharge in a.m. if no further input by vascular. I restarted some of his home psych medications anticipate that this will help improve his mentation so we can take him off restraints. 08/26: Continue supportive care, will obtain Psych consult to assist with management. Vascular work up ongoing. Patient on restriants for safety but if baseline, will discontinue and follow up outpatient. 08/27/2020; patient was evaluated by ID and wound care and outpatient minocycline. Vascular consulted and ordered arterial Doppler and will evaluate the patient after that. Nephrology is following, hyperkalemia resolved. Patient is hypernatremic and will continue with D5W at 75. Patient is confused and on restraints. Patient is still on restraints and we going to take off the restraints and see how he is doing. 08/28/2020; patient was evaluated by vascular and recommend outpatient venous study and dermatologic evaluation. ID recommendations appreciated. Will follow BMP. Patient is on CIWA protocol for alcohol withdrawal. Disposition: [id number]/[id number] Final Discharge Diagnosis (Prints w/discharge instructions): Acute sepsis secondary to infected ulcer and UTI. - Discharge Diagnoses (1) Acute on chronic kidney failure Status: Acute Qualifiers: Acute renal failure type: unspecified Chronic kidney disease stage: unspecified stage Qualified Code(s): N17.9 - Acute kidney failure, unspecified; N18.9 - Chronic kidney disease, unspecified (2) Altered mental status Status: Acute Qualifiers: Altered mental status type: unspecified Qualified Code(s): R41.82 - Altered mental status, unspecified (3) Hypotension Status: Acute Qualifiers: Hypotension type: unspecified hypotension type Qualified Code(s): I95.9 - Hypotension, unspecified (4) Sepsis Status: Acute Qualifiers: Sepsis type: sepsis due to unspecified organism Sepsis acute organ dysfunction status: with acute organ dysfunction Severe sepsis acute organ dysfunction type: encephalopathy Severe sepsis shock status: without septic shock Qualified Code(s): A41.9 - Sepsis, unspecified organism; R65.20 - Severe sepsis without septic shock; G93.40 - Encephalopathy, unspecified (5) UTI (urinary tract infection) Status: Acute Qualifiers: Urinary tract infection type: acute cystitis Hematuria presence: with hematuria Qualified Code(s): N30.01 - Acute cystitis with hematuria (6) Ulcer of right ankle Status: Acute Qualifiers: Non-pressure ulcer stage: unspecified non-pressure ulcer stage Qualified Code(s): L97.319 - Non-pressure chronic ulcer of right ankle with unspecified severity Core Measure Documentation - Palliative Care Palliative Care/ Comfort Measures: Not Applicable - Core Measures Any of the following diagnoses?: none Exam - Constitutional Vitals: Temp Pulse Resp BP Pulse Ox 98.9 F 86 16 119/67 96 08/29/20 07:49 08/29/20 10:07 08/29/20 07:49 08/29/20 10:07 08/29/20 07:49 General appearance: Present: no acute distress - EENT Eyes: Present: PERRL ENT: hearing intact, clear oral mucosa - Neck Neck: Present: supple, normal ROM - Respiratory Respiratory: bilateral: CTA - Cardiovascular Heart Sounds: Present: S1 & S2. Absent: rub, click - Extremities Extremity abnormal: edema, other (Chronic leg ulcer bandage no exudate.) Peripheral Pulses: within normal limits - Abdominal General gastrointestinal: Present: soft, non-tender, non-distended, normal bowel sounds - Musculoskeletal Musculoskeletal: generalized weakness - Psychiatric Psychiatric: appropriate mood/affect, agitated, other (Somewhat agitated and not cooperative. Otherwise stable.) Plan Activity: up only with assistance Weight Bearing Status: Partial Weight Bearing Diet: low salt Special Instructions: other (Rehab) Follow up with: PRIMARY CAREMD [Primary Care Provider] - 3-5 Days Prescriptions: RX: oxyCODONE /ACETAMINOPHEN [Percocet 5/325 mg] 1 tab PO Q6H PRN #30 tablet PRN Reason: Pain, Moderate (4-6)
[2020-08-29 13:00] VITALS: BP 92/56
== END 2020-08-29 15:15 | DRG 871 ==
LOC: ED 20:41 → 3A 22:55 → 3B-SURG 23:58 → OBSVTOIN 08-22 12:23 → UNDODISIN 08-23 14:00
PROVIDERS: ADMIT Internal Medicine Geriatric Medicine; ATTEND Internal Medicine
DX: A41.9 Sepsis, unspecified organism (principal); N17.0 Acute kidney failure with tubular necrosis; L97.319 Non-pressure chronic ulcer of right ankle with unspecified severity; I13.0 Hypertensive heart and chronic kidney disease with heart failure and stage 1 through stage 4 chronic kidney disease, or unspecified chronic kidney disease; N30.01 Acute cystitis with hematuria; E87.0 Hyperosmolality and hypernatremia; G93.40 Encephalopathy, unspecified; L88 Pyoderma gangrenosum; N18.9 Chronic kidney disease, unspecified; F03.90 Unspecified dementia, unspecified severity, without behavioral disturbance, psychotic disturbance, mood disturbance, and anxiety; I50.9 Heart failure, unspecified; J44.9 Chronic obstructive pulmonary disease, unspecified; S81.801A Unspecified open wound, right lower leg, initial encounter; D64.9 Anemia, unspecified; I95.9 Hypotension, unspecified; Z20.822 Contact with and (suspected) exposure to COVID-19; R65.20 Severe sepsis without septic shock; E87.5 Hyperkalemia; Z86.73 Personal history of transient ischemic attack (TIA), and cerebral infarction without residual deficits; Z79.899 Other long term (current) drug therapy; Y93.89 Activity, other specified; Y92.89 Other specified places as the place of occurrence of the external cause; Y99.8 Other external cause status
CPT/HCPCS: 36415; 70450; 71045; 76770; 80048; 80053; 80307; 80320; 81001; 82140; 82570; 83935; 84300; 85025; 85027; 85610; 87040; 87086; 89050; 93005; 93922; 93925; 93970; 96361; 96365; G0378; G0480; J0360; J0696; J1644; J2060; J2270; J2405; J7030; J7070; U0003

== ENCOUNTER 2020-12-31 12:24 | Inpatient (IN) | payer MEDICARE ==
--- NOTE | 2020-12-31 14:32 | Emergency Department Report ---
ED Extremity Problem HPI - General Chief complaint: Extremity Problem,Nontraumatic Stated complaint: WOUND BANDAGE Time Seen by Provider: 12/31/20 12:30 Source: patient Mode of arrival: Stretcher Limitations: No Limitations - History of Present Illness Initial comments: 60-year-old male, history of hypertension, COPD, CHF, CKD, for vascular disease, presents to ED for evaluation of right leg wound. According to patient's daughter, patient in [facility] for 1 year. Daughter states patient kept wandering away from the fdc and fdc stated that they could no longer care for him. Patient's daughter picked him up from the fdc 3 weeks ago and paid for a hotel room for him to stay in. Wound care was supposedly seeing patient regularly and changing his dressings during that time. Daughter states she went to check on patient today and noticed that patient had a foul smell coming from his wound on the dressings. 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 States she is unable to care for her father herself. Upon removing dressings from patient's leg, maggots are noted to be present. Patient sent to [facility] room. Complaint: other -: unknown Location: right History of Same: Yes -: No fever Quality: aching Consistency: constant Improves with: nothing Worsens with: nothing Associated Symptoms: denies: fever - Related Data Home Medications Medication Instructions Recorded Confirmed Last Taken AtorvaSTATin [Lipitor] 40 mg PO HS 08/26/20 08/26/20 Unknown Divalproex ER [Depakote ER] 250 mg PO DAILY 08/26/20 08/26/20 Unknown Gabapentin 100 mg PO Q8HR 08/26/20 08/26/20 Unknown Isosorb Dinit/Hydralazine [Bidil 1 tab PO Q8H 08/26/20 08/26/20 Unknown 20/37.5MG] Melatonin [Melatonin 5MG TAB] 5 mg PO HS 08/26/20 08/26/20 Unknown Pentoxifylline 1 tab PO DAILY 08/26/20 08/26/20 Unknown Sertraline HCl [Zoloft] 75 mg PO DAILY 08/26/20 08/26/20 Unknown Torsemide [Demadex] 20 mg PO DAILY 08/26/20 08/26/20 Unknown carvediloL [Coreg] 25 mg PO BID 08/26/20 08/26/20 Unknown lisinopriL [Lisinopril] 40 mg PO DAILY 08/26/20 08/26/20 Unknown Previous Rx's Medication Instructions Recorded Last Taken Type Divalproex Dr [Depakote Dr] 250 mg PO BID tablet 08/29/20 Unknown Rx Gabapentin 100 mg PO Q8H capsule 08/29/20 Unknown Rx Isosorb Dinit/Hydralazine [Bidil 1 each PO Q8HR tablet 08/29/20 Unknown Rx 20/37.5MG] Pentoxifylline [TRENtal] 400 mg PO Q12HR tablet 08/29/20 Unknown Rx Sertraline [Zoloft] 50 mg PO QDAY tablet 08/29/20 Unknown Rx carvediloL [Coreg] 25 mg PO BID tablet 08/29/20 Unknown Rx oxyCODONE /ACETAMINOPHEN [Percocet 1 tab PO Q6H PRN #30 tablet 08/29/20 Unknown Rx 5/325 mg] traZODone [Desyrel] 50 mg PO QHS tablet 08/29/20 Unknown Rx Allergies Allergy/AdvReac Type Severity Reaction Status Date / Time No Known Allergies Allergy Verified 08/21/20 21:39 ED Review of Systems ROS: Stated complaint: WOUND BANDAGE Other details as noted in HPI Comment: All other systems reviewed and negative Constitutional: denies: fever Musculoskeletal: as per HPI ED Past Medical Hx - Past Medical History Previous Medical History?: Yes Hx Hypertension: Yes Hx CVA: Yes Hx Congestive Heart Failure: Yes Hx Renal Disease: Yes Hx COPD: Yes Hx Dementia: Yes Additional medical history: Chronic ulcers, PVD, diastolic heart failure, vascular dementia, weakness, falls, - Social History Smoking Status: Current Every Day Smoker Substance Use Type: None - Medications Home Medications: Home Medications Medication Instructions Recorded Confirmed Last Taken Type AtorvaSTATin [Lipitor] 40 mg PO HS 08/26/20 08/26/20 Unknown History Divalproex ER [Depakote ER] 250 mg PO DAILY 08/26/20 08/26/20 Unknown History Gabapentin 100 mg PO Q8HR 08/26/20 08/26/20 Unknown History Isosorb Dinit/Hydralazine [Bidil 1 tab PO Q8H 08/26/20 08/26/20 Unknown History 20/37.5MG] Melatonin [Melatonin 5MG TAB] 5 mg PO HS 08/26/20 08/26/20 Unknown History Pentoxifylline 1 tab PO DAILY 08/26/20 08/26/20 Unknown History Sertraline HCl [Zoloft] 75 mg PO DAILY 08/26/20 08/26/20 Unknown History Torsemide [Demadex] 20 mg PO DAILY 08/26/20 08/26/20 Unknown History carvediloL [Coreg] 25 mg PO BID 08/26/20 08/26/20 Unknown History lisinopriL [Lisinopril] 40 mg PO DAILY 08/26/20 08/26/[address] [Depakote Dr] 250 mg PO BID tablet 08/29/20 Unknown Rx Gabapentin 100 mg PO Q8H capsule 08/29/20 Unknown Rx Isosorb Dinit/Hydralazine [Bidil 1 each PO Q8HR tablet 08/29/20 Unknown Rx 20/37.5MG] Pentoxifylline [TRENtal] 400 mg PO Q12HR tablet 08/29/20 Unknown Rx Sertraline [Zoloft] 50 mg PO QDAY tablet 08/29/20 Unknown Rx carvediloL [Coreg] 25 mg PO BID tablet 08/29/20 Unknown Rx oxyCODONE /ACETAMINOPHEN [Percocet 1 tab PO Q6H PRN #30 tablet 08/29/20 Unknown Rx 5/325 mg] traZODone [Desyrel] 50 mg PO QHS tablet 08/29/20 Unknown Rx ED Physical Exam - General Limitations: No Limitations General appearance: alert, in no apparent distress, other (Appears unkempt) - Head Head exam: Present: atraumatic, normocephalic - Eye Eye exam: Present: normal appearance - ENT ENT exam: Present: normal exam - Neck Neck exam: Present: normal inspection - Respiratory Respiratory exam: Present: normal lung sounds bilaterally. Absent: respiratory distress - Cardiovascular Cardiovascular Exam: Present: regular rate, normal rhythm - GI/Abdominal GI/Abdominal exam: Present: soft. Absent: distended, tenderness - Extremities Exam Extremities exam: Present: other (Swelling to right lower leg and foot with ulcerations, purulent discharge to the posterior aspect of the right lower leg; foul smell noted) - Neurological Exam Neurological exam: Present: alert, oriented X3 - Psychiatric Psychiatric exam: Present: normal affect, normal mood ED Course Vital Signs 12/31/20 14:01 Temperature 98.1 F Pulse Rate 79 Respiratory 16 Rate Blood Pressure 115/68 [Right] O2 Sat by Pulse 100 Oximetry ED Medical Decision Making - Lab Data Result diagrams: 12/31/20 14:46 12/31/20 14:46 Critical care attestation.: If time is entered above; I have spent that time in minutes in the direct care of this critically ill patient, excluding procedure time. ED Disposition Clinical Impression: Wound infection Disposition: ADMITTED INPATIENT Is pt being admited?: Yes Condition: Stable Referrals: PRIMARY CARE, [Primary Care Provider] - 3-5 Days Time of Disposition: 15:47
[2020-12-31 15:17] LABS: Basophils % (Auto) 0.3 % (0.0-1.8); Eosinophils # (Auto) 0.1 K/mm3 (0.0-0.4); Eosinophils % (Auto) 0.8 % (0.0-4.3); Hematocrit 31.3 % (35.5-45.6); Hemoglobin 10.3 gm/dl (11.8-15.2); Lymphocytes # (Auto) 1.3 K/mm3 (1.2-5.4); Mean Corpuscular HGB Conc 33 % (32-34); Mean Corpuscular Volume 81 fl (84-94); Monocytes # (Auto) 0.5 K/mm3 (0.0-0.8); Monocytes % (Auto) 6.8 % (0.0-7.3); Platelet Count 340 K/mm3 (140-440); Red Blood Count 3.86 M/mm3 (3.65-5.03); Red Cell Distribution Width 17.3 % (13.2-15.2)
[2020-12-31 15:25] LABS: BUN/Creatinine Ratio 13; Blood Urea Nitrogen 16 mg/dL (9-20); Calcium 9.1 mg/dL (8.4-10.2); Hemolysis Index 3
--- NOTE | 2020-12-31 23:28 | History and Physical Report ---
History of Present Illness Date of examination: 12/31/20 Date of admission: 12/31/20 15:47 Chief complaint: Right leg wound for unknown. Time History of present illness: 60-year-old male with history of hypertension, COPD, CHF, CKD, peripheral arterial disease sent in from the intermediate for right leg wound. Patient has been wandering away from the intermediate and intermediate informed the daughter that they can no longer take care of him. Daughter. The patient intermediate 3 weeks ago and put him in a hotel room to be taken care of. Patient had a right wound care which was not being taken care of. At the time of presentation to ER patient had a large wound on the back of the right calf with maggots in the wound. This is a stage IV wound. Purulent discharge and foul-smelling. Patient daughter who is a truck repair supervisor and states that she cannot take care of her father hence put him on the hotel room with arrangements for wound care and ADLs. - Past Medical History Previous Medical History?: Yes Hx Hypertension: Yes Hx CVA: Yes Hx Congestive Heart Failure: Yes Hx Renal Disease: Yes Hx COPD: Yes Hx Dementia: Yes Additional medical history: Chronic ulcers, PVD, diastolic heart failure, vascular dementia, weakness, falls, - Social History Smoking Status: Current Every Day Smoker Substance Use Type: None - Medications Home Medications: Home Medications Medication Instructions Recorded Confirmed Last Taken Type AtorvaSTATin [Lipitor] 40 mg PO HS 08/26/20 08/26/20 Unknown History Divalproex ER [Depakote ER] 250 mg PO DAILY 08/26/20 08/26/20 Unknown History Gabapentin 100 mg PO Q8HR 08/26/20 08/26/20 Unknown History Isosorb Dinit/Hydralazine [Bidil 1 tab PO Q8H 08/26/20 08/26/20 Unknown History 20/37.5MG] Melatonin [Melatonin 5MG TAB] 5 mg PO HS 08/26/20 08/26/20 Unknown History Pentoxifylline 1 tab PO DAILY 08/26/20 08/26/20 Unknown History Sertraline HCl [Zoloft] 75 mg PO DAILY 08/26/20 08/26/20 Unknown History Torsemide [Demadex] 20 mg PO DAILY 08/26/20 08/26/20 Unknown History carvediloL [Coreg] 25 mg PO BID 08/26/20 08/26/20 Unknown History lisinopriL [Lisinopril] 40 mg PO DAILY 08/26/20 08/26/[address] [Depakote Dr] 250 mg PO BID tablet 08/29/20 Unknown Rx Gabapentin 100 mg PO Q8H capsule 08/29/20 Unknown Rx Isosorb Dinit/Hydralazine [Bidil 1 each PO Q8HR tablet 08/29/20 Unknown Rx 20/37.5MG] Pentoxifylline [TRENtal] 400 mg PO Q12HR tablet 08/29/20 Unknown Rx Sertraline [Zoloft] 50 mg PO QDAY tablet 08/29/20 Unknown Rx carvediloL [Coreg] 25 mg PO BID tablet 08/29/20 Unknown Rx oxyCODONE /ACETAMINOPHEN [Percocet 1 tab PO Q6H PRN #30 tablet 08/29/20 Unknown Rx 5/325 mg] traZODone [Desyrel] 50 mg PO QHS tablet 08/29/20 Unknown Rx Review of Systems ROS: Stated complaint: WOUND BANDAGE Other details as noted in HPI Comment: All other systems reviewed and negative Constitutional: denies: fever Musculoskeletal: as per HPI Medications and Allergies Allergies Allergy/AdvReac Type Severity Reaction Status Date / Time No Known Allergies Allergy Verified 08/21/20 21:39 Home Medications Medication Instructions Recorded Confirmed Last Taken Type AtorvaSTATin [Lipitor] 40 mg PO HS 08/26/20 01/01/21 12/30/20 History Divalproex ER [Depakote ER] 250 mg PO DAILY 08/26/20 01/01/21 12/30/20 History Gabapentin 100 mg PO Q8HR 08/26/20 01/01/21 12/30/20 History Isosorb Dinit/Hydralazine [Bidil 1 tab PO Q8H 08/26/20 01/01/21 12/30/20 History 20/37.5MG] Melatonin [Melatonin 5MG TAB] 5 mg PO HS 08/26/20 01/01/21 12/30/20 History Pentoxifylline 1 tab PO DAILY 08/26/20 01/01/21 12/30/20 History Sertraline HCl [Zoloft] 75 mg PO DAILY 08/26/20 01/01/2121 History Torsemide [Demadex] 20 mg PO DAILY 08/26/20 01/01/21 12/30/20 History carvediloL [Coreg] 25 mg PO BID 08/26/20 01/01/21 12/30/20 History lisinopriL [Lisinopril] 40 mg PO DAILY 08/26/20 01/01/21 12/30/20 History Divalproex [Nora Mcmullen] 250 mg PO BID tablet 08/29/20 01/01/21 12/30/20 Rx Gabapentin 100 mg PO Q8H capsule 08/29/20 12/31/20 Rx Isosorb Dinit/Hydralazine [Bidil 1 each PO Q8HR tablet 08/29/20 01/01/21 12/30/20 Rx 20/37.5MG] Pentoxifylline [TRENtal] 400 mg PO Q12HR tablet 08/29/20 01/01/21 12/30/20 Rx Sertraline [Zoloft] 50 mg PO QDAY tablet 08/29/20 01/01/21 12/30/20 Rx carvediloL [Coreg] 25 mg PO BID tablet 08/29/20 01/01/21 12/30/20 Rx oxyCODONE /ACETAMINOPHEN [Percocet 1 tab PO Q6H PRN #30 tablet 08/29/20 01/01/21 12/30/20 Rx 5/325 mg] traZODone [Desyrel] 50 mg PO QHS tablet 08/29/20 01/01/21 12/30/20 Rx Exam - Constitutional Vitals: Temp Pulse Resp BP Pulse Ox 99.5 F 103 H 18 108/67 99 12/31/20 22:39 12/31/20 22:39 12/31/20 22:39 12/31/20 22:39 12/31/20 22:39 General appearance: Present: no acute distress, well-nourished - EENT Eyes: Present: PERRL ENT: hearing intact, clear oral mucosa - Neck Neck: Present: supple, normal ROM - Respiratory Respiratory effort: normal Respiratory: bilateral: CTA - Cardiovascular Heart rate: 78 Rhythm: regular Heart Sounds: Present: S1 & S2. Absent: rub, click - Extremities Extremities: pulses symmetrical, No edema, abnormal (Large right calf wound 10 cm x 8 cm and stage IV with purulent drainage and maggots initially) Extremity abnormal: other (Same as above) Peripheral Pulses: within normal limits - Abdominal General gastrointestinal: Present: soft, non-tender, non-distended, normal bowel sounds Male genitourinary: Present: normal - Integumentary Integumentary: Present: clear, warm, dry - Musculoskeletal Musculoskeletal: gait normal, strength equal bilaterally - Psychiatric Psychiatric: appropriate mood/affect, intact judgment & insight - Neurologic Neurologic: CNII-XII intact, moves all extremities Results - Labs CBC & Chem 7: 12/31/20 14:46 12/31/20 14:46 Labs: Laboratory Last Values WBC 7.4 K/mm3 (4.5-11.0) 12/31/20 14:46 RBC 3.86 M/mm3 (3.65-5.03) 12/31/20 14:46 Hgb 10.3 gm/dl (11.8-15.2) L 12/31/20 14:46 Hct 31.3 % (35.5-45.6) L 12/31/20 14:46 MCV 81 fl (84-94) L 12/31/20 14:46 MCH 27 pg (28-32) L 12/31/20 14:46 MCHC 33 % (32-34) 12/31/20 14:46 RDW 17.3 % (13.2-15.2) H 12/31/20 14:46 Plt Count 340 K/mm3 (140-440) 12/31/20 14:46 Lymph % (Auto) 18.0 % (13.4-35.0) 12/31/20 14:46 Sharp % (Auto) 6.8 % (0.0-7.3) 12/31/20 14:46 Eos % (Auto) 0.8 % (0.0-4.3) 12/31/20 14:46 Baso % (Auto) 0.3 % (0.0-1.8) 12/31/20 14:46 Lymph # (Auto) 1.3 K/mm3 (1.2-5.4) 12/31/20 14:46 Sharp # (Auto) 0.5 K/mm3 (0.0-0.8) 12/31/20 14:46 Eos # (Auto) 0.1 K/mm3 (0.0-0.4) 12/31/20 14:46 Baso # (Auto) 0.0 K/mm3 (0.0-0.1) 12/31/20 14:46 Seg Neutrophils % 74.1 % (40.0-70.0) H 12/31/20 14:46 Seg Neutrophils # 5.5 K/mm3 (1.8-7.7) 12/31/20 14:46 Sodium 135 mmol/L (137-145) L 12/31/20 14:46 Potassium 3.6 mmol/L (3.6-5.0) 12/31/20 14:46 Chloride 100.2 mmol/L (98-107) 12/31/20 14:46 Carbon Dioxide 22 mmol/L (22-30) 12/31/20 14:46 Anion Gap 16 mmol/L 12/31/20 14:46 BUN 16 mg/dL (9-20) 12/31/20 14:46 Creatinine 1.2 mg/dL (0.8-1.3) 12/31/20 14:46 Estimated GFR > 60 ml/min 12/31/20 14:46 BUN/Creatinine Ratio 13 % 12/31/20 14:46 Glucose 139 mg/dL (75-100) H 12/31/20 14:46 Calcium 9.1 mg/dL (8.4-10.2) 12/31/20 14:46 Short CBC 12/31/20 Range/Units 14:46 WBC 7.4 (4.5-11.0) K/mm3 Hgb 10.3 L (11.8-15.2) gm/dl Hct 31.3 L (35.5-45.6) % Plt Count 340 (140-440) K/mm3 BMP 12/31/20 14:46 Sodium 135 L Potassium 3.6 Chloride 100.2 Carbon Dioxide 22 BUN 16 Creatinine 1.2 Glucose 139 H Calcium 9.1 Cohn/IV: Voiding Method Toilet Assessment and Plan Advance Directives: Yes (Full code) VTE prophylaxis?: Chemical Plan of care discussed with patient/family: Yes - Patient Problems (1) Cellulitis of right lower extremity Current Visit: Yes Status: Acute Plan to address problem: Patient has a large wound on the right calf region which needs debridement and wound care IV Unasyn and vancomycin started pending wound cultures (2) PAD (peripheral artery disease) Current Visit: Yes Status: Chronic Plan to address problem: On pentoxifylline Arterial duplex scan done (3) Peripheral neuropathy Current Visit: Yes Status: Chronic Qualifiers: Peripheral neuropathy type: polyneuropathy, unspecified Qualified Code(s): G62.9 - Polyneuropathy, unspecified Plan to address problem: On gabapentin (4) CHF (congestive heart failure) Current Visit: Yes Status: Chronic Qualifiers: Heart failure type: combined systolic and diastolic Plan to address problem: On torsemide (5) Hypertension Current Visit: Yes Status: Chronic Qualifiers: Hypertension type: primary hypertension Qualified Code(s): I10 - Essential (primary) hypertension Plan to address problem: Continue antihypertensive (6) DVT prophylaxis Current Visit: Yes Status: Acute Plan to address problem: On heparin and GI prophylaxis (7) Discharge planning issues Current Visit: Yes Status: Acute Plan to address problem: Patient will need intermediate placement skilled nursing does not want to take care of 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
[2020-12-31] MEDS ORDERED: HYDROmorphone 1 MG/1 ML INJ IV PRN (23:30)
[2020-12-31] MEDS ORDERED: METOCLOPRAMIDE 10 MG/2 ML INJ IV PRN (23:30)
[2020-12-31] MEDS ORDERED: ACETAMINOPHEN 325 MG TAB PO PRN (23:30)
[2020-12-31] MEDS ORDERED: ONDANSETRON 4 MG/2 ML INJ IV PRN (23:30)
[2020-12-31] MEDS ORDERED: VANCOMYCIN PHARMACY TO DOSE IV SCH (23:45)
[2021-01-01] MEDS: SODIUM CHLORIDE 0.9% 1000 ML 1,000 ML IV SCH (00:46)
[2021-01-01] MEDS: AMPICILLIN/SULBACTA 3GM/100ML 3 GM/100 ML BAG IV SCH ×5 (00:52→18:22)
[2021-01-01] MEDS: GABAPENTIN 100 MG CAP PO SCH ×4 (00:53→22:50)
[2021-01-01] MEDS: MELATONIN 5 MG TAB PO SCH ×2 (00:53→22:50)
[2021-01-01] MEDS: PENTOXIFYLLINE ER 400 MG TAB PO SCH ×3 (00:53→22:50)
[2021-01-01] MEDS: carvediloL 25 MG TAB PO SCH ×3 (00:53→18:12)
[2021-01-01] MEDS: FAMOTIDINE 20 MG/2 ML INJ IV SCH ×2 (00:54→09:12)
[2021-01-01] MEDS: HEPARIN 5,000 UNIT/1 ML VIAL SUB-Q SCH ×3 (00:54→22:51)
[2021-01-01] MEDS ORDERED: VANCOMYCIN 2,000 MG in SODIUM CHLORIDE 0.9% 500 ML 500 ML IV ONE (01:00)
[2021-01-01] MEDS: ISOSORB DINIT/HYDRALAZINE 20-37.5MG TAB PO SCH ×3 (06:03→22:50)
[2021-01-01] MEDS: oxyCODONE /ACETAMINOPHEN 5-325MG TAB PO PRN (06:05)
[2021-01-01] MEDS: TORSEMIDE 10 MG TAB PO SCH (09:12)
[2021-01-01] MEDS: SERTRALINE 50 MG TAB PO SCH (09:12)
[2021-01-01] MEDS: DIVALPROEX DR 250 MG TAB PO SCH ×2 (09:12→22:50)
[2021-01-01] MEDS: LISINOPRIL 40 MG TAB PO SCH (09:12)
--- NOTE | 2021-01-01 11:38 | Consultation ---
History of Present Illness Consult date: 01/01/21 Reason for consult: ischemic leg - History of present illness History of present illness: 60 yo male with CHF, PVD and 1/4 ppd with right lateral leg ulcer. [place] resident. Past History Past Medical History: COPD, heart failure, PVD Social history: smoking Medications and Allergies Allergies Allergy/AdvReac Type Severity Reaction Status Date / Time No Known Allergies Allergy Verified 08/21/20 21:39 Home Medications Medication Instructions Recorded Confirmed Last Taken Type AtorvaSTATin [Lipitor] 40 mg PO HS 08/26/20 01/01/21 12/30/20 History Divalproex ER [Depakote ER] 250 mg PO DAILY 08/26/20 01/01/21 12/30/20 History Gabapentin 100 mg PO Q8HR 08/26/20 01/01/21 12/30/20 History Isosorb Dinit/Hydralazine [Bidil 1 tab PO Q8H 08/26/20 01/01/21 12/30/20 History 20/37.5MG] Melatonin [Melatonin 5MG TAB] 5 mg PO HS 08/26/20 01/01/21 12/30/20 History Pentoxifylline 1 tab PO DAILY 08/26/20 01/01/21 12/30/20 History Sertraline HCl [Zoloft] 75 mg PO DAILY 08/26/20 01/01/21 12/30/20 History Torsemide [Demadex] 20 mg PO DAILY 08/26/20 01/01/21 12/30/20 History carvediloL [Coreg] 25 mg PO BID 08/26/20 01/01/21 12/30/20 History lisinopriL [Lisinopril] 40 mg PO DAILY 08/26/20 01/01/21 12/30/[address] [Depakote Dr] 250 mg PO BID tablet 08/29/20 01/01/21 12/30/20 Rx Gabapentin 100 mg PO Q8H capsule 08/29/20 12/31/20 Rx Isosorb Dinit/Hydralazine [Bidil 1 each PO Q8HR tablet 08/29/20 01/01/21 12/30/20 Rx 20/37.5MG] Pentoxifylline [TRENtal] 400 mg PO Q12HR tablet 0701/01/21 12/30/20 Rx Sertraline [Zoloft] 50 mg PO QDAY tablet 08/29/20 01/01/21 12/30/20 Rx carvediloL [Coreg] 25 mg PO BID tablet 08/29/20 01/01/21 12/30/20 Rx oxyCODONE /ACETAMINOPHEN [Percocet 1 tab PO Q6H PRN #30 tablet 08/29/20 01/01/21 12/30/20 Rx 5/325 mg] traZODone [Desyrel] 50 mg PO QHS tablet 08/29/20 01/01/21 12/30/20 Rx Active Meds: Active Medications Acetaminophen (Acetaminophen 325 Mg Tab) 650 mg PO Q4H PRN PRN Reason: Pain MILD(1-3)/Fever >100.5/DEVI Atorvastatin Calcium (Atorvastatin 40 Mg Tab) 40 mg PO [facility] Carvedilol (Carvedilol 25 Mg Tab) 25 mg PO BID@0800,1700 [facility] Last Admin: 01/01/21 09:12 Dose: 25 mg Documented by: Divalproex Sodium (Divalproex Dr 250 Mg Tab) 250 mg PO BID [facility] Last Admin: 01/01/21 09:12 Dose: 250 mg Documented by: Famotidine (Famotidine 20 Mg/2 Ml Inj) 20 mg IV BID [facility] Last Admin: 01/01/21 09:12 Dose: 20 mg Documented by: Gabapentin (Gabapentin 100 Mg Cap) 100 mg PO Q8HR [facility] Last Admin: 01/01/21 06:03 Dose: 100 mg Documented by: Heparin Sodium (Porcine) (Heparin 5,000 Unit/1 Ml Vial) 5,000 unit SUB-Q Q12HR [facility] Last Admin: 01/01/21 09:11 Dose: 5,000 unit Documented by: Hydromorphone HCl (Hydromorphone 1 Mg/1 Ml Inj) 0.5 mg IV Q3H PRN PRN Reason: Pain , Severe (7-10) Sodium Chloride (Nacl 0.9% 1000 Ml) 1,000 mls @ 75 mls/hr IV DIRECT [facility] Last Admin: 01/01/21 00:46 Dose: 75 mls/hr Documented by: Ampicillin Sodium/Sulbactam Sodium (Unasyn/Ns 3 Gm/100 Ml) 3 gm in 100 mls @ 100 mls/hr IV Q6HR [facility]; Protocol Last Admin: 01/01/21 06:02 Dose: 100 mls/hr Documented by: Vancomycin HCl 1,750 mg/ (Sodium Chloride) 535 mls @ 333.333 mls/hr IV Q24H [facility] Isosorbide Dinitrate/Hydralazine (Isosorb Dinit/Hydralazine 20-37.5mg Tab) 1 each PO Q8HR [facility] Last Admin: 01/01/21 06:03 Dose: 1 each Documented by: Lisinopril (Lisinopril 40 Mg Tab) 40 mg PO DAILY [facility] Last Admin: 01/01/21 09:12 Dose: 40 mg Documented by: Melatonin (Melatonin 5 Mg Tab) 5 mg PO HS [facility] Last Admin: 01/01/21 00:53 Dose: 5 mg Documented by: Metoclopramide HCl (Metoclopramide 10 Mg/2 Ml Inj) 10 mg IV Q6H PRN PRN Reason: Nausea And Vomiting Ondansetron HCl (Ondansetron 4 Mg/2 Ml Inj) 4 mg IV Q8H PRN PRN Reason: Nausea And Vomiting Oxycodone/Acetaminophen (Oxycodone /Acetaminophen 5-325mg Tab) 1 tab PO Q6H PRN PRN Reason: Pain, Moderate (4-6) Last Admin: 01/01/21 06:05 Dose: 1 tab Documented by: Pentoxifylline (Pentoxifylline Er 400 Mg Tab) 400 mg PO Q12HR [facility] Last Admin: 01/01/21 09:12 Dose: 400 mg Documented by: Sertraline HCl (Sertraline 50 Mg Tab) 50 mg PO QDAY [facility] Last Admin: 01/01/21 09:12 Dose: 50 mg Documented by: Sodium Chloride (Sodium Chloride 0.9% 10 Ml Flush Syringe) 10 ml IV BID [facility] Last Admin: 01/01/21 09:13 Dose: 10 ml Documented by: Sodium Chloride (Sodium Chloride 0.9% 10 Ml Flush Syringe) 10 ml IV PRN PRN PRN Reason: LINE FLUSH Torsemide (Torsemide 10 Mg Tab) 20 mg PO DAILY [facility] Last Admin: 01/01/21 09:12 Dose: 20 mg Documented by: Trazodone HCl (Trazodone 50 Mg Tab) 50 mg PO QHS [facility] Review of Systems All systems: negative (none) Exam Vital Signs Temp Pulse Resp BP Pulse Ox 98.1 F 79 16 115/68 100 12/31/20 14:01 12/31/20 14:01 12/31/20 14:01 12/31/20 14:01 12/31/20 14:01 - General physical appearance Positive: well developed, well nourished, no distress - Eyes Positive: PERRL, normal occular movement - ENT Positive: normal pinna, normal nares, normal mucosa, no hearing loss, no congestion - Neck Positive: no masses, no bruits, trachea midline, no venous distension - Respiratory Positive: normal expansion, normal respiratory effort, clear to auscultation - Cardiovascular Rhythm: regular Heart Sounds: Present: S1 & S2. Absent: rub, click - Extremities Extremities: no ischemia, pulses symmetrical, No edema - Breasts Breasts: normal, no mass, no skin changes - Abdomen Abdomen: Present: soft, bowel sounds normal. Absent: tender, distended Hernia: none - Genitourinary Male Genitourinary: normal Female Genitourinary: normal - Integumentary no rash, no growths, no abnormal pigmentation, other (There is an 18 X 12 X 0.4 superficial ulceration of the right lateral leg (See photos.) which appears to be venous stasis in origin. DP pulse is non-palpable.) - Neurologic Neurologic: alert and oriented to time, place and person, motor strength and sensation are grossly intact - Musculoskeletal normal gait, normal posture - Psychiatric Psychiatric: appropriate mood/affect, intact judgment & insight Results - Labs 12/31/20 14:46 12/31/20 14:46 Abnormal lab results 12/31/20 12/31/20 Range/Units 14:46 14:46 Hgb 10.3 L (11.8-15.2) gm/dl Hct 31.3 L (35.5-45.6) % MCV 81 L (84-94) fl MCH 27 L (28-32) pg RDW 17.3 H (13.2-15.2) % Seg Neutrophils % 74.1 H (40.0-70.0) % Sodium 135 L (137-145) mmol/L Glucose 139 H (75-100) mg/dL Diabetes panel 12/31/20 Range/Units 14:46 Sodium 135 L (137-145) mmol/L Potassium 3.6 (3.6-5.0) mmol/L Chloride 100.2 (98-107) mmol/L Carbon Dioxide 22 (22-30) mmol/L BUN 16 (9-20) mg/dL Creatinine 1.2 (0.8-1.3) mg/dL Glucose 139 H (75-100) mg/dL Calcium 9.1 (8.4-10.2) mg/dL Calcium panel 12/31/20 Range/Units 14:46 Calcium 9.1 (8.4-10.2) mg/dL Pituitary panel 12/31/20 Range/Units 14:46 Sodium 135 L (137-145) mmol/L Potassium 3.6 (3.6-5.0) mmol/L Chloride 100.2 (98-107) mmol/L Carbon Dioxide 22 (22-30) mmol/L BUN 16 (9-20) mg/dL Creatinine 1.2 (0.8-1.3) mg/dL Glucose 139 H (75-100) mg/dL Calcium 9.1 (8.4-10.2) mg/dL Adrenal panel 12/31/20 Range/Units 14:46 Sodium 135 L (137-145) mmol/L Potassium 3.6 (3.6-5.0) mmol/L Chloride 100.2 (98-107) mmol/L Carbon Dioxide 22 (22-30) mmol/L BUN 16 (9-20) mg/dL Creatinine 1.2 (0.8-1.3) mg/dL Glucose 139 H (75-100) mg/dL Calcium 9.1 (8.4-10.2) mg/dL Assessment and Plan - Patient Problems (1) Chronic venous hypertension (idiopathic) with ulcer of right lower extremity Current Visit: Yes Status: Acute Plan to address problem: 1) Quit smoking 2) Venous doppler of RLE 3) Arterial doppler of RLE 4) Elevate RLE as much as possible.
--- NOTE | 2021-01-01 13:26 | Vascular Lab Report ---
DUPLEX DOPPLER LOWER EXTREMITY ARTERIAL, RIGHT INDICATION / CLINICAL INFORMATION: Right leg ulcer. TECHNIQUE: Arterial duplex examination of the right lower extremity performed using B-mode, color adelita w and spectral Doppler assessment. COMPARISON: Bilateral lower extremity arterial Doppler 08/25/2020. FINDINGS: RIGHT: Common Femoral Artery: PSV 97 cm/sec. Triphasic waveform. Proximal SFA: PSV 122 cm/sec. Triphasic waveform. Mid SFA: PSV 131 cm/sec. Triphasic waveform. Distal SFA: PSV 123 cm/sec. Triphasic waveform. Popliteal artery: PSV 106 cm/sec. Triphasic waveform. Posterior tibial artery: PSV 107 cm/sec. Monophasic waveform. Dorsalis Pedis Artery: PSV 71 cm/sec. Triphasic waveform. Right ESDRAS: Not performed. IMPRESSION: 1. Multifocal atherosclerotic disease is present throughout the right lower extremity with transition from triphasic to monophasic waveform in the posterior tibial artery. These findings likely indicate moderate upstream stenosis within this segment. Ankle-Brachial Index (ESDRAS): - Calcified arteries > 1.4 - Normal = 0.9-1.4 - Mild PAD = 0.7-0.89 - Moderate PAD = 0.51-0.69 - Severe PAD < 0.5 Doppler Waveform: - Triphasic is normal. - Biphasic is abnormal if clear transition from triphasic signal along vascular tree. - Monophasic is abnormal. Scribed by: Rylie Pathak RDMS, RVT Scribed: 01/01/2021 12:01 PM I have reviewed the images, agree with this report, and edited this report as needed. Signer Name: Jack Scott MD Signed: 01/01/2021 1:21 PM Workstation Name: [id number]
--- NOTE | 2021-01-01 13:26 | Vascular Lab Report ---
DUPLEX DOPPLER LOWER EXTREMITY VEINS, RIGHT INDICATION / CLINICAL INFORMATION: Right leg ulcer. TECHNIQUE: Duplex doppler imaging was performed through the veins of the right lower extremity using venous compression and other maneuvers. COMPARISON: Bilateral lower extremity venous Doppler 08/25/2020. FINDINGS: RIGHT COMMON FEMORAL VEIN: Negative. RIGHT FEMORAL VEIN: Negative. RIGHT POPLITEAL VEIN: Negative. RIGHT CALF VEINS: Negative. ADDITIONAL FINDINGS: None. IMPRESSION: 1. No sonographic evidence for DVT in the right lower extremity. Scribed by: Rylie Pathak RDMS, RVT Scribed: 01/01/2021 12:02 PM I have reviewed the images, agree with this report, and edited this report as needed. Signer Name: Jack Scott MD Signed: 01/01/2021 1:21 PM Workstation Name: [id number]
[2021-01-01 14:22] LABS: Basophils % (Auto) 0.5 % (0.0-1.8); Eosinophils # (Auto) 0.1 K/mm3 (0.0-0.4); Eosinophils % (Auto) 1.5 % (0.0-4.3); Hematocrit 26.6 % (35.5-45.6); Hemoglobin 8.7 gm/dl (11.8-15.2); Lymphocytes # (Auto) 1.6 K/mm3 (1.2-5.4); Lymphocytes % (Auto) 28.2 % (13.4-35.0); Mean Corpuscular HGB Conc 33 % (32-34); Mean Corpuscular Volume 81 fl (84-94); Monocytes # (Auto) 0.6 K/mm3 (0.0-0.8); Monocytes % (Auto) 10.2 % (0.0-7.3); Platelet Count 275 K/mm3 (140-440); Red Blood Count 3.29 M/mm3 (3.65-5.03); Red Cell Distribution Width 16.9 % (13.2-15.2)
[2021-01-01 14:48] LABS: Alanine Aminotransferase 11 units/L (7-56); Albumin 2.7 g/dL (3.9-5); BUN/Creatinine Ratio 9; Blood Urea Nitrogen 12 mg/dL (9-20); Calcium 8.2 mg/dL (8.4-10.2); Hemolysis Index 56
--- NOTE | 2021-01-01 16:05 | Progress Note ---
Assessment and Plan Assessment and plan: 60-year-old male with history of hypertension, COPD, CHF, CKD, peripheral arterial disease sent in from the senior living for right leg wound. Patient has been wandering away from the senior living and senior living informed the daughter that they can no longer take care of him. Daughter. The patient senior living 3 weeks ago and put him in a hotel room to be taken care of. Patient had a right wound care which was not being taken care of. At the time of presentation to ER patient had a large wound on the back of the right calf with maggots in the wound. This is a stage IV wound. Purulent discharge and foul-smelling. Patient daughter who is a boom truck driver and states that she cannot take care of her father hence put him on the hotel room with arrangements for wound care and ADLs. (1) chronic nonhealing large wound in the right lower extremity x3 months Current Visit: Yes Status: Acute Plan to address problem: Patient was originally admitted to [facility] patient has a large wound on the right calf region which needs wound care Surgery consult for possible debridement IV Unasyn and vancomycin started pending wound cultures (2) PAD (peripheral artery disease) Current Visit: Yes Status: Chronic Plan to address problem: On pentoxifylline Arterial duplex scan done (3) Peripheral neuropathy Current Visit: Yes Status: Chronic Qualifiers: Peripheral neuropathy type: polyneuropathy, unspecified Qualified Code(s): G62.9 - Polyneuropathy, unspecified Plan to address problem: On gabapentin (4) CHF (congestive heart failure) Current Visit: Yes Status: Chronic Qualifiers: Heart failure type: combined systolic and diastolic Plan to address problem: On torsemide (5) Hypertension Current Visit: Yes Status: Chronic Qualifiers: Hypertension type: primary hypertension Qualified Code(s): I10 - Essential (primary) hypertension Plan to address problem: Continue antihypertensive (6) DVT prophylaxis Current Visit: Yes Status: Acute Plan to address problem: On heparin and GI prophylaxis (7) Discharge planning issues Current Visit: Yes Status: Acute Plan to address problem: Patient will need senior living placement retirement does not want to take care of him key account manager consulted for placement. History Interval history: Patient is receiving wound care. Afebrile. Hemodynamically stable. Does not have much pain at rest. Alert and oriented. Seems to be comfortable. Hospitalist Physical - Constitutional Vitals: Temp Pulse Resp BP Pulse Ox 99.0 F 76 20 129/83 98 01/01/21 03:59 01/01/21 03:59 01/01/21 03:59 01/01/21 03:59 01/01/21 03:59 General appearance: Present: no acute distress, well-nourished - EENT Eyes: Present: PERRL, EOM intact ENT: clear oral mucosa - Neck Neck: Present: supple - Respiratory Respiratory effort: normal Respiratory: bilateral: CTA - Cardiovascular Rhythm: regular - Extremities Extremity abnormal: other (Large chronic wound over posterior aspect of left lower leg extending from above ankle to mid calf with no purulence.) - Abdominal General gastrointestinal: soft, non-tender - Integumentary Integumentary: Absent: rash - Psychiatric Psychiatric: appropriate mood/affect - Neurologic Neurologic: no focal deficits Results - Labs CBC & Chem 7: 01/01/21 13:39 01/02/21 05:00 Labs: Laboratory Last Values WBC 5.7 K/mm3 (4.5-11.0) 01/01/21 13:39 RBC 3.29 M/mm3 (3.65-5.03) L 01/01/21 13:39 Hgb 8.7 gm/dl (11.8-15.2) L 01/01/21 13:39 Hct 26.6 % (35.5-45.6) L 01/01/21 13:39 MCV 81 fl (84-94) L 01/01/21 13:39 MCH 27 pg (28-32) L 01/01/21 13:39 MCHC 33 % (32-34) 01/01/21 13:39 RDW 16.9 % (13.2-15.2) H 01/01/21 13:39 Plt Count 275 K/mm3 (140-440) 01/01/21 13:39 Lymph % (Auto) 28.2 % (13.4-35.0) 01/01/21 13:39 [place] % (Auto) 10.2 % (0.0-7.3) H 01/01/21 13:39 Eos % (Auto) 1.5 % (0.0-4.3) 01/01/21 13:39 Baso % (Auto) 0.5 % (0.0-1.8) 01/01/21 13:39 Lymph # (Auto) 1.6 K/mm3 (1.2-5.4) 01/01/21 13:39 [place] # (Auto) 0.6 K/mm3 (0.0-0.8) 01/01/21 13:39 Eos # (Auto) 0.1 K/mm3 (0.0-0.4) 01/01/21 13:39 Baso # (Auto) 0.0 K/mm3 (0.0-0.1) 01/01/21 13:39 Seg Neutrophils % 59.6 % (40.0-70.0) 01/01/21 13:39 Seg Neutrophils # 3.4 K/mm3 (1.8-7.7) 01/01/21 13:39 Sodium 136 mmol/L (137-145) L 01/01/21 13:39 Potassium 4.6 mmol/L (3.6-5.0) D 01/01/21 13:39 Chloride 105.3 mmol/L (98-107) 01/01/21 13:39 Carbon Dioxide 20 mmol/L (22-30) L 01/01/21 13:39 Anion Gap 15 mmol/L 01/01/21 13:39 BUN 12 mg/dL (9-20) 01/01/21 13:39 Creatinine 1.3 mg/dL (0.8-1.3) 01/01/21 13:39 Estimated GFR > 60 ml/min 01/01/21 13:39 BUN/Creatinine Ratio 9 % 01/01/21 13:39 Glucose 127 mg/dL (75-100) H 01/01/21 13:39 Calcium 8.2 mg/dL (8.4-10.2) L 01/01/21 13:39 Total Bilirubin 0.50 mg/dL (0.1-1.2) 01/01/21 13:39 AST 17 units/L (5-40) 01/01/21 13:39 ALT 11 units/L (7-56) 01/01/21 13:39 Alkaline Phosphatase 94 units/L (35-129) 01/01/21 13:39 Total Protein 7.2 g/dL (6.3-8.2) 01/01/21 13:39 Albumin 2.7 g/dL (3.9-5) L 01/01/21 13:39 Albumin/Globulin Ratio 0.6 % 01/01/21 13:39 Cohn/IV: Voiding Method Toilet Active Medications - Current Medications Current Medications: Generic Name Dose Route Start Last Admin Trade Name Freq PRN Reason Stop Dose Admin Acetaminophen 650 mg 12/31/20 23:30 Acetaminophen 325 Mg Tab PO Q4H PRN Pain MILD(1-3)/Fever >100.5/DEVI Atorvastatin Calcium 40 mg 01/01/21 22:00 Atorvastatin 40 Mg Tab PO HS ELIOT Carvedilol 25 mg 12/31/20 23:45 01/01/21 09:12 Carvedilol 25 Mg Tab PO 25 mg BID@0800,1700 ELIOT Administration Divalproex Sodium 250 mg 01/01/21 10:00 01/01/21 09:[address] 250 Mg Tab PO 250 mg BID ELIOT Administration Famotidine 20 mg 01/01/21 22:00 Famotidine 20 Mg Tab PO BID ELIOT Gabapentin 100 mg 12/31/20 23:45 01/01/21 13:39 Gabapentin 100 Mg Cap PO 100 mg Q8HR ELIOT Administration Heparin Sodium (Porcine) 5,000 unit 12/31/20 23:45 01/01/21 09:11 Heparin 5,000 Unit/1 Ml Vial SUB-Q 5,000 unit Q12HR ELIOT Administration Hydromorphone HCl 0.5 mg 12/31/20 23:30 Hydromorphone 1 Mg/1 Ml Inj IV Q3H PRN Pain , Severe (7-10) Sodium Chloride 1,000 mls @ 75 mls/hr 12/31/20 23:30 01/01/21 00:46 Nacl 0.9% 1000 Ml IV 75 mls/hr DIRECT ELIOT Administration Ampicillin Sodium/Sulbactam Sodium 3 gm in 100 mls @ 100 mls/hr 01/01/21 00:00 01/01/21 06:02 Unasyn/Ns 3 Gm/100 Ml IV 100 mls/hr Q6HR ELIOT Administration Protocol Vancomycin HCl 1,500 mg/ 530 mls @ 333.333 mls/hr 01/01/21 22:00 Sodium Chloride IV Q18H ELIOT Isosorbide Dinitrate/Hydralazine 1 each 01/01/21 06:00 01/01/21 13:39 Isosorb Dinit/Hydralazine 20-37.5mg Tab PO 1 each Q8HR ELIOT Administration Lisinopril 40 mg 01/01/21 10:00 01/01/21 09:12 Lisinopril 40 Mg Tab PO 40 mg DAILY ELIOT Administration Melatonin 5 mg 12/31/20 22:00 01/01/21 00:53 Melatonin 5 Mg Tab PO 5 mg HS ELIOT Administration Metoclopramide HCl 10 mg 12/31/20 23:30 Metoclopramide 10 Mg/2 Ml Inj IV Q6H PRN Nausea And Vomiting Ondansetron HCl 4 mg 12/31/20 23:30 Ondansetron 4 Mg/2 Ml Inj IV Q8H PRN Nausea And Vomiting Oxycodone/Acetaminophen 1 tab 12/31/20 23:30 01/01/21 06:05 Oxycodone /Acetaminophen 5-325mg Tab PO 1 tab Q6H PRN Administration Pain, Moderate (4-6) Pentoxifylline 400 mg 12/31/20 23:45 01/01/21 09:12 Pentoxifylline Er 400 Mg Tab PO 400 mg Q12HR ELIOT Administration Sertraline HCl 50 mg 01/01/21 10:00 01/01/21 09:12 Sertraline 50 Mg Tab PO 50 mg QDAY ELIOT Administration Sodium Chloride 10 ml 01/01/21 10:00 01/01/21 09:13 Sodium Chloride 0.9% 10 Ml Flush Syringe IV 10 ml BID ELIOT Administration Sodium Chloride 10 ml 12/31/20 23:30 Sodium Chloride 0.9% 10 Ml Flush Syringe IV PRN PRN LINE FLUSH Torsemide 20 mg 01/01/21 10:00 01/01/21 09:12 Torsemide 10 Mg Tab PO 20 mg DAILY ELIOT Administration Trazodone HCl 50 mg 01/01/21 22:00 Trazodone 50 Mg Tab PO QHS ELIOT
[2021-01-01] MEDS ORDERED: VANCOMYCIN 1,750 MG in SODIUM CHLORIDE 0.9% 500 ML 500 ML IV SCH (22:00)
[2021-01-01] MEDS: FAMOTIDINE 20 MG TAB PO SCH (22:49)
[2021-01-01] MEDS: traZODone 50 MG TAB PO SCH (22:49)
[2021-01-01] MEDS: VANCOMYCIN 1,500 MG in SODIUM CHLORIDE 0.9% 500 ML 500 ML IV SCH (22:51)
[2021-01-02] MEDS: AMPICILLIN/SULBACTA 3GM/100ML 3 GM/100 ML BAG IV SCH ×4 (00:38→18:16)
[2021-01-02 05:24] LABS: BUN/Creatinine Ratio 8; Blood Urea Nitrogen 9 mg/dL (9-20); Calcium 8.2 mg/dL (8.4-10.2); Hemolysis Index 0
[2021-01-02] MEDS: ISOSORB DINIT/HYDRALAZINE 20-37.5MG TAB PO SCH ×4 (05:33→22:08)
[2021-01-02] MEDS: GABAPENTIN 100 MG CAP PO SCH ×3 (05:34→22:07)
[2021-01-02] MEDS: carvediloL 25 MG TAB PO SCH ×2 (09:15→18:16)
[2021-01-02] MEDS: TORSEMIDE 10 MG TAB PO SCH (11:09)
[2021-01-02] MEDS: LISINOPRIL 40 MG TAB PO SCH (11:10)
[2021-01-02] MEDS: HEPARIN 5,000 UNIT/1 ML VIAL SUB-Q SCH ×2 (11:13→22:07)
--- NOTE | 2021-01-02 12:19 | Consultation ---
History of Present Illness - Reason for Consult Consult date: 01/02/21 Right leg wound - History of Present Illness Patient with a history of bilateral lower extremity swelling, hemosiderin stai cameron, dry skin, edema who complains of a wound on the lateral aspect of his right lower leg of approximately 3 months. The patient does follow-up in the outpatient setting at [facility] wound care per the patient. His feet are warm and well perfused. Patient has no complaints at time of examination. Past History Past Medical History: COPD, heart failure, PVD Social history: smoking Medications and Allergies Allergies Allergy/AdvReac Type Severity Reaction Status Date / Time No Known Allergies Allergy Verified 08/21/20 21:39 Home Medications Medication Instructions Recorded Confirmed Last Taken Type AtorvaSTATin [Lipitor] 40 mg PO HS 08/26/20 01/01/21 12/30/20 History Divalproex ER [Depakote ER] 250 mg PO DAILY 08/26/20 01/01/21 12/30/20 History Gabapentin 100 mg PO Q8HR 08/26/20 01/01/21 12/30/20 History Isosorb Dinit/Hydralazine [Bidil 1 tab PO Q8H 08/26/20 01/01/21 12/30/20 History 20/37.5MG] Melatonin [Melatonin 5MG TAB] 5 mg PO HS 08/26/20 01/01/21 12/30/20 History Pentoxifylline 1 tab PO DAILY 08/26/20 01/01/21 12/30/20 History Sertraline HCl [Zoloft] 75 mg PO DAILY 08/26/20 01/01/21 12/30/20 History Torsemide [Demadex] 20 mg PO DAILY 08/26/20 01/01/21 12/30/20 History carvediloL [Coreg] 25 mg PO BID 08/26/20 01/01/21 12/30/20 History lisinopriL [Lisinopril] 40 mg PO DAILY 08/26/20 01/01/21 12/30/[address] [Depakote Dr] 250 mg PO BID tablet 08/29/20 01/01/21 12/30/20 Rx Isosorb Dinit/Hydralazine [Bidil 1 each PO Q8HR tablet 08/29/20 01/01/21 Rx 20/37.5MG] Pentoxifylline [TRENtal] 400 mg PO Q12HR tablet 08/29/20 01/01/21 12/30/20 Rx Sertraline [Zoloft] 50 mg PO QDAY tablet 08/29/20 01/01/21 12/30/20 Rx carvediloL [Coreg] 25 mg PO BID tablet 08/29/20 01/01/21 12/30/20 Rx oxyCODONE /ACETAMINOPHEN [Percocet 1 tab PO Q6H PRN #30 tablet 08/29/20 01/01/21 12/30/20 Rx 5/325 mg] traZODone [Desyrel] 50 mg PO QHS tablet 08/29/20 01/01/21 12/30/20 Rx Active Meds: Active Medications Acetaminophen (Acetaminophen 325 Mg Tab) 650 mg PO Q4H PRN PRN Reason: Pain MILD(1-3)/Fever >100.5/DEVI Atorvastatin Calcium (Atorvastatin 40 Mg Tab) 40 mg PO HS [facility] Last Admin: 01/01/21 22:50 Dose: 40 mg Documented by: Carvedilol (Carvedilol 25 Mg Tab) 25 mg PO BID@0800,1700 [facility] Last Admin: 01/01/21 18:12 Dose: 25 mg Documented by: Divalproex Sodium (Divalproex Dr 250 Mg Tab) 250 mg PO BID [facility] Last Admin: 01/01/21 22:50 Dose: 250 mg Documented by: Famotidine (Famotidine 20 Mg Tab) 20 mg PO BID [facility] Last Admin: 01/01/21 22:49 Dose: 20 mg Documented by: Gabapentin (Gabapentin 100 Mg Cap) 100 mg PO Q8HR [facility] Last Admin: 01/02/21 05:34 Dose: 100 mg Documented by: Heparin Sodium (Porcine) (Heparin 5,000 Unit/1 Ml Vial) 5,000 unit SUB-Q Q12HR [facility] Last Admin: 01/01/21 22:51 Dose: 5,000 unit Documented by: Hydromorphone HCl (Hydromorphone 1 Mg/1 Ml Inj) 0.5 mg IV Q3H PRN PRN Reason: Pain , Severe (7-10) Sodium Chloride (Nacl 0.9% 1000 Ml) 1,000 mls @ 75 mls/hr IV DIRECT [facility] Last Infusion: 01/01/21 22:40 Dose: Infused Documented by: Ampicillin Sodium/Sulbactam Sodium (Unasyn/Ns 3 Gm/100 Ml) 3 gm in 100 mls @ 100 mls/hr IV Q6HR [facility]; Protocol Last Infusion: 01/02/21 07:48 Dose: Infused Documented by: Vancomycin HCl 1,500 mg/ (Sodium Chloride) 530 mls @ 333.333 mls/hr IV Q18H [facility] Last Infusion: 01/02/21 01:37 Dose: Infused Documented by: Isosorbide Dinitrate/Hydralazine (Isosorb Dinit/Hydralazine 20-37.5mg Tab) 1 each PO Q8HR [facility] Last Admin: 01/02/21 05:35 Dose: Not Given Documented by: Lisinopril (Lisinopril 40 Mg Tab) 40 mg PO DAILY [facility] Last Admin: 01/01/21 09:12 Dose: 40 mg Documented by: Melatonin (Melatonin 5 Mg Tab) 5 mg PO HS [facility] Last Admin: 01/01/21 22:50 Dose: 5 mg Documented by: Metoclopramide HCl (Metoclopramide 10 Mg/2 Ml Inj) 10 mg IV Q6H PRN PRN Reason: Nausea And Vomiting Ondansetron HCl (Ondansetron 4 Mg/2 Ml Inj) 4 mg IV Q8H PRN PRN Reason: Nausea And Vomiting Oxycodone/Acetaminophen (Oxycodone /Acetaminophen 5-325mg Tab) 1 tab PO Q6H PRN PRN Reason: Pain, Moderate (4-6) Last Admin: 01/01/21 06:05 Dose: 1 tab Documented by: Pentoxifylline (Pentoxifylline Er 400 Mg Tab) 400 mg PO Q12HR [facility] Last Admin: 01/01/21 22:50 Dose: 400 mg Documented by: Sertraline HCl (Sertraline 50 Mg Tab) 50 mg PO QDAY [facility] Last Admin: 01/01/21 09:12 Dose: 50 mg Documented by: Sodium Chloride (Sodium Chloride 0.9% 10 Ml Flush Syringe) 10 ml IV BID [facility] Last Admin: 01/01/21 22:51 Dose: 10 ml Documented by: Sodium Chloride (Sodium Chloride 0.9% 10 Ml Flush Syringe) 10 ml IV PRN PRN PRN Reason: LINE FLUSH Torsemide (Torsemide 10 Mg Tab) 20 mg PO DAILY [facility] Last Admin: 01/01/21 09:12 Dose: 20 mg Documented by: Trazodone HCl (Trazodone 50 Mg Tab) 50 mg PO QHS [facility] Last Admin: 01/01/21 22:49 Dose: 50 mg Documented by: Review of Systems All systems: negative Exam - Constitutional Vitals: Temp Pulse Resp BP Pulse Ox 97.8 F 57 L 18 105/63 97 01/02/21 05:01 01/02/21 05:01 01/02/21 05:01 01/02/21 05:01 01/02/21 05:01 General appearance: Present: no acute distress - EENT Eyes: Present: EOM intact - Neck Neck: Present: supple, normal ROM - Respiratory Respiratory effort: normal - Extremities Extremity abnormal: other (Right lateral venous stasis ulcer) - Abdominal General gastrointestinal: Present: deferred Male genitourinary: Present: deferred - Rectal Rectal Exam: deferred - Psychiatric Psychiatric: cooperative Results - Labs CBC & Chem 7: 01/01/21 13:39 01/02/21 05:00 Labs: Abnormal lab results 01/01/21 01/01/21 01/02/21 Range/Units 13:39 13:39 05:00 RBC 3.29 L (3.65-5.03) M/mm3 Hgb 8.7 L (11.8-15.2) gm/dl Hct 26.6 L (35.5-45.6) % MCV 81 L (84-94) fl MCH 27 L (28-32) pg RDW 16.9 H (13.2-15.2) % [place] % (Auto) 10.2 H (0.0-7.3) % Sodium 136 L (137-145) mmol/L Carbon Dioxide 20 L 21 L (22-30) mmol/L Glucose 127 H (75-100) mg/dL Calcium 8.2 L 8.2 L (8.4-10.2) mg/dL Albumin 2.7 L (3.9-5) g/dL - Imaging and Cardiology Venous US: report reviewed (Arterial and venous) Assessment and Plan Patient with a history of right lower extremity venous stasis ulcer. He underwent a venous ultrasound to rule out DVT which was negative as well as arterial duplex with demonstrates some mild tibial disease. The patient has likely sequela of venous reflux which can be further evaluated in the outpatient setting after discharge. Would have him follow-up in our office 2 weeks after discharge.
[2021-01-02] MEDS: oxyCODONE /ACETAMINOPHEN 5-325MG TAB PO PRN (14:06)
[2021-01-02] MEDS: FAMOTIDINE 20 MG TAB PO SCH ×2 (14:07→22:06)
[2021-01-02] MEDS: SERTRALINE 50 MG TAB PO SCH (14:08)
[2021-01-02] MEDS: DIVALPROEX DR 250 MG TAB PO SCH ×2 (14:09→22:05)
[2021-01-02] MEDS: PENTOXIFYLLINE ER 400 MG TAB PO SCH ×2 (14:09→22:05)
[2021-01-02] MEDS: VANCOMYCIN 1,500 MG in SODIUM CHLORIDE 0.9% 500 ML 500 ML IV SCH (16:17)
--- NOTE | 2021-01-02 18:09 | Progress Note ---
Assessment and Plan Assessment and plan: 60-year-old male with history of hypertension, COPD, CHF, CKD, peripheral arterial disease sent in from the group home for right leg wound. Patient has been wandering away from the group home and group home informed the daughter that they can no longer take care of him. Daughter. The patient group home 3 weeks ago and put him in a hotel room to be taken care of. Patient had a right wound care which was not being taken care of. At the time of presentation to ER patient had a large wound on the back of the right calf with maggots in the wound. This is a stage IV wound. Purulent discharge and foul-smelling. Patient daughter who is a trucksmith and states that she cannot take care of her father hence put him on the hotel room with arrangements for wound care and ADLs. (1) chronic nonhealing large wound in the right lower extremity x3 months Current Visit: Yes Status: Acute Plan to address problem: Patient was originally admitted to [facility] patient has a large wound on the right calf region which needs wound care Vascular surgery evaluated, likely venous ulcer, needs follow-up in office in about 2 weeks. Feet warm. General surgery evaluated, no need for debridement, recommends Dakin's dressings, wound care and follow-up with wound care center Plan for discharge tomorrow if placement issues addressed by case management. Afebrile, no leukocytosis, no wound purulence, will discontinue Unasyn and vancomycin started empirically (2) PAD (peripheral artery disease) Current Visit: Yes Status: Chronic Plan to address problem: On pentoxifylline Arterial duplex scan done (3) Peripheral neuropathy Current Visit: Yes Status: Chronic Qualifiers: Peripheral neuropathy type: polyneuropathy, unspecified Qualified Code(s): G62.9 - Polyneuropathy, unspecified Plan to address problem: On gabapentin (4) CHF (congestive heart failure) Current Visit: Yes Status: Chronic Qualifiers: Heart failure type: combined systolic and diastolic Plan to address problem: On torsemide (5) Hypertension Current Visit: Yes Status: Chronic Qualifiers: Hypertension type: primary hypertension Qualified Code(s): I10 - Essential (primary) hypertension Plan to address problem: Continue antihypertensive (6) DVT prophylaxis Current Visit: Yes Status: Acute Plan to address problem: On heparin and GI prophylaxis (7) Discharge planning issues Current Visit: Yes Status: Acute Plan to address problem: Patient will need group home placement jail does not want to take care of him information resources manager consulted for placement. Discussed the patient, general surgery and the nursing staff. History Interval history: Patient is receiving wound care. Afebrile. Hemodynamically stable. Does not have much pain at rest. Alert and oriented. Seems to be comfortable. Hospitalist Physical - Constitutional Vitals: Temp Pulse Resp BP Pulse Ox 97.8 F 57 L 18 105/63 97 01/02/21 05:01 01/02/21 05:01 01/02/21 05:01 01/02/21 05:01 01/02/21 05:01 General appearance: Present: no acute distress, obese - EENT Eyes: Present: PERRL, EOM intact ENT: clear oral mucosa - Neck Neck: Present: supple - Respiratory Respiratory effort: normal Respiratory: bilateral: CTA - Cardiovascular Rhythm: regular - Extremities Extremity abnormal: other (Chronic nonhealing large ulcer over the posterior aspect of right lower extremity extending from elbow ankle to mid calf. Granulation tissue appears healthy. No purulence. No foul smelling. Feet warm with stasis pigmentation. No significant edema.) Peripheral Pulses: abnormal (Feet warm with palpable pedal pulses.) - Integumentary Integumentary: Absent: rash - Psychiatric Psychiatric: appropriate mood/affect - Neurologic Neurologic: no focal deficits Results - Labs CBC & Chem 7: 01/01/21 13:39 01/02/21 05:00 Labs: Laboratory Last Values WBC 5.7 K/mm3 (4.5-11.0) 01/01/21 13:39 RBC 3.29 M/mm3 (3.65-5.03) L 01/01/21 13:39 Hgb 8.7 gm/dl (11.8-15.2) L 01/01/21 13:39 Hct 26.6 % (35.5-45.6) L 01/01/21 13:39 MCV 81 fl (84-94) L 01/01/21 13:39 MCH 27 pg (28-32) L 01/01/21 13:39 MCHC 33 % (32-34) 01/01/21 13:39 RDW 16.9 % (13.2-15.2) H 01/01/21 13:39 Plt Count 275 K/mm3 (140-440) 01/01/21 13:39 Lymph % (Auto) 28.2 % (13.4-35.0) 01/01/21 13:39 [place] % (Auto) 10.2 % (0.0-7.3) H 01/01/21 13:39 Eos % (Auto) 1.5 % (0.0-4.3) 01/01/21 13:39 Baso % (Auto) 0.5 % (0.0-1.8) 01/01/21 13:39 Lymph # (Auto) 1.6 K/mm3 (1.2-5.4) 01/01/21 13:39 [place] # (Auto) 0.6 K/mm3 (0.0-0.8) 01/01/21 13:39 Eos # (Auto) 0.1 K/mm3 (0.0-0.4) 01/01/21 13:39 Baso # (Auto) 0.0 K/mm3 (0.0-0.1) 01/01/21 13:39 Seg Neutrophils % 59.6 % (40.0-70.0) 01/01/21 13:39 Seg Neutrophils # 3.4 K/mm3 (1.8-7.7) 01/01/21 13:39 Sodium 138 mmol/L (137-145) 01/02/21 05:00 Potassium 3.8 mmol/L (3.6-5.0) 01/02/21 05:00 Chloride 105.4 mmol/L (98-107) 01/02/21 05:00 Carbon Dioxide 21 mmol/L (22-30) L 01/02/21 05:00 Anion Gap 15 mmol/L 01/02/21 05:00 BUN 9 mg/dL (9-20) 01/02/21 05:00 Creatinine 1.2 mg/dL (0.8-1.3) 01/02/21 05:00 Estimated GFR > 60 ml/min 01/02/21 05:00 BUN/Creatinine Ratio 8 % 01/02/21 05:00 Glucose 88 mg/dL (75-100) 01/02/21 05:00 Calcium 8.2 mg/dL (8.4-10.2) L 01/02/21 05:00 Total Bilirubin 0.50 mg/dL (0.1-1.2) 01/01/21 13:39 AST 17 units/L (5-40) 01/01/21 13:39 ALT 11 units/L (7-56) 01/01/21 13:39 Alkaline Phosphatase 94 units/L (35-129) 01/01/21 13:39 Total Protein 7.2 g/dL (6.3-8.2) 01/01/21 13:39 Albumin 2.7 g/dL (3.9-5) L 01/01/21 13:39 Albumin/Globulin Ratio 0.6 % 01/01/21 13:39 Cohn/IV: Voiding Method Urinal Active Medications - Current Medications Current Medications: Generic Name Dose Route Start Last Admin Trade Name Freq PRN Reason Stop Dose Admin Acetaminophen 650 mg 12/31/20 23:30 Acetaminophen 325 Mg Tab PO Q4H PRN Pain MILD(1-3)/Fever >100.5/DEVI Atorvastatin Calcium 40 mg 01/01/21 22:00 01/01/21 22:50 Atorvastatin 40 Mg Tab PO 40 mg HS ELIOT Administration Carvedilol 25 mg 12/31/20 23:45 01/02/21 09:15 Carvedilol 25 Mg Tab PO 25 mg BID@0800,1700 ELIOT Administration Divalproex Sodium 250 mg 01/01/21 10:00 01/02/21 14:[address] 250 Mg Tab PO 250 mg BID ELIOT Administration Famotidine 20 mg 01/01/21 22:00 01/02/21 14:07 Famotidine 20 Mg Tab PO 20 mg BID ELIOT Administration Gabapentin 100 mg 12/31/20 23:45 01/02/21 14:07 Gabapentin 100 Mg Cap PO 100 mg Q8HR ELIOT Administration Heparin Sodium (Porcine) 5,000 unit 12/31/20 23:45 01/02/21 11:13 Heparin 5,000 Unit/1 Ml Vial SUB-Q 5,000 unit Q12HR ELIOT Administration Hydromorphone HCl 0.5 mg 12/31/20 23:30 Hydromorphone 1 Mg/1 Ml Inj IV Q3H PRN Pain , Severe (7-10) Sodium Chloride 1,000 mls @ 75 mls/hr 12/31/20 23:30 01/01/21 22:40 Nacl 0.9% 1000 Ml IV Infused DIRECT ELIOT Infusion Ampicillin Sodium/Sulbactam Sodium 3 gm in 100 mls @ 100 mls/hr 01/01/21 00:00 01/02/21 07:48 Unasyn/Ns 3 Gm/100 Ml IV Infused Q6HR ELIOT Infusion Protocol Vancomycin HCl 1,500 mg/ 530 mls @ 333.333 mls/hr 01/01/21 22:00 01/02/21 01:37 Sodium Chloride IV Infused Q18H ELIOT Infusion Isosorbide Dinitrate/Hydralazine 1 each 01/01/21 06:00 01/02/21 14:07 Isosorb Dinit/Hydralazine 20-37.5mg Tab PO 1 each Q8HR ELIOT Administration Lisinopril 40 mg 01/01/21 10:00 01/02/21 11:10 Lisinopril 40 Mg Tab PO 40 mg DAILY ELIOT Administration Melatonin 5 mg 12/31/20 22:00 01/01/21 22:50 Melatonin 5 Mg Tab PO 5 mg HS ELIOT Administration Metoclopramide HCl 10 mg 12/31/20 23:30 Metoclopramide 10 Mg/2 Ml Inj IV Q6H PRN Nausea And Vomiting Ondansetron HCl 4 mg 12/31/20 23:30 Ondansetron 4 Mg/2 Ml Inj IV Q8H PRN Nausea And Vomiting Oxycodone/Acetaminophen 1 tab 12/31/20 23:30 01/02/21 14:06 Oxycodone /Acetaminophen 5-325mg Tab PO 1 tab Q6H PRN Administration Pain, Moderate (4-6) Pentoxifylline 400 mg 12/31/20 23:45 01/02/21 14:09 Pentoxifylline Er 400 Mg Tab PO 400 mg Q12HR ELIOT Administration Sertraline HCl 50 mg 01/01/21 10:00 01/02/21 14:08 Sertraline 50 Mg Tab PO 50 mg QDAY ELIOT Administration Sodium Chloride 10 ml 01/01/21 10:00 01/02/21 14:14 Sodium Chloride 0.9% 10 Ml Flush Syringe IV 10 ml BID ELIOT Administration Sodium Chloride 10 ml 12/31/20 23:30 Sodium Chloride 0.9% 10 Ml Flush Syringe IV PRN PRN LINE FLUSH Sodium Hypochlorite 1 applic 01/02/21 15:00 Sodium Hypochlorite, Dakin's 1/2 Strength (0.25%) 473 Ml Topical Soln TP BID ELIOT Torsemide 20 mg 01/01/21 10:00 01/02/21 11:09 Torsemide 10 Mg Tab PO 20 mg DAILY ELIOT Administration Trazodone HCl 50 mg 01/01/21 22:00 01/01/21 22:49 Trazodone 50 Mg Tab PO 50 mg QHS ELIOT Administration
--- NOTE | 2021-01-02 18:14 | Progress Note ---
Assessment and Plan - Patient Problems (1) Chronic venous hypertension (idiopathic) with ulcer of right lower extremity Current Visit: Yes Status: Acute Plan to address problem: 1) Okay for discharge with f/u in the [facility]. Subjective Date of service: 01/02/21 Patient Reports: Positive: no new complaints (Vascular surgery evaluation noted.) Objective - Integumentary other (No change in leg exam.) - Labs 01/01/21 13:39 01/02/21 05:00 Diabetes panel 01/02/21 Range/Units 05:00 Sodium 138 (137-145) mmol/L Potassium 3.8 (3.6-5.0) mmol/L Chloride 105.4 (98-107) mmol/L Carbon Dioxide 21 L (22-30) mmol/L BUN 9 (9-20) mg/dL Creatinine 1.2 (0.8-1.3) mg/dL Glucose 88 (75-100) mg/dL Calcium 8.2 L (8.4-10.2) mg/dL Calcium panel 01/02/21 Range/Units 05:00 Calcium 8.2 L (8.4-10.2) mg/dL Pituitary panel 01/02/21 Range/Units 05:00 Sodium 138 (137-145) mmol/L Potassium 3.8 (3.6-5.0) mmol/L Chloride 105.4 (98-107) mmol/L Carbon Dioxide 21 L (22-30) mmol/L BUN 9 (9-20) mg/dL Creatinine 1.2 (0.8-1.3) mg/dL Glucose 88 (75-100) mg/dL Calcium 8.2 L (8.4-10.2) mg/dL Adrenal panel 01/02/21 Range/Units 05:00 Sodium 138 (137-145) mmol/L Potassium 3.8 (3.6-5.0) mmol/L Chloride 105.4 (98-107) mmol/L Carbon Dioxide 21 L (22-30) mmol/L BUN 9 (9-20) mg/dL Creatinine 1.2 (0.8-1.3) mg/dL Glucose 88 (75-100) mg/dL Calcium 8.2 L (8.4-10.2) mg/dL
[2021-01-02] MEDS: SODIUM HYPOCHLORITE, DAKIN'S 1/2 STRENGTH (0.25%) 473 ML TOPICAL SOLN TP SCH (18:17)
[2021-01-02] MEDS: MELATONIN 5 MG TAB PO SCH (22:06)
[2021-01-02] MEDS: traZODone 50 MG TAB PO SCH (22:06)
[2021-01-03] MEDS: AMPICILLIN/SULBACTA 3GM/100ML 3 GM/100 ML BAG IV SCH ×2 (00:07→05:34)
[2021-01-03] MEDS: GABAPENTIN 100 MG CAP PO SCH ×3 (05:34→21:12)
[2021-01-03] MEDS: SODIUM CHLORIDE 0.9% 1000 ML 1,000 ML IV SCH ×2 (05:34→12:28)
[2021-01-03] MEDS: ISOSORB DINIT/HYDRALAZINE 20-37.5MG TAB PO SCH ×3 (05:39→21:53)
[2021-01-03] MEDS: LISINOPRIL 40 MG TAB PO SCH (12:40)
[2021-01-03] MEDS: FAMOTIDINE 20 MG TAB PO SCH ×2 (12:40→21:12)
[2021-01-03] MEDS: DIVALPROEX DR 250 MG TAB PO SCH ×2 (12:41→21:16)
[2021-01-03] MEDS: PENTOXIFYLLINE ER 400 MG TAB PO SCH ×2 (12:41→21:12)
[2021-01-03] MEDS: TORSEMIDE 10 MG TAB PO SCH (12:41)
[2021-01-03] MEDS: SERTRALINE 50 MG TAB PO SCH (12:42)
[2021-01-03] MEDS: HEPARIN 5,000 UNIT/1 ML VIAL SUB-Q SCH ×2 (12:42→21:14)
[2021-01-03] MEDS: carvediloL 25 MG TAB PO SCH ×2 (12:50→18:50)
[2021-01-03] MEDS: VANCOMYCIN 1,500 MG in SODIUM CHLORIDE 0.9% 500 ML 500 ML IV SCH ×2 (12:59→18:52)
[2021-01-03] MEDS: SODIUM HYPOCHLORITE, DAKIN'S 1/2 STRENGTH (0.25%) 473 ML TOPICAL SOLN TP SCH ×2 (18:46→21:54)
[2021-01-03] MEDS: MELATONIN 5 MG TAB PO SCH (21:12)
[2021-01-03] MEDS: traZODone 50 MG TAB PO SCH (21:13)
[2021-01-04] MEDS: GABAPENTIN 100 MG CAP PO SCH ×2 (06:32→14:06)
[2021-01-04] MEDS: ISOSORB DINIT/HYDRALAZINE 20-37.5MG TAB PO SCH ×2 (06:32→14:40)
[2021-01-04] MEDS: carvediloL 25 MG TAB PO SCH ×2 (08:00)
[2021-01-04] MEDS: SODIUM HYPOCHLORITE, DAKIN'S 1/2 STRENGTH (0.25%) 473 ML TOPICAL SOLN TP SCH (09:19)
[2021-01-04] MEDS: PENTOXIFYLLINE ER 400 MG TAB PO SCH (09:21)
[2021-01-04] MEDS: DIVALPROEX DR 250 MG TAB PO SCH (09:21)
[2021-01-04] MEDS: SERTRALINE 50 MG TAB PO SCH (09:22)
[2021-01-04] MEDS: FAMOTIDINE 20 MG TAB PO SCH (09:22)
[2021-01-04] MEDS: HEPARIN 5,000 UNIT/1 ML VIAL SUB-Q SCH (09:22)
[2021-01-04] MEDS: TORSEMIDE 10 MG TAB PO SCH (10:00)
[2021-01-04] MEDS: LISINOPRIL 40 MG TAB PO SCH (10:00)
[2021-01-04] MEDS: VANCOMYCIN 1,500 MG in SODIUM CHLORIDE 0.9% 500 ML 500 ML IV SCH (12:00)
[2021-01-04 12:13] VITALS: BP 126/87
--- NOTE | 2021-01-04 16:56 | Progress Note ---
Assessment and Plan - Patient Problems (1) Cellulitis of right lower extremity Current Visit: Yes Status: Acute Plan to address problem: Patient has a large wound on the right calf region which needs debridement and wound care IV Unasyn and vancomycin started pending wound cultures (2) PAD (peripheral artery disease) Current Visit: Yes Status: Chronic Plan to address problem: On pentoxifylline Arterial duplex scan done (3) Peripheral neuropathy Current Visit: Yes Status: Chronic Qualifiers: Peripheral neuropathy type: polyneuropathy, unspecified Qualified Code(s): G62.9 - Polyneuropathy, unspecified Plan to address problem: On gabapentin (4) CHF (congestive heart failure) Current Visit: Yes Status: Chronic Qualifiers: Heart failure type: combined systolic and diastolic Plan to address problem: On torsemide (5) Hypertension Current Visit: Yes Status: Chronic Qualifiers: Hypertension type: primary hypertension Qualified Code(s): I10 - Essential (primary) hypertension Plan to address problem: Continue antihypertensive (6) DVT prophylaxis Current Visit: Yes Status: Acute Plan to address problem: On heparin and GI prophylaxis (7) Discharge planning issues Current Visit: Yes Status: Acute Plan to address problem: Patient will need intermediate placement [facility] does not want to take care of him assurance sourcing manager consult requested Subjective Date of service: 01/03/21 Principal diagnosis: Lower extremity ulcer Interval history: History of present illness: 60-year-old male with history of hypertension, COPD, CHF, CKD, peripheral arterial disease sent in from the intermediate for right leg wound. Patient has been wandering away from the intermediate and intermediate informed the daughter that they can no longer take care of him. Daughter. The patient intermediate 3 weeks ago and put him in a hotel room to be taken care of. Patient had a right wound care which was not being taken care of. At the time of presentation to ER patient had a large wound on the back of the right calf with maggots in the wound. This is a stage IV wound. Purulent discharge and foul-smelling. Patient daughter who is a reach lift truck driver and states that she cannot take care of her father hence put him on the hotel room with arrangements for wound care and ADLs. Objective - Constitutional Vitals: Vital Signs - 12hr 01/04/21 01/04/21 01/04/21 08:00 12:11 12:12 Temperature 98.6 F Pulse Rate 51 L 63 56 L Respiratory 19 Rate Blood Pressure 126/87 O2 Sat by Pulse 98 96 Oximetry General appearance: Present: no acute distress, well-nourished - EENT Eyes: PERRL, EOM intact ENT: hearing intact, clear oral mucosa Ears: bilateral: normal - Neck Neck: supple, normal ROM - Respiratory Respiratory effort: normal Respiratory: bilateral: CTA - Breasts Breasts: normal - Cardiovascular Heart rate: 78 Rhythm: regular Heart Sounds: Present: S1 & S2. Absent: gallop, rub Extremities: pulses intact, No edema, normal color, Full ROM, abnormal ( (Large right calf wound 10 cm x 8 cm and stage IV with purulent drainage and maggots initially)) Extremity abnormal: other - Gastrointestinal General gastrointestinal: Present: soft, non-tender, non-distended, normal bowel sounds - Genitourinary Male genitourinary: normal - Integumentary Integumentary: clear, warm, dry - Musculoskeletal Musculoskeletal: 1, strength equal bilaterally - Neurologic Neurologic: moves all extremities - Psychiatric Psychiatric: memory intact, appropriate mood/affect, intact judgment & insight - Labs CBC & Chem 7: 01/01/21 13:39 01/02/21 05:00
--- NOTE | 2021-01-04 17:04 | Discharge Summary ---
Providers - Providers Date of Admission: 01/02/21 13:23 Date of discharge: 01/04/21 Attending physician: VINAY JOHNS 12/31/20 23:30 Consult to Physician [CONS] Routine Comment: Consulting Provider: LUIS MANUEL GARCIAS Physician Instructions: Reason For Exam: Rt leg ulcer 01/01/21 07:36 Consult to Wound/ET Nurse [CONS] Routine Reason For Exam: wound eval 01/01/21 16:26 Physical Therapy Evaluation and Treat [CONS] Stat Comment: Reason For Exam: Physical Therapy Eval and Treat 01/01/21 16:27 Occupational Therapy Evaluate and Treat [CONS] Stat Comment: Eval and Treat Reason For Exam: Occuaptional Therapy Primary care physician: FACILITY MECHANIC Hospitalization Condition: Stable Hospital course: Subjective Date of service: 01/04/21 Principal diagnosis: Lower extremity ulcer Interval history: History of present illness: 60-year-old male with history of hypertension, COPD, CHF, CKD, peripheral arterial disease [facility]. Patient has been wandering away from the prison and prison informed the daughter that they can no longer take care of him. Daughter. The patient prison 3 weeks ago and put him in a hotel room to be taken care of. Patient had a right wound care which was not being taken care of. At the time of presentation to ER patient had a large wound on the back of the right calf with maggots in the wound. This is a stage IV wound. Purulent discharge and foul-smelling. Patient daughter who is a tractor trailer truck driver and states that she cannot take care of her father hence put him on the hotel room with arrangements for wound care and ADLs. Surgery consult appreciated Patient to follow-up with wound care clinic Daily dressing Patient was discharged on Levaquin orally for 10 days Assessment and Plan - Patient Problems (1) Cellulitis of right lower extremity Current Visit: Yes Status: Acute Plan to address problem: Patient has a large wound on the right calf region which needs debridement and wound care IV Unasyn and vancomycin started pending wound cultures (2) PAD (peripheral artery disease) Current Visit: Yes Status: Chronic Plan to address problem: On pentoxifylline Arterial duplex scan done (3) Peripheral neuropathy Current Visit: Yes Status: Chronic Qualifiers: Peripheral neuropathy type: polyneuropathy, unspecified Qualified Code(s): G62.9 - Polyneuropathy, unspecified Plan to address problem: On gabapentin (4) CHF (congestive heart failure) Current Visit: Yes Status: Chronic Qualifiers: Heart failure type: combined systolic and diastolic Plan to address problem: On torsemide (5) Hypertension Current Visit: Yes Status: Chronic Qualifiers: Hypertension type: primary hypertension Qualified Code(s): I10 - Essential (primary) hypertension Plan to address problem: Continue antihypertensive (6) DVT prophylaxis Current Visit: Yes Status: Acute Plan to address problem: On heparin and GI prophylaxis (7) Discharge planning issues Current Visit: Yes Status: Acute Plan to address problem: Patient will need prison placement [facility] does not want to take care of him exploration manager consult requested Disposition: 03 [facility] Final Discharge Diagnosis (Prints w/discharge instructions): Left lower extremity ulcer. PAD. Peripheral neuropathy - Discharge Diagnoses (1) Cellulitis of right lower extremity Status: Acute (2) PAD (peripheral artery disease) Status: Chronic (3) Peripheral neuropathy Status: Chronic Qualifiers: Peripheral neuropathy type: polyneuropathy, unspecified Qualified Code(s): G62.9 - Polyneuropathy, unspecified (4) CHF (congestive heart failure) Status: Chronic Qualifiers: Heart failure type: combined systolic and diastolic (5) Hypertension Status: Chronic Qualifiers: Hypertension type: primary hypertension Qualified Code(s): I10 - Essential (primary) hypertension (6) DVT prophylaxis Status: Acute (7) Discharge planning issues Status: Acute Core Measure Documentation - Palliative Care Palliative Care/ Comfort Measures: Not Applicable - Core Measures Any of the following diagnoses?: none Exam - Constitutional Vitals: Temp Pulse Resp BP Pulse Ox 98.6 F 56 L 19 126/87 96 01/04/21 12:11 01/04/21 12:12 01/04/21 12:11 01/04/21 12:11 01/04/21 12:12 General appearance: Present: no acute distress, well-nourished - EENT Eyes: Present: PERRL ENT: hearing intact, clear oral mucosa - Neck Neck: Present: supple, normal ROM - Respiratory Respiratory effort: normal Respiratory: bilateral: CTA - Cardiovascular Heart rate: 78 Rhythm: regular Heart Sounds: Present: S1 & S2. Absent: rub, click - Extremities Extremities: pulses symmetrical, No edema, abnormal (Ulcer on the lower extremity) Extremity abnormal: other (Ulcer on the lower extremity) Peripheral Pulses: within normal limits - Abdominal General gastrointestinal: Present: soft, non-tender, non-distended, normal bowel sounds Male genitourinary: Present: normal - Integumentary Integumentary: Present: clear, warm, dry - Musculoskeletal Musculoskeletal: gait normal, strength equal bilaterally - Psychiatric Psychiatric: appropriate mood/affect, intact judgment & insight - Neurologic Neurologic: CNII-XII intact, moves all extremities Plan Activity: no restrictions Diet: low salt Additional Instructions: Follow-up with wound care Follow up with: PRIMARY CAREMD [Primary Care Provider] - 3-5 Days ([facility] wound care clinic on 01/08/2021 @ 8 a.m. [address] [address] ([phone]) )
== END 2021-01-04 13:45 | DRG 603 ==
LOC: ED 12:24 → 3A 15:47 → OBSVTOIN 01-02 13:23
PROVIDERS: ADMIT Internal Medicine; ATTEND Internal Medicine
DX: L03.115 Cellulitis of right lower limb (principal); I50.42 Chronic combined systolic (congestive) and diastolic (congestive) heart failure; I13.0 Hypertensive heart and chronic kidney disease with heart failure and stage 1 through stage 4 chronic kidney disease, or unspecified chronic kidney disease; L97.919 Non-pressure chronic ulcer of unspecified part of right lower leg with unspecified severity; L97.929 Non-pressure chronic ulcer of unspecified part of left lower leg with unspecified severity; I73.9 Peripheral vascular disease, unspecified; N18.9 Chronic kidney disease, unspecified; J44.9 Chronic obstructive pulmonary disease, unspecified; F17.200 Nicotine dependence, unspecified, uncomplicated; F03.90 Unspecified dementia, unspecified severity, without behavioral disturbance, psychotic disturbance, mood disturbance, and anxiety; Z86.73 Personal history of transient ischemic attack (TIA), and cerebral infarction without residual deficits; G62.9 Polyneuropathy, unspecified
CPT/HCPCS: 36415; 80048; 80053; 80202; 85025; G0378; J3490; Q0162; J0295; J1644; J3370; J7030; J7040

== ENCOUNTER 2021-01-14 20:27 | Emergency (ER) | payer MEDICARE ==
[2021-01-14 23:21] LABS: Basophils # (Auto) 0.1 K/mm3 (0.0-0.1); Basophils % (Auto) 0.7 % (0.0-1.8); Eosinophils % (Auto) 0.4 % (0.0-4.3); Hematocrit 27.7 % (35.5-45.6); Hemoglobin 8.9 gm/dl (11.8-15.2); Lymphocytes # (Auto) 1.6 K/mm3 (1.2-5.4); Lymphocytes % (Auto) 17.6 % (13.4-35.0); Mean Corpuscular HGB Conc 32 % (32-34); Mean Corpuscular Volume 81 fl (84-94); Monocytes # (Auto) 1.1 K/mm3 (0.0-0.8); Monocytes % (Auto) 12.1 % (0.0-7.3); Platelet Count 358 K/mm3 (140-440); Red Blood Count 3.41 M/mm3 (3.65-5.03); Red Cell Distribution Width 17.4 % (13.2-15.2)
--- NOTE | 2021-01-14 23:32 | XRay Report ---
RIGHT TIBIA AND FIBULA 2 VIEWS INDICATION / CLINICAL INFORMATION: large right calf wound, rule out osteomyelitis COMPARISON: None available. FINDINGS: BONES / JOINT(S): No acute fracture or subluxation. No significant arthritis. SOFT TISSUES: Diffuse soft tissue swelling. Atherosclerotic vascular calcification. ADDITIONAL FINDINGS: None. Signer Name: Christian Berkowitz MD Signed: 01/14/2021 11:28 PM Workstation Name: [id number]
[2021-01-14 23:40] LABS: BUN/Creatinine Ratio 12; Blood Urea Nitrogen 12 mg/dL (9-20); Calcium 8.6 mg/dL (8.4-10.2); Hemolysis Index 282
--- NOTE | 2021-01-15 00:13 | Emergency Department Report ---
HPI - General Chief Complaint: Extremity Injury, Lower Time Seen by Provider: 01/14/21 21:00 - HPI HPI: This is a 60-year-old -[place] male presents to the emergency department via EMS from his residence with complaint of a chronic right lower extremity wound. The patient was seen and admitted here on 12/31 for this wound. He has a past medical history that includes COPD, hypertension, CHF, CKD, peripheral vascular disease. During his last admission he had a right lower extremity venous Doppler ultrasound that ruled out a DVT, and had an arterial Doppler that showed some mild tibial arterial disease. He had a full consultation done by v ascular surgery and they felt that the wound is most likely a venous stasis ulcer secondary to some venous reflux, and that this can be evaluated in the outpatient setting about 2 weeks from discharge, which would be in the next few days. I asked the patient if he has followed up with vascular surgery or with the wound care clinic, but the patient says that he is supposed to but has not done so yet. He says that there was supposed to be a wound care nurse coming to his residence to wrap and take care of his leg but she has "stopped coming." He denies any new injury. He denies any fever, increased swelling, purulent discharge. ED Past Medical Hx - Past Medical History Hx Hypertension: Yes Hx CVA: Yes Hx Congestive Heart Failure: Yes Hx Renal Disease: Yes Hx COPD: Yes Hx Dementia: Yes Additional medical history: Chronic ulcers, PVD, diastolic heart failure, vascular dementia, weakness, falls, - Surgical History Past Surgical History?: Yes - Social History Smoking Status: Current Some Day Smoker - Medications Home Medications: Home Medications Medication Instructions Recorded Confirmed Last Taken Type AtorvaSTATin [Lipitor] 40 mg PO HS 08/26/20 01/01/21 12/30/20 History Melatonin [Melatonin 5MG TAB] 5 mg PO HS 08/26/20 01/01/21 12/30/20 History Torsemide [Demadex] 20 mg PO DAILY 08/26/20 01/01/21 12/30/[address] [Depspike Mcmullen] 250 mg PO BID tablet 08/29/20 01/01/21 12/30/20 Rx Isosorb Dinit/Hydralazine [Bidil 1 each PO Q8HR tablet 08/29/20 01/01/21 12/30/20 Rx 20/37.5MG] Pentoxifylline [TRENtal] 400 mg PO Q12HR tablet 08/29/20 01/01/21 12/30/20 Rx Sertraline [Zoloft] 50 mg PO QDAY tablet 08/29/20 01/01/21 12/30/20 Rx traZODone [Desyrel] 50 mg PO QHS tablet 08/29/20 01/01/21 12/30/20 Rx Divalproex ER [Depakote ER] 250 mg PO DAILY #30 01/04/21 Unknown Rx Gabapentin 100 mg PO Q8HR #90 cap 01/04/21 Unknown Rx Isosorb Dinit/Hydralazine [Bidil 1 tab PO Q8H #90 01/04/21 Unknown Rx 20/37.5MG] Pentoxifylline 400 mg PO DAILY 30 Days #30 01/04/21 Unknown Rx Sertraline HCl [Zoloft] 75 mg PO DAILY #30 01/04/21 Unknown Rx carvediloL [Coreg] 25 mg PO BID #60 tablet 01/04/21 Unknown Rx carvediloL [Coreg] 25 mg PO BID@0800,1700 #60 tablet 01/04/21 Unknown Rx lisinopriL [Lisinopril] 40 mg PO DAILY #30 01/04/21 Unknown Rx oxyCODONE /ACETAMINOPHEN [Percocet 1 tab PO Q6H PRN #12 tablet 01/04/21 Unknown Rx 5/325 mg] levoFLOXacin [Levaquin TAB] 750 mg PO QDAY #5 tablet 01/15/21 Unknown Rx ED Review of Systems ROS: Stated complaint: FOOT INFECTION R Other details as noted in HPI Comment: All other systems reviewed and negative Constitutional: denies: chills, fever Eyes: denies: eye pain, vision change ENT: denies: ear pain, throat pain Respiratory: denies: cough, shortness of breath Cardiovascular: denies: chest pain, palpitations Gastrointestinal: denies: abdominal pain, vomiting Genitourinary: denies: dysuria, discharge Musculoskeletal: myalgia. denies: back pain Skin: other (Right lower leg wound). denies: pruritus Neurological: denies: numbness, paresthesias Physical Exam - Physical Exam Vital Signs: Vital Signs 01/14/21 20:35 Temperature 98.9 F Pulse Rate 98 H Respiratory 16 Rate Blood Pressure 176/108 [Left] O2 Sat by Pulse 100 Oximetry Physical Exam: GENERAL: The patient is well-developed well-nourished. HENT: Normocephalic. Atraumatic. Patient has moist mucous membranes. EYES: Extraocular motions are intact. NECK: Supple. Trachea is midline. CHEST/LUNGS: Clear to auscultation. There is no respiratory distress noted. HEART/CARDIOVASCULAR: Regular. There is no tachycardia. There is no murmur. ABDOMEN: Abdomen is soft, nontender. Patient has normal bowel sounds. SKIN: Skin is warm and dry. There is a large stage II-III ulcer to the distal posterior lateral right calf and ankle. No surrounding erythema. There is some nonpitting swelling of the calf. No purulent discharge. NEURO: The patient is awake, alert, and oriented. The patient is cooperative. The patient has no focal neurologic deficits. Normal speech. MUSCULOSKELETAL: There is some tenderness to palpation along the distal right lower extremity. ED Course Vital Signs 01/14/21 20:35 Temperature 98.9 F Pulse Rate 98 H Respiratory 16 Rate Blood Pressure 176/108 [Left] O2 Sat by Pulse 100 Oximetry ED Medical Decision Making - Lab Data Result diagrams: 01/14/21 22:53 01/14/21 22:53 Lab Results 01/14/21 01/14/21 Range/Units 22:53 22:53 WBC 9.2 (4.5-11.0) K/mm3 RBC 3.41 L (3.65-5.03) M/mm3 Hgb 8.9 L (11.8-15.2) gm/dl Hct 27.7 L (35.5-45.6) % MCV 81 L (84-94) fl MCH 26 L (28-32) pg MCHC 32 (32-34) % RDW 17.4 H (13.2-15.2) % Plt Count 358 (140-440) K/mm3 Lymph % (Auto) 17.6 (13.4-35.0) % [place] % (Auto) 12.1 H (0.0-7.3) % Eos % (Auto) 0.4 (0.0-4.3) % Baso % (Auto) 0.7 (0.0-1.8) % Lymph # (Auto) 1.6 (1.2-5.4) K/mm3 [place] # (Auto) 1.1 H (0.0-0.8) K/mm3 Eos # (Auto) 0.0 (0.0-0.4) K/mm3 Baso # (Auto) 0.1 (0.0-0.1) K/mm3 Seg Neutrophils % 69.2 (40.0-70.0) % Seg Neutrophils # 6.4 (1.8-7.7) K/mm3 Sodium 132 L (137-145) mmol/L Potassium 4.6 (3.6-5.0) mmol/L Chloride 100.1 (98-107) mmol/L Carbon Dioxide 17 L (22-30) mmol/L Anion Gap 20 mmol/L BUN 12 (9-20) mg/dL Creatinine 1.0 (0.8-1.3) mg/dL Estimated GFR > 60 ml/min BUN/Creatinine Ratio 12 % Glucose 92 (75-100) mg/dL Calcium 8.6 (8.4-10.2) mg/dL - Radiology Data Radiology results: report reviewed RIGHT TIBIA AND FIBULA 2 VIEWS INDICATION / CLINICAL INFORMATION: large right calf wound, rule out osteomyelitis COMPARISON: None available. FINDINGS: BONES / JOINT(S): No acute fracture or subluxation. No significant arthritis. SOFT TI SSUES: Diffuse soft tissue swelling. Atherosclerotic vascular calcification. ADDITIONAL FINDINGS: None. - Medical Decision Making Patient presents to the emergency department for evaluation of his chronic right lower extremity wound as he says that the wound care nurse that was supposed to attend to him at his senior care house has not been showing up. Patient was seen here about 2 weeks ago for this wound and had a comprehensive evaluation including negative venous Doppler ultrasound for DVT, and arterial Doppler that shows mild tibial arterial disease, and a vascular surgery consult. It appears that the wound is secondary to chronic venous stasis. The patient denies any increased pain, increased swelling, development of fever, or any trauma or injury. The wound appears relatively clean. It appears to be a stage II-III ulcer. No significant surrounding erythema. No purulent discharge seen. The patient does not have any tenderness to palpation to other areas of the calf or lower extremity besides where he has the chronic wound. The foot appears to have perfusion. Patient's labs are mostly unremarkable including CBC and metabolic panel. He does have anemia with hemoglobin of 8.9 but this is improved from previous. No leukocytosis. X-ray of the right tib-fib does not show any evidence of osteomyelitis or subcutaneous gas. Vital signs have been reassuring including being afebrile. For all these reasons patient appears safe for discharge home. He has been given a course of antibiotics, and outpatient referral for Dr. Paiz for wound care and Dr. Flores for vascular surgery. The patient says that his daughter should be able to help him make these appointments and to attend them. The patient will return to the emergency department with any worsening of his symptoms or with any acute distress. Critical Care Time: No Critical care attestation.: If time is entered above; I have spent that time in minutes in the direct care of this critically ill patient, excluding procedure time. ED Disposition Clinical Impression: Hypertension, PAD (peripheral artery disease), Leg wound, right, Venous stasis ulcer, Anemia Disposition: 01 HOME / SELF CARE / HOMELESS Is pt being admited?: No Condition: Stable Instructions: Venous Ulcer, Wound Care, Adult, Hypertension, Adult, Hypertension (ED) Additional Instructions: Please follow-up with a primary care physician in the next few days. I have given you a referral for Dr. Paiz and the wound care clinic. I have also given you a referral for a local vascular surgeon, Dr. Flores, to follow-up regarding your peripheral vascular and arterial disease. You can clean the wound with soap and water and then make sure it remains dry. Please monitor for any further signs of infection such as increased pain, increased swelling, surrounding redness, discharge of pus, or development of fever. Return to the emergency department with any worsening of your symptoms, new or concerning symptoms not addressed during this current emergency department visit, or with any acute distress. Prescriptions: levoFLOXacin [Levaquin TAB] 750 mg PO QDAY #5 tablet Referrals: PRIMARY MD SAVANNAH [Primary Care Provider] - 2-3 Days LUIS MANUEL PAIZ MD [Staff Physician] - 2-3 Days LESYL FLORES MD [Staff Physician] - 2-3 Days [facility] [Outside] - 2-3 Days Time of Disposition: 00:23
[2021-01-15] MEDS ORDERED: HYDROcodone/ACETAMINOPHEN 5-325 MG TAB PO ONE (00:36)
[2021-01-15] MEDS ORDERED: levoFLOXacin 750 MG TAB PO ONE (00:36)
[2021-01-15] MEDS ORDERED: NALOXONE 2 MG/2 ML INJ ONE (06:16)
[2021-01-15 07:25] VITALS: BP 161/98
== END 2021-01-15 10:34 | disposition home or self-care (01) ==
LOC: ED 20:27
DX: I83.018 Varicose veins of right lower extremity with ulcer other part of lower leg (principal); L97.819 Non-pressure chronic ulcer of other part of right lower leg with unspecified severity; I73.9 Peripheral vascular disease, unspecified; D64.9 Anemia, unspecified; I11.0 Hypertensive heart disease with heart failure; I50.9 Heart failure, unspecified; J45.909 Unspecified asthma, uncomplicated; F17.200 Nicotine dependence, unspecified, uncomplicated; Z86.73 Personal history of transient ischemic attack (TIA), and cerebral infarction without residual deficits; Z98.890 Other specified postprocedural states; Z79.899 Other long term (current) drug therapy
CPT/HCPCS: 36415; 73590; 80048; 85025; 99284; J2310